=== PATIENT | female | born 1945 | race Caucasian/White ===

== ENCOUNTER → 2019-07-13 08:38 | Outpatient (BNVA) | payer MEDICARE, MEDICAID, SELFPAY | PROVIDERS: Family Provider Internal Medicine; PCP Internal Medicine; Visit Provider Nurse Practitioner Psychiatric/Mental Health | DX: F33.42 Major depressive disorder, recurrent, in full remission (principal); F41.9 Anxiety disorder, unspecified | CPT/HCPCS: 99214 ==

== ENCOUNTER → 2019-10-05 07:46 | Outpatient (BNVA) | payer MEDICARE, MEDICAID, SELFPAY | PROVIDERS: Family Provider Internal Medicine; PCP Internal Medicine; Visit Provider Nurse Practitioner Psychiatric/Mental Health | DX: F41.9 Anxiety disorder, unspecified (principal); F33.42 Major depressive disorder, recurrent, in full remission | CPT/HCPCS: 99212 ==

== ENCOUNTER 2019-11-01 09:20 | Emergency (ER) | payer MEDICARE, MEDICAID, SELFPAY ==
[2019-11-01 09:22] VITALS: BP 142/64; PULSE 90; RESP 18; TEMP 36.6; O2SAT 96; BMI 36.0
--- NOTE | 2019-11-01 09:32 | ED_ITS ---
HPI - Extremity Problem General: Chief complaint: Extremity Injury, Lower Stated complaint: LEFT LEG PAIN S/P FALL Time Seen by Provider: 11/01/19 09:21 History of Present Illness: HPI Narrative: Patient is a 73-year-old female who comes to the ED with left lower extremity pain after having a fall. Fall occurred on Saturday. Patient does take a blood thinner(clopidogrel). patient says she woke up and just got out of bed and she stood up and took a couple steps and started lost her balance and fell down. Denies any loss of consciousness or head trauma. After patient has had a hematoma on left teague it is continually gotten bigger and more painful. Patient also describes having some pain in the hip region when she moves or weightbears. Patient said she does not need any pain meds and says that if she sitting and not moving her pain is like a 1-2 out of 10. Associated symptoms: Deny chest pain, fever(s) or rash Review of Systems Const: Denies: fever(s), chills or fatigue Eyes: Denies: change in vision or eye discomfort ENMT: Denies: throat pain, odynophagia, nasal discharge or nasal congestion Card: Denies: chest pain, palpitations, edema, swelling of feet/ankles, dyspnea on exertion or orthopnea Resp: Denies: dyspnea, productive cough or non-productive cough GI: Denies: abdominal pain, nausea, vomiting, diarrhea, constipation or hematochezia : Denies: flank pain, dysuria or hematuria Musc: Reports: extremity pain (left lower extremity-lower leg and left hip) and extremity swelling; Denies: neck pain or back pain Skin/Breast: Denies: rash or new lesions Neuro: Denies: headache(s), numbness in extremities or weakness in extremities PFS ED PFSH: Medical History Anxiety disorder, unspecified Major depressive disorder, recurrent, in full remission Social History Smoking and tobacco status: former smoker Quit status (tobacco): has quit using tobacco Year quit tobacco: 1196 Former quit date comment: 2 PPD since age 16 Second hand smoke exposure: No Physical Exam Const: COMMON NORMALS: patient oriented x3 HENMT: COMMON NORMALS: normocephalic HEAD & SCALP: normocephalic MOUTH: Normal oral and palatal mucosa present THROAT: posterior oropharynx normal and uvula midline Eye: COMMON NORMALS: Equal, round and reactive pupils present PUPIL: Yes Equal, round and reactive pupils present Neck/C-Spine: COMMON NORMALS: supple GENERAL: Yes normal visual inspection Resp: COMMON NORMALS: normal respiratory effort, No retractions, No use of accessory muscles and clear to auscultation bilaterally AUSCULTATION: clear to auscultation bilaterally Cardio: COMMON NORMALS: regular rate, regular rhythm, S1 normal heart sound present, S2 normal heart sound present, No gallops present (Cardio), No clicks present (Cardio), No murmurs present (Cardio) and Peripheral pulses 2+ throu ghout RATE: regular rate RHYTHM: regular rhythm HEART SOUNDS: S1 normal heart sound present and S2 normal heart sound present PERIPHERAL PULSES: Peripheral pulses 2+ throughout GI: COMMON NORMALS: Normal to inspection, nondistended, normoactive bowel sounds present, Soft to palpation, non-tender and no masses PALPATION: Yes Soft to palpation : COMMON NORMALS: Yes no CVA tenderness BLADDER/KIDNEY EXAM: Yes no CVA tenderness Back/Pelvis: COMMON NORMALS: no CVA tenderness Extremity: GENERAL: Yes normal exam except as noted LEFT LOWER EXTREMITY: Yes hip joint (Patient explained parents some left hip pain upon flexion of leg.) Left hip: No palpation, Yes ROM (Pain in left hip upon flexion of the left leg.) and Yes neurovascular exam (Intact.) and Yes lower leg Left lower leg: Yes inspection (Patient had a large hematoma on anterior medial side of lower leg. Mild swelling), Yes palpation (Tender upon palpation of the hematoma.) and Yes neurovascular exam (intact) Neuro: COMMON NORMALS: patient oriented x3 and moves all extremities Skin: NARRATIVE SKIN EXAM: Patient has a large hematoma on the left lower leg. It is tender to the touch. GENERAL SKIN EXAM: dry skin Course Vital Signs: Vital signs: Vital Signs Temperature 97.9 F 11/01/19 09:22 Pulse Rate 90 11/01/19 09:22 Respiratory Rate 18 11/01/19 09:22 Blood Pressure 142/64 11/01/19 09:22 Pulse Oximetry 96 11/01/19 09:22 MDM - Extremity (Nontraumatic) MDM Narrative: Medical decision making narrative: Patient is a 73-year-old female comes to the ED after having a fall several days ago. She is having left lower extremity pain in lower leg and also in left hip. She has hematoma on her left anterior aspect of lower leg. X-ray of tibia and fibula showed no acute fractures. X-ray of left hip was performed and showed no acute findings or fractures. Ultrasound venous duplex of left lower extremity showed no blood clots or DVTs. Patient was discharged with a hematoma and told to continue taking Tylenol to help with pain and to rest, ice and elevate leg to help with symptoms. Patient told to follow-up with PCP in 7 to 10 days. Patient understood and agreed with plan. Imaging Data^: Xray Ortho: Attestation: I personally reviewed and interpreted this imaging study as follows: Radiologist's impression: [address] [address] XRay Report Signed Patient: Hyun Bowers Unit #: [id number] : 1945 Acc t#:[id number] Age/Sex: 73 / F ADM Date: 11/01/19 Loc: ER Room/Bed: Attending Dr: Ordering Provider/Ordering MD: Felipe Booker Date of Service: 11/01/19 Procedure(s): XR hip LT 2-3V wo/w pel* [id number] Accession Number(s): [id number] Report Number: [id number] PROCEDURE INFORMATION: Exam: XR Left Hip with Pelvis when Performed Exam date and time: 11/01/2019 9:43 AM Age: 73 years old Clinical indication: Hip pain; Left hip; Additional info: Fall, pain in hip with movement TECHNIQUE: Imaging protocol: XR Left hip with pelvis when performed. Views: 2 or 3 views. COMPARISON: None FINDINGS: Bones/joints: Osteopenia, without acute bony injury or malalignment. If an occult fracture is of clinical concern, CT correlation can be performed. Soft tissues: Skin fold. No radiopaque foreign body. XR/XR hip LT 2-3V wo/w pel* [id number] IMPRESSION: Osteopenia, without acute bony injury or malalignment. Dictated By: Allan Connors MD Signed By: Allan Connors MD Signed Date/Time: 11/01/19 1101 DD/ 1100 [facility] [address] [place] [address] XRay Report Signed Patient: Hyun Bowers Unit #: [id number] : 1945 Age/Sex: 73 / F ADM Date: 11/01/19 Loc: ER Room/Bed: Attending Dr: Ordering Provider/Ordering MD: Felipe Booker Date of Service: 11/01/19 Procedure(s): XR tibia fibula LT 2V 13624 Accession Number(s): [id number] Report Number: [id number] PROCEDURE INFORMATION: Exam: XR Left Tibia and Fibula Exam date and time: 11/01/2019 9:43 AM Age: 73 years old Clinical indication: Pain; Lower leg; Left; Additional info: Fall, pain and hematoma TECHNIQUE: Imaging protocol: XR Left tibia and fibula. Views: 2 views. COMPARISON: No relevant prior studies available. FINDINGS: Bones/joints: Osteopenia, without acute bony injury or malalignment in the visualized left lower leg. Degenerative change. Soft tissues: Poorly defined 3.7 cm ovoid density in the soft tissues of the medial calf. XR/XR tibia fibula LT 2V [id number] IMPRESSION: 1. Osteopenia, without acute bony injury or malalignment in the visualized left lower leg. 2. Poorly defined 3.7 cm ovoid density in the soft tissues of the medial calf. Dictated By: Allan Connors MD Signed By: Allan Connors MD Signed Date/Time: 11/01/19 1059 DD/ 105 Vascular: Attestation: I personally reviewed and interpreted this imaging study as follows: Radiologist's impression: Ultrasound venous duplex of left lower extremity- prelim report showed no blood clots or DVTs present. Discharge Plan Discharge Patient Disposition: Home, Self-Care Clinical Impression: Hematoma and contusion Fall as cause of accidental injury at home as place of occurrence Qualifiers: Encounter type: initial encounter Qualified Code(s): W19.XXXA - Unspecified fall, initial encounter Condition: Stable Prescriptions: No Action aspirin [Adult Low Dose Aspirin] 81 mg tablet,delayed release (DR/EC) 81 mg PO DAILY RF: 0 metoprolol succinate 100 mg tablet extended release 24 hr 100 mg PO DAILY RF: 0 metformin 500 mg tablet extended release 24 hr 1,000 mg PO BID RF: 0 buspirone 10 mg tablet 10 mg PO BID Qty: 60 RF: 2 fluoxetine [Prozac] 20 mg capsule 20 mg PO QAM Qty: 30 RF: 2 trazodone 50 mg tablet 50 mg PO .QHS PRN (Reason: insomnia) Qty: 30 RF: 2 azelastine 0.15 % (205.5 mcg) spray,non-aerosol 1 spray INTRANASAL BID PRN (Reason: unknown) RF: 0 pantoprazole [Protonix] 20 mg tablet,delayed release (DR/EC) 20 mg PO DAILY RF: 0 acetaminophen-codeine [Tylenol-Codeine #3] 300-30 mg tablet 1 tab PO Q8H PRN (Reason: Pain) RF: 0 tamsulosin [Flomax] 0.4 mg capsule 0.4 mg PO DAILY RF: 0 clopidogrel 75 mg tablet 75 mg PO DAILY RF: 0 Januvia 100 mg tablet 100 mg PO DAILY RF: 0 Ocuvite Eye Health 50 mg-15 unit- 4.5 mg-2.5 mg tablet,chewable 1 tab PO DAILY RF: 0 bismuth subsalicylate [Pepto-Bismol] 262 mg/15 mL suspension 524 mg PO DAILY PRN (Reason: unknown) RF: 0 artifi.tears(hypromellose)(PF) 0.3 % drops 1 drop ophthalmic (eye) BEDTIME PRN (Reason: unknown) RF: 0 diazepam [Valium] 5 mg tablet 5 mg PO TID PRN (Reason: anxiety) RF: 0 meclizine 25 mg tablet 25 mg PO TID PRN (Reason: dizziness) RF: 0 hydrochlorothiazide 25 mg tablet 25 mg PO DAILY RF: 0 lovastatin 40 mg tablet 40 mg PO DAILY RF: 0 montelukast [Singulair] 10 mg tablet 10 mg PO DAILY RF: 0 magnesium hydroxide [Milk of Magnesia] 400 mg/5 mL suspension 15 ml PO DAILY PRN (Reason: Constipation) RF: 0 fluticasone propionate [Flonase Allergy Relief] 50 mcg/actuation spray,suspension 2 spray INTRANASAL DAILY RF: 0 promethazine-DM 6.25-15 mg/5 mL Syrup 5 ml PO Q6H PRN (Reason: unknown) RF: 0 amlodipine 5 mg Tablet 5 mg PO DAILY RF: 0 Tylenol Extra Strength 500 mg Tablet 500 mg PO Q6H PRN (Reason: Pain) RF: 0 hydralazine 100 mg tablet 100 mg PO TID RF: 0 ammonium lactate 5 % Lotion 1 applic TOPICAL BEDTIME RF: 0 tdocycyq-cqoxtrliv-foxhboxvce 1.75 mg-10,000 unit-0.025mg/mL Drops 1.75 drp ophthalmic (eye) BEDTIME RF: 0 Ocuvite Adult 50 Plus 250-5-1 mg Capsule 1 cap PO DAILY RF: 0 Discharge Orders: Discharge Order (Routine); Ordered 11/01/19 Ordered By: Felipe Booker Referrals: Chidi Anaya DO [Primary Care Provider] - Discharge Diet: Regular Discharge Activity: Increase activity as tolerated Patient Instructions: Contusion in Adults (ED), Fall Prevention (ED) Activity Restrictions/Additional Instructions: Follow-up with your PCP in 7 to 10 days for reevaluation. You can apply cold pack on leg to help with symptoms. Take Tylenol for pain. Coding Level of Care Code ED Billet Heater Operator for Peggy Fwd Exam Comprehensive
--- NOTE | 2019-11-01 09:41 | XRR_ITS ---
PROCEDURE INFORMATION: Exam: XR Left Hip with Pelvis when Performed Exam date and time: 11/01/2019 9:43 AM Age: 73 years old Clinical indication: Hip pain; Left hip; Additional info: Fall, pain in hip with movement TECHNIQUE: Imaging protocol: XR Left hip with pelvis when performed. Views: 2 or 3 views. COMPARISON: None FINDINGS: Bones/joints: Osteopenia, without acute bony injury or malalignment. If an occult fracture is of clinical concern, CT correlation can be performed. Soft tissues: Skin fold. No radiopaque foreign body. XR/XR hip LT 2-3V wo/w pel* [id number] IMPRESSION: Osteopenia, without acute bony injury or malalignment.
--- NOTE | 2019-11-01 09:41 | USR_ITS ---
PROCEDURE INFORMATION: Exam: US Duplex Left Lower Extremity Veins, Limited Exam date and time: 11/01/2019 9:43 AM Age: 73 years old Clinical indication: Pain; Swelling (edema) of limb; Lower extremity, left; Leg, lower; Additional info: Pain and swelling TECHNIQUE: Imaging protocol: Real-time Duplex ultrasound of the Left Lower Extremity with 2-D cody scale, color Doppler flow and spectral waveform analysis with image documentation. Limited exam focused on the left lower extremity veins. COMPARISON: No relevant prior studies available. FINDINGS: Left deep veins: No deep venous thrombosis in the visualized left common femoral, profunda femoris, superficial femoral, popliteal, posterior tibial, or peroneal veins. Left superficial veins: Unremarkable. Saphenofemoral junction is patent without thrombus. Soft tissues: Unremarkable. US/CV venous duplex [facility] [id number] IMPRESSION: No deep venous thrombosis in the visualized left lower extremity.
--- NOTE | 2019-11-01 09:41 | XRR_ITS ---
PROCEDURE INFORMATION: Exam: XR Left Tibia and Fibula Exam date and time: 11/01/2019 9:43 AM Age: 73 years old Clinical indication: Pain; Lower leg; Left; Additional info: Fall, pain and hematoma TECHNIQUE: Imaging protocol: XR Left tibia and fibula. Views: 2 views. COMPARISON: No relevant prior studies available. FINDINGS: Bones/joints: Osteopenia, without acute bony injury or malalignment in the visualized left lower leg. Degenerative change. Soft tissues: Poorly defined 3.7 cm ovoid density in the soft tissues of the medial calf. XR/XR tibia fibula LT 2V [id number] IMPRESSION: 1. Osteopenia, without acute bony injury or malalignment in the visualized left lower leg. 2. Poorly defined 3.7 cm ovoid density in the soft tissues of the medial calf.
[2019-11-01 15:45] VITALS: BP 155/54; PULSE 77; RESP 16; O2SAT 96
== END 2019-11-01 15:26 | disposition home or self-care (01) ==
PROVIDERS: Emergency Provider Physician Assistant; Family Provider Internal Medicine; PCP Internal Medicine
DX: S80.12XA Contusion of left lower leg, initial encounter (principal); Z79.82 Long term (current) use of aspirin; Z79.02 Long term (current) use of antithrombotics/antiplatelets; W19.XXXA Unspecified fall, initial encounter; Z87.891 Personal history of nicotine dependence
CPT/HCPCS: 12345; 73502; 73590; 93971; 99281; 99283

== ENCOUNTER → 2020-01-04 08:46 | Outpatient (BNVA) | payer MEDICARE, MEDICAID, SELFPAY | PROVIDERS: Family Provider Internal Medicine; PCP Internal Medicine; Visit Provider Nurse Practitioner Psychiatric/Mental Health | DX: F41.9 Anxiety disorder, unspecified (principal); F33.42 Major depressive disorder, recurrent, in full remission | CPT/HCPCS: 99212 ==

== ENCOUNTER 2020-03-28 10:25 | Outpatient (CLI) | payer MEDICARE, MEDICAID, SELFPAY ==
--- NOTE | 2020-03-28 10:32 | MM_ITS ---
WS: [id number] BILATERAL DIGITAL SCREENING MAMMOGRAPHY WITH CAD CLINICAL INFORMATION: SCREENING HISTORY: Screening mammogram. No current complaints. COMPARISON: TECHNIQUE: Bilateral CC and MLO views. FINDINGS: Scattered fibroglandular densities bilaterally. No suspicious focal mass, asymmetry, calcifications, or architectural distortion. No evidence of malignancy. Lucent centered calcifications. Dystrophic ca lcification right breast. Vascular calcification. MM/[place] [id number] IMPRESSION: BI-RADS: 2-Benign FOLLOW UP: 1 Year Follow-up Recommend return to annual screening mammography.
== END 2020-03-28 10:26 | disposition home or self-care (01) ==
LOC: RADSHAW 10:28
PROVIDERS: PCP Internal Medicine; Visit Provider Internal Medicine
DX: Z12.31 Encounter for screening mammogram for malignant neoplasm of breast (principal)
CPT/HCPCS: 99211; 77067; G0463

== ENCOUNTER → 2020-06-13 08:19 | Outpatient (BNVA) | payer MEDICARE, MEDICAID, SELFPAY | PROVIDERS: PCP Internal Medicine; Visit Provider Nurse Practitioner Psychiatric/Mental Health | DX: F33.42 Major depressive disorder, recurrent, in full remission (principal); F41.9 Anxiety disorder, unspecified | CPT/HCPCS: 99212 ==

== ENCOUNTER → 2020-08-29 10:08 | Outpatient (BNVA) | payer MEDICARE, MEDICAID, SELFPAY | PROVIDERS: PCP Internal Medicine; Visit Provider Nurse Practitioner Psychiatric/Mental Health | DX: F33.42 Major depressive disorder, recurrent, in full remission (principal); F41.9 Anxiety disorder, unspecified | CPT/HCPCS: 99213 ==

== ENCOUNTER → 2020-12-06 13:59 | Outpatient (BNVA) | payer MEDICARE, MEDICAID, SELFPAY | PROVIDERS: PCP Internal Medicine; Visit Provider Nurse Practitioner Psychiatric/Mental Health | DX: F33.42 Major depressive disorder, recurrent, in full remission (principal); F41.9 Anxiety disorder, unspecified | CPT/HCPCS: 99213 ==

== ENCOUNTER 2021-01-25 14:19 | Outpatient (CLI) | payer MEDICARE, MEDICAID, SELFPAY ==
--- NOTE | 2021-01-25 14:23 | XR_ITS ---
WS: [id number] DEXA (DUAL ENERGY X-RAY ABSORPTIOMETRY) Bone mineral density was performed using a [employer] machine. HISTORY: POST MENOPAUSAL COMPARISON: None available. Lumbar spine BMD (L1-L4): 1.359 g/cm2 T score: 1.5 Z score: 2.1 Total hip BMD: Left: 0.686 g/cm2. T score: -2.6 Z score: -1.6 Right: 0.773 g/cm2. T score: -1.9 Z score: -0.9 10 year probability of a major osteoporotic fracture is 24%. XR/XR DEXA axial skeleton* [id number] IMPRESSION: OSTEOPOROSIS based upon the WHO classification for females.
== END 2021-01-25 14:20 | disposition home or self-care (01) ==
PROVIDERS: PCP Internal Medicine; Visit Provider Physician Assistant
DX: Z78.0 Asymptomatic menopausal state (principal); M81.0 Age-related osteoporosis without current pathological fracture
CPT/HCPCS: 77080

== ENCOUNTER → 2021-02-28 12:29 | Outpatient (BNVA) | payer MEDICARE, MEDICAID, SELFPAY | PROVIDERS: PCP Internal Medicine; Visit Provider Nurse Practitioner Psychiatric/Mental Health | DX: F33.42 Major depressive disorder, recurrent, in full remission (principal); F41.9 Anxiety disorder, unspecified | CPT/HCPCS: 99213 ==

== ENCOUNTER 2021-05-08 11:28 | Outpatient (CLI) | payer MEDICARE, MEDICAID, SELFPAY ==
[2021-05-08 12:43] LABS: Basophils % 0.9 %; Eosinophils # 0.1 10^3/uL (0.0-0.8); Eosinophils % 1.6 %; Hematocrit 33.6 % (37.0-47.0); Hemoglobin 10.5 g/dL (11.5-15.3); Lymphocytes % 23.2 %; Mean Corpuscular HGB Conc 31.3 g/dL (30.0-36.0); Mean Corpuscular Hemoglobin 26.9 pg (28.0-34.0); Mean Corpuscular Volume 85.9 fl (81-99); Mean Platelet Volume 9.7 fL (7.4-10.4); Monocytes # 0.3 10^3/uL (0.2-0.9); Monocytes % 7.7 %; Neutrophils # 2.92 10^3/uL (1.8-7.7); Neutrophils % 66.4 %; Nucleated Red Blood Cells % 0 %; Platelet Count 191 10^3/cmm (130-400); Red Blood Count 3.91 10^6/uL (4.1-5.3); Red Cell Distribution Width 15.6 % (12.1-15.1); White Blood Count 4.4 10^3/uL (4.0-10.0)
--- NOTE | 2021-05-08 14:08 | ONC FU_ITS ---
Dr. Butler follow up note Patient: Hyun Bowers Unit #: [id number]: 1945 Dicatated By: Ben Butler M.D.Date of Visit:May 08, 2021 Onc Med Follow-up/Prog Note History of Present Illness: Ms. Hyun Bowers, is a 75-year-old female, who was evaluated by her PMD for generalized weakness and fatigue and dizziness in February 2021, at that time routine lab work-up done on February 16, 2021 showed white blood count 5.6 hemoglobin 9.6 hematocrit 30.1, platelets 206,000, iron studies shows ferritin 3, iron saturation 8%, TIBC 390, iron 32, B12 204, SPEP no M protein, hepatitis B surface antigen, nonreactive but positive for hepatitis B surface antibody. Patient denies any history of melena or hematochezia, denies any history of anemia, denies any history of recent blood transfusion, as per patient only time she received blood transfusion was when she was with her last baby about 45 years ago. 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 Denies any night sweats, denies any weight loss, denies any recurrent fever, denies any history of gastric surgery, denies any jaundice, denies any abdominal pain, denies any urine or stool color changes As per patient , she was started on oral iron supplement in February 2021, tolerating reasonably well Medications: Acetaminophen 1 - 2 Tablet (of 500 mg) Oral q 4 hours PRN, Acetaminophen-Codeine 1 Tablet (of 300-30 mg) Oral q 8 minutes PRN, amLODIPine Besylate 1 Tablet (of 10 mg) Oral daily, Artificial Tear Solution Solution Ophthalmic PRN, Aspirin 1 Tablet (of 81 mg) Tablet, enteric coated Oral daily, Azelastine HCl 1 Arona(s) (of 0.15 %) Solution Nasal b.i.d. PRN, busPIRone HCl 1 Tablet (of 10 mg) Oral daily, Chlorthalidone 1 Tablet (of 25 mg) Oral daily, Clopidogrel Bisulfate 1 Tablet (of 75 mg) Oral daily, diazePAM 1 Tablet (of 5 mg) Oral q 8 hours PRN, Ferrous Sulfate 1 Tablet (of 325 (65 fe) mg) Oral daily, Flonase 1 Arona(s) (of 50 mcg/act) Suspension Nasal daily, FLUoxetine HCl 1 Capsule (of 20 mg) Oral daily, Fosamax , hydrALAZINE HCl 1 Tablet (of 100 mg) Oral t.i.d., Januvia 1 Tablet (of 100 mg) Oral daily, Lovastatin 1 Tablet (of 20 mg) Oral at bedtime, Meclizine HCl 1 Tablet (of 25 mg) Oral q 8 hours PRN, metFORMIN HCl ER (OSM) 1 Tablet (of 1000 mg) Tablet SR 24 HR Oral b.i.d., Metoprolol Succinate ER 1 Tablet (of 100 mg) Tablet SR 24 HR Oral daily, Milk of Magnesia Suspension Oral PRN, Ocuvite Adult 50+ 1 Capsule Oral daily, Promethazine-DM 5 mL (of 5-7.5 mg/5mL) Syrup Oral q 6 hours PRN, Protonix 1 Tablet Intravenous daily, Tamsulosin HCl 1 Tablet (of 0.4 mg) Capsule Oral daily Allergies: No Known Allergies. Review of Systems: Review of Systems is not available for this patient. Vital Signs: Performed on May 08, 2021 13:19 Height - 66 in Weight - 221 lbs (HIGH) BSA - 2.09 sq.m BMI - 35.67 (HIGH) Temperature - 97.7 F (LOW) Pulse - 75 /min Respiration - 18 /min BP - 127/72 mm(hg) O2 Sat - 98 % Pain - 0 Fatigue - 5 Performance Status: 1 - No physically strenuous activity, but ambulatory and able to carry out light or sedentary work (e.g. office work, light house work). (ECOG) Physical Examination: ENMT - No mouth sores, no thrush, no jaundice, No cervical lymphadenopathy, Respiratory - Lungs are clear to auscultation, Cardiovascular - Regular rate and rhythm of heart, Abdomen - Soft, bowel sounds present, Extremities - 1+ edema bilaterally. Lab/Imaging: Most recent lab results are not available for this patient. Impression: Combined iron deficiency/B12 deficiency anemia diagnosed per labs done on February 16, 2021 which showed ferritin 3, iron saturation 8%, TIBC 390, B12 204, SPEP, no restricted protein, Generalized weakness fatigue, due to above Hepatitis C positive, Diabetes mellitus, Of hypertension, CHF, Osteoporosis, Plan: Discussed with patient regarding her labs white blood count 4.4 hemoglobin 10.5 hematocrit 33.6 platelets 191,000 MCV 85.9 with normal differential Clinically, patient is doing well, feeling somewhat better since on iron supplement, her follow-up labs shows hemoglobin improved to 10.5 g compared to 9.6 g on February 16, 2021. Etiology of her combined iron/B12 deficiency is unclear could be due to malabsorption plus minus chronic blood loss. At this point we will add, B12 supplement 1000 mcg IM weekly x4, as a loading dose then monthly as maintenance, we will also repeat her iron studies today and compared with one from February 2021, if there is improvement in iron stores, will continue oral iron otherwise we may consider parenteral iron. We will also refer her to gastroenterology for EGD/colonoscopy for iron deficiency anemia. And then patient will return to clinic in 1 month with CBC, iron studies and B12 supplement. Signed By: Ben Butler M.D. <<Signature on File>>
[2021-05-08] MEDS: cyanocobalamin 1,000 mcg/mL SDV 1000 MCG SUBCUT (14:33)
[2021-05-08 15:27] LABS: Ferritin 21 ng/mL (15-150); Iron 29 ug/dL (37-145); Percent Saturation 9.6 % (20-50); Total Iron Binding Capacity 301 mcg/dl; Unsaturated Iron Binding 272 ug/dL (112-347)
== END 2021-05-08 11:29 | disposition home or self-care (01) ==
LOC: ONCMED 11:32
PROVIDERS: PCP Internal Medicine; Visit Provider Internal Medicine Hematology & Oncology
DX: D50.9 Iron deficiency anemia, unspecified (principal); E53.8 Deficiency of other specified B group vitamins; B19.20 Unspecified viral hepatitis C without hepatic coma; E11.9 Type 2 diabetes mellitus without complications; I11.0 Hypertensive heart disease with heart failure; I50.9 Heart failure, unspecified; M81.0 Age-related osteoporosis without current pathological fracture
CPT/HCPCS: 36415; 82728; 83540; 83550; 85025; 96372; 99205; J3420

== ENCOUNTER 2021-05-15 13:16 | Outpatient (CLI) | payer MEDICARE, MEDICAID, SELFPAY ==
[2021-05-15] MEDS: cyanocobalamin 1,000 mcg/mL SDV 1000 MCG IM (13:46)
== END 2021-05-15 13:17 | disposition home or self-care (01) ==
LOC: ONCMED 13:20
PROVIDERS: PCP Internal Medicine; Visit Provider Internal Medicine Medical Oncology
DX: D50.9 Iron deficiency anemia, unspecified (principal); D51.9 Vitamin B12 deficiency anemia, unspecified; Z79.899 Other long term (current) drug therapy
CPT/HCPCS: 96372; J3420

== ENCOUNTER → 2021-05-30 07:31 | Outpatient (BNVA) | payer MEDICARE, MEDICAID, SELFPAY | PROVIDERS: PCP Internal Medicine; Visit Provider Nurse Practitioner Psychiatric/Mental Health | DX: F33.42 Major depressive disorder, recurrent, in full remission (principal); F41.9 Anxiety disorder, unspecified | CPT/HCPCS: 99213 ==

== ENCOUNTER → 2021-10-16 13:16 | Outpatient (BNVA) | payer MEDICARE, MEDICAID, SELFPAY | PROVIDERS: PCP Internal Medicine; Visit Provider Nurse Practitioner Psychiatric/Mental Health | DX: F33.42 Major depressive disorder, recurrent, in full remission (principal); F41.9 Anxiety disorder, unspecified | CPT/HCPCS: 99213 ==

== ENCOUNTER → 2021-10-18 08:34 | Outpatient (BNVA) | payer MEDICARE, MEDICAID, SELFPAY | PROVIDERS: PCP Internal Medicine; Referring Provider Physician Assistant; Visit Provider Podiatrist Foot & Ankle Surgery | DX: E11.621 Type 2 diabetes mellitus with foot ulcer (principal); L97.522 Non-pressure chronic ulcer of other part of left foot with fat layer exposed; E11.42 Type 2 diabetes mellitus with diabetic polyneuropathy; M21.611 Bunion of right foot; M20.41 Other hammer toe(s) (acquired), right foot; M20.42 Other hammer toe(s) (acquired), left foot; L85.3 Xerosis cutis; M76.829 Posterior tibial tendinitis, unspecified leg; I73.9 Peripheral vascular disease, unspecified; Z91.81 History of falling; M21.612 Bunion of left foot | CPT/HCPCS: 11042 ==

== ENCOUNTER 2021-10-18 10:54 | Outpatient (CLI) | payer MEDICARE, MEDICAID, SELFPAY | END 2021-10-18 10:55 | disposition home or self-care (01) | LOC: SPT 10:54 | PROVIDERS: PCP Internal Medicine; Visit Provider Podiatrist Foot & Ankle Surgery | DX: Z46.89 Encounter for fitting and adjustment of other specified devices (principal); L97.522 Non-pressure chronic ulcer of other part of left foot with fat layer exposed | CPT/HCPCS: 97760; L4361 ==

== ENCOUNTER → 2021-11-09 11:51 | Outpatient (BNVA) | payer MEDICARE, MEDICAID, SELFPAY | PROVIDERS: PCP Internal Medicine; Visit Provider Podiatrist Foot & Ankle Surgery | DX: I73.9 Peripheral vascular disease, unspecified (principal); E11.42 Type 2 diabetes mellitus with diabetic polyneuropathy; Z09 Encounter for follow-up examination after completed treatment for conditions other than malignant neoplasm; Z91.81 History of falling; M21.611 Bunion of right foot; M21.612 Bunion of left foot; M20.41 Other hammer toe(s) (acquired), right foot; M20.42 Other hammer toe(s) (acquired), left foot; L85.3 Xerosis cutis; M76.829 Posterior tibial tendinitis, unspecified leg | CPT/HCPCS: 99214 ==

== ENCOUNTER 2021-12-10 08:48 | Inpatient (IN) | payer MEDICARE, MEDICAID, SELFPAY ==
[2021-12-10] VITALS (12 sets, daily range): BP systolic 104–139; BP diastolic 51–64; PULSE 50–76; RESP 16; TEMP 36.4–37.2; O2SAT 93–100; BMI 38.0
--- NOTE | 2021-12-10 08:51 | ED_ITS ---
HPI - Syncope General: Chief Complaint: Dizziness Stated Complaint: FALL; SYNCOPE Time Seen by Provider: 12/10/21 08:51 History of Present Illness: Ms. Bowers is a 76-year-old lady with complex past medical history including hypertension, hyperlipidemia, diabetes, on Plavix who presents to the emergency department due to fall. Apparently she has fallen multiple times this week. She describes presyncopal feeling with walking earlier today. She denies specific provoking factor including sudden position change. Denies associated chest pain or shortness of breath. Currently has facial pain associated with fall. Denies full syncope. Reports normal p.o. intake. No infectious symptoms. Intensity symptoms when present was severe. Course is improved. No other specific changes in health, exacerbating, or alleviating factors identified. Onset (ago): day(s) Prodromal symptoms: lightheaded Injuries sustained associated with event: face Review of Systems General: Reports: 10 or more systems reviewed and unremarkable except in HPI and below PFSH ED PFSH: Medical History Anxiety disorder, unspecified Blind Diabetes Diastolic CHF GERD (gastroesophageal reflux disease) Hepatitis C Hyperlipidemia Hypertension Major depressive disorder, recurrent, in full remission Psychiatric care Surgical History History of eye surgery Social History Smoking and tobacco status: never smoked Quit status (tobacco): has quit using tobacco Year quit tobacco: 1196 Former quit date comment: 2 PPD since age 16 Second hand smoke exposure: No Physical Exam Const: COMMON NORMALS: alert GENERAL APPEARANCE: cooperative and well developed HENMT: COMMON NORMALS: normocephalic HEAD & SCALP: normocephalic THROAT: posterior oropharynx normal OTHER: Contusions noted. No dawkins signs or raccoon eyes. No hemotympanum. No otorrhea or rhinorrhea. Jaw alignment normal. Dentition baseline. No obvious bony step-offs. No septal hematoma. No evidence of ocular entrapment. Eye: COMMON NORMALS: conjunctivae normal CONJUNCTIVA: Yes conjunctivae normal SCLERA: sclerae normal Neck/C-Spine: COMMON NORMALS: supple GENERAL: Yes trachea midline Resp: COMMON NORMALS: clear to auscultation bilaterally EFFORT & INSPECTION: Yes able to speak in complete sentences AUSCULTATION: clear to auscultation bilaterally Cardio: COMMON NORMALS: regular rate and regular rhythm RATE: regular rate RHYTHM: regular rhythm GI: COMMON NORMALS: Soft to palpation PALPATION: Yes Soft to palpation, Yes Tenderness to palpation present (GI), No Guarding due to palpation present (GI) and No Rigid due to palpation PERCUSSION: normal to percussion Extremity: GENERAL: Yes normal exam except as noted and Yes edema Neuro: COMMON NORMALS: moves all extremities SENSORIUM/ORIENTATION: Yes alert and No Orientation impaired Psych: COMMON NORMALS: mental status grossly normal and Normal thought process present THOUGHT PROCESS: Normal thought process present Skin: NARRATIVE SKIN EXAM: Scattered contusions Course ED course: - Patient was seen and evaluated by me at bedside - Patient placed on cardiac monitors, IV access obtained - Initial evaluation notable for exam as above - Labs personally interpreted by me. EKG shows sinus rhythm with interventricular conduction delay, no STEMI. -Analgesia given - Labs notable for mild leukocytosis, normocytic anemia. Metabolic panel with mild evidence of dehydration. Delta troponin negative. BNP mildly elevated. Urinalysis not likely indicative of infection given squamous epithelial conta mination and absence of urinary symptoms. - Imaging notable for no acute bony trauma to head, face, neck. No acute traumatic injury to chest, abdomen, pelvis. - Upon serial reexamination after treatment the patient was mildly improved - Based on patient history, evaluation, and testing as interpreted the most likely cause of the patient's condition is recurrent syncope of unclear etiology in a patient who is not low risk - The results of ED evaluation were discussed with the patient including plan for admission due to requirement for level of care not available if discharged to prevent significant worsening/deterioration. - Admitting service was contacted and Dr Perez with the hospitalist service agreed to admit the patient - Patient was admitted without further deterioration or significant events. Note: Click bubbles or prepopulated ny in note writing are used for assistance with data collection and billing and are inherently more limited than narrative and other text portions of this note. Please use narrative for additional clinical history and defer to narrative/free test for any case of contradictory information. If information appears in only free text or click bubble it should be considered present or absent as reported. Please contact note internal communications writer for clarifications of clinical information or contradictory information. MDM is a brief summary, contradictory or erroneous seeming information should be clarified and full note should be reviewed. Vital Signs: Vital signs: Vital Signs Temperature 98.1 F 12/13/21 16:00 Pulse Rate 92 12/13/21 16:00 Respiratory Rate 16 12/13/21 16:00 Blood Pressure 167/73 12/13/21 16:00 Pulse Oximetry 99 12/13/21 16:00 MDM - Syncope Medical Decision Making 76-year-old lady presenting with recurrent falls of unclear etiology. No clear cause identified on ED evaluation. Admitted for further investigation and management. Medical Records I reviewed the patient's medical records. Lab Data I reviewed the patient's lab results. : 12/11/21 05:25 12/13/21 04:57 Radiology Impressions Cervical Spine CT 12/10/21 09:11 IMPRESSION: No acute findings. Chest/Abdomen/Pelvis CT 12/10/21 09:11 IMPRESSION: No acute findings.Multivessel atherosclerotic disease which involves the coronary arteries. IMPRESSION: 1. No acute traumatic findings. 2. There is sludge and/or gravel/small stones in the gallbladder. COMMENTS: Consistent with the [employer]'s Incidental Findings Committee white paper (J Am Apoorva Radiol 2018): Any incidental renal lesion less than 1 cm or classified as too small to characterize, or any incidental cystic renal lesion characterized as simple-appearing, is likely benign. No follow-up imaging is recommended for these lesions per consensus recommendations based on imaging criteria. Face CT 12/10/21 09:11 IMPRESSION: No acute findings. Head CT 12/10/21 09:11 IMPRESSION: No acute intracranial abnormality. Carotid Doppler Study 12/11/21 16:02 IMPRESSION: 1. Mild less than 50% stenosis within the right carotid bulb proximal internal carotid artery 2. Moderate 50-75% stenosis within the left carotid bulb and proximal internal carotid artery. REFERENCES: SRU CRITERIA. The degree of internal carotid artery stenosis is based on criteria defined by the Society of Radiologists in Ultrasound (SRU). Normal is no stenosis. Mild is less than 50% stenosis. Moderate is 50-69% stenosis. Severe is greater than 69% stenosis to near occlusion. Near occlusion is a markedly narrowed lumen. Total occlusion is no detectable patent lumen. Laboratory Results WBC 11.3 10^3/uL (4.0-10.0) H 12/10/21 10:42 RBC 3.75 10^6/uL (4.1-5.3) L 12/10/21 10:42 Hgb 10.8 g/dL (11.5-15.3) L 12/10/21 10:42 Hct 32.1 % (37.0-47.0) L 12/10/21 10:42 MCV 85.6 fl (81-99) 12/10/21 10:42 MCH 28.8 pg (28.0-34.0) 12/10/21 10:42 MCHC 33.6 g/dL (30.0-36.0) 12/10/21 10:42 RDW 13.2 % (12.1-15.1) 12/10/21 10:42 Plt Count 231 10^3/cmm (130-400) 12/10/21 10:42 MPV 9.6 fL (7.4-10.4) 12/10/21 10:42 Neut % (Auto) 79.0 % 12/10/21 10:42 Lymph % (Auto) 11.8 % 12/10/21 10:42 [place] % (Auto) 8.1 % 12/10/21 10:42 Eos % (Auto) 0.4 % 12/10/21 10:42 Baso % (Auto) 0.2 % 12/10/21 10:42 Neut # (Auto) 8.93 10^3/uL (1.8-7.7) H 12/10/21 10:42 Lymph # (Auto) 1.3 10^3/uL (0.8-4.8) 12/10/21 10:42 [place] # (Auto) 0.9 10^3/uL (0.2-0.9) 12/10/21 10:42 Eos # (Auto) 0.0 10^3/uL (0.0-0.8) 12/10/21 10:42 Baso # (Auto) 0.0 10^3/uL (0.0-0.1) 12/10/21 10:42 Nucleated RBC % (auto) 0 % 12/10/21 10:42 Nucleated RBCs # 0.0 /100WBC 12/10/21 10:42 Sodium 135 mmol/L (136-145) L 12/10/21 10:42 Potassium 3.7 mmol/L (3.5-5.1) 12/10/21 10:42 Chloride 99 mmol/L (98-107) 12/10/21 10:42 Carbon Dioxide 21 mmol/L (22-29) L 12/10/21 10:42 Anion Gap 18.7 (5-19) 12/10/21 10:42 BUN 32 mg/dL (8-23) H 12/10/21 10:42 Creatinine 1.3 mg/dL (0.5-0.9) H 12/10/21 10:42 GFR Calculation Not Reportable 12/10/21 10:42 Glucose 187 mg/dL (65-115) H 12/10/21 10:42 POC Glucose 193 mg/dL (70-110) H 12/10/21 10:06 Estimat Average Glucose 143 12/10/21 10:42 Hemoglobin A1c 6.6 % (4.0-6.0) H 12/10/21 10:42 Calculated Osmolality 292 mOsm/kg (285-295) 12/10/21 10:42 Calcium 8.8 mg/dL (8.5-10.5) 12/10/21 10:42 Total Bilirubin 0.4 mg/dL (0.15-1.2) 12/10/21 10:42 AST 12 U/L (0-32) 12/10/21 10:42 ALT 11 U/L (0-33) 12/10/21 10:42 Alkaline Phosphatase 60 IU/L (35-105) 12/10/21 10:42 Troponin T Baseline 21 ng/L (0-10) H 12/10/21 10:42 Troponin T 120 Minute 21.82 ng/L (0-10) H 12/10/21 13:01 Delta Troponin T 0.82 ABS# (0-10) 12/10/21 13:01 NT-Pro-B Natriuret Pep 4966 pg/mL (0-450) H 12/10/21 10:42 Total Protein 7.3 g/dL (6.6-8.7) 12/10/21 10:42 Albumin 3.9 g/dL (3.5-5.2) 12/10/21 10:42 Globulin 3.4 g/dL (1.3-4.6) 12/10/21 10:42 TSH 0.82 uIU/mL (0.27-4.20) 12/10/21 10:42 Urine Color Yellow (Yellow) 12/10/21 12:48 Urine Appearance Clear (CLEAR) 12/10/21 12:48 Urine pH 5 (5-7) 12/10/21 12:48 Ur Specific [place] 1.020 (1.005-1.030) 12/10/21 12:48 Urine Protein Neg (Negative) 12/10/21 12:48 Urine Glucose (UA) Norm (Normal) 12/10/21 12:48 Urine Ketones Negative (Negative) 12/10/21 12:48 Urine Blood Neg (Negative) 12/10/21 12:48 Urine Nitrate Negative (Negative) 12/10/21 12:48 Urine Bilirubin 1+ (Negative) H 12/10/21 12:48 Urine Urobilinogen Norm mg/dL (Negative) 12/10/21 12:48 Ur Leukocyte Esterase 1+ (Negative) H 12/10/21 12:48 Urine RBC None /hpf (0-2) 12/10/21 12:48 Urine WBC 10-15 /hpf (0-5) H 12/10/21 12:48 Ur Squamous Epith Cells 5-10 /hpf (0-5) H 12/10/21 12:48 Amorphous Sediment Not Reportable 12/10/21 12:48 Urine Bacteria 2+ /hpf (NONE) H 12/10/21 12:48 Ur Random Sodium 38 mmol/L 12/10/21 12:48 Discharge Plan Discharge Patient Disposition: Placed in Observation Admit Provider: Crys Perez Clinical Impression: Recurrent syncope Discharge Diet: Advance as tolerated Discharge Activity: Use walker/crutches as instructed and As per PT/OT instructions Coding Level of Care Code ED Director Of Programming for Peggy Hope
--- NOTE | 2021-12-10 09:11 | CTR_ITS ---
PROCEDURE INFORMATION: Exam: CT Cervical Spine Without Contrast Exam date and time: 12/10/2021 10:26 AM Age: 76 years old Clinical indication: Injury or trauma; Fall; Blunt trauma; Additional info: Fall, syncope TECHNIQUE: Imaging protocol: Computed tomography of the cervical spine without contrast. Radiation optimization: All CT scans at this facility use at least one of these dose optimization techniques: automated exposure control; mA and/or kV adjustment per patient size (includes targeted exams where dose is matched to clinical indication); or iterative reconstruction. COMPARISON: CT Cervical Spine wo* [id number] 02/04/2018 9:39 PM RADIATION DOSE METRICS: Total DLP (mGy-cm): 359.87 FINDINGS: Bones/joints: No acute fracture. Normal alignment. Discs/Spinal canal/Neural foramina: No significant disc protrusion. No severe spinal canal stenosis. No significant neural foraminal narrowing. Lungs: Lung apices are normal. Soft tissues: Unremarkable. CT/CT cervical spin wo con* [id number] IMPRESSION: No acute findings.
--- NOTE | 2021-12-10 09:11 | CTR_ITS ---
PROCEDURE INFORMATION: Exam: CT Head Without Contrast Exam date and time: 12/10/2021 10:20 AM Age: 76 years old Clinical indication: Injury or trauma; Fall; Blunt trauma (contusions or hematomas); Without loss of consciousness; Additional info: Fall, facial injury TECHNIQUE: Imaging protocol: Computed tomography of the head without contrast. Radiation optimization: All CT scans at this facility use at least one of these dose optimization techniques: automated exposure control; mA and/or kV adjustment per patient size (includes targeted exams where dose is matched to clinical indication); or iterative reconstruction. COMPARISON: CT head wo con* [id number] 02/04/2018 9:35 PM RADIATION DOSE METRICS: Total DLP (mGy-cm): 1184.5 FINDINGS: Brain: No hemorrhage. No edema. Moderate diffuse cerebral atrophy. No significant white matter disease. No mass effect. Cerebral ventricles: No ventriculomegaly. Paranasal sinuses: Visualized sinuses are unremarkable. No fluid levels. Mastoid air cells: Visualized mastoid air cells are well aerated. Bones/joints: Unremarkable. No acute fracture. Soft tissues: Unremarkable. CT/CT head wo con* [id number] IMPRESSION: No acute intracranial abnormality.
--- NOTE | 2021-12-10 09:11 | CTR_ITS ---
PROCEDURE INFORMATION: Exam: CT Maxillofacial Without Contrast Exam date and time: 12/10/2021 10:23 AM Age: 76 years old Clinical indication: Injury or trauma; Fall; Blunt trauma (contusions or hematomas); Jaw; Bilateral; Additional info: Fall, facial injury TECHNIQUE: Imaging protocol: Computed tomography of the of the face without contrast. Radiation optimization: All CT scans at this facility use at least one of these dose optimization techniques: automated exposure control; mA and/or kV adjustment per patient size (includes targeted exams where dose is matched to clinical indication); or iterative reconstruction. COMPARISON: CT head wo con* [id number] 12/10/2021 10:20 AM RADIATION DOSE METRICS: Total DLP (mGy-cm): 589.55 FINDINGS: Orbital cavities: Orbits are normal. Globes are unremarkable. Bones/joints: No acute fracture. Paranasal sinuses: Normal. No air-fluid levels. Soft tissues: Unremarkable. CT/CT facial bones wo con* [id number] IMPRESSION: No acute findings.
--- NOTE | 2021-12-10 09:11 | CTR_ITS ---
PROCEDURE INFORMATION: Exam: CT Chest Without Contrast; Diagnostic Exam date and time: 12/10/2021 10:29 AM Age: 76 years old Clinical indication: Injury or trauma; Fall; Generalized; Blunt trauma (contusions or hematomas); Additional info: Syncope fall TECHNIQUE: Imaging protocol: Diagnostic computed tomography of the chest without contrast. Radiation optimization: All CT scans at this facility use at least one of these dose optimization techniques: automated exposure control; mA and/or kV adjustment per patient size (includes targeted exams where dose is matched to clinical indication); or iterative reconstruction. COMPARISON: CR Chest 1 [place] [id number] 05/22/2018 2:51 AM RADIATION DOSE METRICS: Total DLP (mGy-cm): 1242.1 FINDINGS: Lungs: Unremarkable. No consolidation. No masses. Pleural spaces: Unremarkable. No pneumothorax. No pleural effusion. Heart: Multivessel atherosclerotic disease which involves the coronary arteries. There are calcifications in the mitral and aortic valves. Lymph nodes: Unremarkable. No enlarged lymph nodes. Vasculature: Unremarkable. No aortic aneurysm. Bones/joints: There are thoracolumbar scoliotic curvatures. Degenerative changes are present in the visualized spine. Soft tissues: Unremarkable. PROCEDURE INFORMATION: Exam: CT Abdomen And Pelvis Without Contrast Exam date and time: 12/10/2021 10:29 AM Age: 76 years old Clinical indication: Injury or trauma; Fall; Generalized; Blunt trauma (contusions or hematomas); Additional info: Syncope fall TECHNIQUE: Imaging protocol: Computed tomography of the abdomen and pelvis without contrast. Radiation optimization: All CT scans at this facility use at least one of these dose optimization techniques: automated exposure control; mA and/or kV adjustment per patient size (includes targeted exams where dose is matched to clinical indication); or iterative reconstruction. COMPARISON: CR XR hip RT 2-3V wo/w pel* [id number] 12/07/2021 8:58 AM RADIATION DOSE METRICS: Total DLP (mGy-cm): 1242.1 FINDINGS: Heart: Multivessel atherosclerotic disease which involves the coronary arteries. Liver: Normal. No mass. Gallbladder and bile ducts: There is sludge and/or gravel/small stones in the gallbladder. Pancreas: Moderate fatty atrophy of the pancreas. Spleen: Normal. No splenomegaly. Adrenal glands: Normal. No mass. Kidneys and ureters: Bilateral renal cortical thinning. There is a 17 mm cyst with benign features in the left kidney. Follow-up is not necessary. A 5 mm left renal cyst is too small to further characterize. Stomach and bowel: Unremarkable. No obstruction. No mucosal thickening. Appendix: A normal appendix is identified. Intraperitoneal space: Unremarkable. No free air. No significant fluid collection. Vasculature: Unremarkable. No abdominal aortic aneurysm. Lymph nodes: Unremarkable. No enlarged lymph nodes. Urinary bladder: Unremarkable as visualized. Reproductive: Unremarkable as visualized. Bones/joints: There are degenerative changes across the hip joints, right greater than left. Degenerative changes extend across the pubic symphysis and sacroiliac joints. Degenerative changes are present in the visualized spine. There are lumbar broad-based disc osteophyte complexes contributing to bilateral neural foraminal narrowing. Soft tissues: Unremarkable. CT/[place] [id number] IMPRESSION: No acute findings.Multivessel atherosclerotic disease which involves the coronary arteries. IMPRESSION: 1. No acute traumatic findings. 2. There is sludge and/or gravel/small stones in the gallbladder. COMMENTS: Consistent with the [employer]'s Incidental Findings Committee white paper (J Am Apoorva Radiol 2018): Any incidental renal lesion less than 1 cm or classified as too small to characterize, or any incidental cystic renal lesion characterized as simple-appearing, is likely benign. No follow-up imaging is recommended for these lesions per consensus recommendations based on imaging criteria.
--- NOTE | 2021-12-10 09:12 | ECG_ITS ---
[facility] Test Date: 2021-12-10 Pat Name: Hyun Bowers Department: Room: Gender: Female Sailmaker: : 1945 Requested By: Christopher Campa Order Number: [id number] Fátima MD: Filiberto Molina M.D. Measurements Intervals [place] Rate: 69 P: 26 ND: 189 QRS: -23 QRSD: 117 T: 40 QT: 386 QTc: 416 Interpretive Statements SINUS RHYTHM BORDERLINE LEFT AXIS DEVIATION [QRS AXIS < -20] MODERATE INTRAVENTRICULAR CONDUCTION DELAY [110+ ms QRS DURATION] Compared to ECG 05/22/2018 02:50:42 Intraventricular conduction delay now present Poor R-wave progression no longer present Electronically Signed On 12-10-2021 23:35:33 CDT by Filiberto Molina M.D. [id number]
[2021-12-10 10:12] LABS: Glucose Point of Care 193 mg/dL (70-110)
[2021-12-10 10:59] LABS: Basophils % 0.2 %; Eosinophils % 0.4 %; Hematocrit 32.1 % (37.0-47.0); Hemoglobin 10.8 g/dL (11.5-15.3); Lymphocytes # 1.3 10^3/uL (0.8-4.8); Lymphocytes % 11.8 %; Mean Corpuscular HGB Conc 33.6 g/dL (30.0-36.0); Mean Corpuscular Hemoglobin 28.8 pg (28.0-34.0); Mean Corpuscular Volume 85.6 fl (81-99); Mean Platelet Volume 9.6 fL (7.4-10.4); Monocytes # 0.9 10^3/uL (0.2-0.9); Monocytes % 8.1 %; Neutrophils # 8.93 10^3/uL (1.8-7.7); Nucleated Red Blood Cells % 0 %; Platelet Count 231 10^3/cmm (130-400); Red Blood Count 3.75 10^6/uL (4.1-5.3); Red Cell Distribution Width 13.2 % (12.1-15.1); White Blood Count 11.3 10^3/uL (4.0-10.0)
--- NOTE | 2021-12-10 11:12 | ECG_ITS ---
[facility] Test Date: 2021-12-10 Pat Name: Hyun Bowers Department: Room: Gender: Female Health Education Specialist: : 1945 Requested By: Christopher Campa Order Number: [id number] Fátima MD: Filiberto Molina M.D. Measurements Intervals [place] Rate: 71 P: 50 KS: 197 QRS: -25 QRSD: 113 T: 30 QT: 397 QTc: 433 Interpretive Statements SINUS RHYTHM BORDERLINE LEFT AXIS DEVIATION [QRS AXIS < -20] MODERATE INTRAVENTRICULAR CONDUCTION DELAY [110+ ms QRS DURATION] Compared to ECG 12/10/2021 09:29:27 No significant changes Electronically Signed On 12-10-2021 23:42:25 CDT by Filiberto Molina M.D. [id number]
[2021-12-10 11:18] LABS: Alanine Aminotransferase 11 U/L (0-33); Albumin Level 3.9 g/dL (3.5-5.2); Alkaline Phosphatase 60 IU/L (35-105); Anion Gap 18.7 (5-19); Aspartate Amino Transferase 12 U/L (0-32); Blood Urea Nitrogen 32 mg/dL (8-23); Calcium 8.8 mg/dL (8.5-10.5); Carbon Dioxide 21 mmol/L (22-29); Chloride 99 mmol/L (98-107); Creatinine Clr Calc Pharmacy 44.8534; Globulin 3.4 g/dL (1.3-4.6); Glucose 187 mg/dL (65-115); NT Pro B Type Natriuretic Pept 4966 pg/mL (0-450); Osmolality Calculated 292 mOsm/kg (285-295); Potassium 3.7 mmol/L (3.5-5.1); Sodium 135 mmol/L (136-145); Thyroid Stimulating Hormone 0.82 uIU/mL (0.27-4.20); Total Bilirubin 0.4 mg/dL (0.15-1.2); Total Protein 7.3 g/dL (6.6-8.7)
[2021-12-10 12:20] LABS: Troponin(5th) Baseline 21 ng/L (0-10)
[2021-12-10] MEDS: morphine 4 mg/mL SDV 1 mL IVP (13:12)
--- NOTE | 2021-12-10 13:55 | P.HP_ITS ---
Providers/Chief Complaint Primary Care Provider: Chidi Anaya DO Chief Complaint: FALL; SYNCOPE History of Present Illness Hyun Bowers is a 76 year old female with past medical history of anxiety, depression, hypertension, hyperlipidemia, diabetes who presented to the hospital after a fall. She states she is had multiple falls in the last week and she also describes lightheadedness and dizziness when walking earlier today. There are no factors that cause her to fall. She does not feel nauseous before falling. She did hit her head and face after a fall and had pain in her face. She denies completely passing out. Has been eating okay. She said at her lower extremities are chronically swollen and she does not know why. She is not on a water pill. She is somewhat of a poor historian. Unable to tell me why she is on aspirin and Plavix and metoprolol. She was not able to tell me if she has any coronary artery disease or previous issues with her heart. She is on several blood pressure medications. She was unable to elaborate much regarding her history. She did endorse some shortness of breath occasionally but for the most part she is okay. She is wheelchair-bound. Patient denies smoking at this time. She is a former smoker however and quit long time ago. She did smoke 2 packs/day since she was a teenager. Denies any alcohol use. ED course: Blood pressure 126/55, pulse 50, on 4 L nasal cannula. BNP checked 4900, WBC 11.3, hemoglobin 10.8, sodium 135, creatinine 1.3. Iron studies done in May 2021 show iron deficiency anemia. Urinalysis positive for bacteria, WBC, leukocyte esterase. Chest abdomen CT pelvis done which shows no acute traumatic findings, it does show sludge and small stones in gallbladder. 5 mm renal cyst too small to further characterize. CT head and facial CT negative for any abnormalities. Medications/Allergies Home Medications Medication Instructions Recorded Confirmed Last Taken Type artifi.tears(hypromellose)(PF) 0.3 1 drop OPHTHALMIC (EYE) BEDTIME PRN 07/10/19 12/10/21 Unknown History % eye drops azelastine 205.5 mcg (0.15 %) 1 spray INTRANASAL BID PRN 07/10/19 12/10/21 Unknown History nasal spray bismuth subsalicylate 262 mg/15 mL 524 mg PO DAILY PRN ml 07/10/19 12/10/21 Unknown History oral suspension (Pepto-Bismol) clopidogrel 75 mg tablet 75 mg PO DAILY 07/10/19 12/10/21 12/10/21 History fluticasone propionate 50 2 spray INTRANASAL DAILY 07/10/19 12/10/21 12/10/21 History mcg/actuation nasal spray,suspension (Flonase Allergy Relief) lovastatin 40 mg tablet 40 mg PO DAILY 07/10/19 12/10/21 12/10/21 History magnesium hydroxide 400 mg/5 mL 15 ml PO DAILY PRN 07/10/19 12/10/21 Unknown History oral suspension (Milk of Magnesia) pantoprazole 20 mg tablet,delayed 20 mg PO DAILY 07/10/19 12/10/21 12/10/21 History release (Protonix) sitagliptin 100 mg tablet (Januvia) 100 mg PO DAILY 07/10/19 12/10/21 12/10/21 History tamsulosin 0.4 mg capsule (Flomax) 0.4 mg PO DAILY 07/10/19 12/10/21 12/10/21 History aspirin 81 mg tablet,delayed 81 mg PO DAILY 07/13/19 12/10/21 12/10/21 History release (Adult Low Dose Aspirin) metformin 500 mg tablet,extended 1,000 mg PO BID 07/13/19 12/10/21 12/10/21 History release 24 hr metoprolol succinate 100 mg 100 mg PO DAILY 07/13/19 12/10/21 12/10/21 History tablet,extended release 24 hr acetaminophen 500 mg tablet 500 mg PO Q6H PRN 11/01/19 12/10/21 Unknown History (Tylenol Extra Strength) hydralazine 100 mg tablet 100 mg PO TID 11/01/19 12/10/21 12/10/21 History promethazine-DM 6.25 mg-15 mg/5 mL 5 ml PO Q6H PRN 11/01/19 12/10/21 Unknown History oral syrup diazepam 5 mg tablet 5 mg PO Q8H PRN tab 02/28/21 12/10/21 Unknown History amlodipine 10 mg tablet 10 mg PO DAILY 05/18/21 12/10/21 12/10/21 History Diabetic shoes with 3 sets of #1 ea 07/18/21 12/10/21 Unknown Rx inserts walker #1 ea 07/18/21 12/10/21 Unknown Rx alendronate 70 mg tablet 70 mg PO .Weekly tab 10/16/21 12/10/21 12/08/21 History buspirone 10 mg tablet 10 mg PO BID #60 tab 10/16/21 12/10/21 12/10/21 Rx ferrous sulfate 325 mg (65 mg 325 mg PO DAILY 10/16/21 12/10/21 12/10/21 History iron) tablet fluoxetine 20 mg capsule (Prozac) 20 mg PO QAM #30 cap 10/16/21 12/10/21 12/10/21 Rx propylene glycol 0.6 % eye drops 1 drp OPHTHALMIC (EYE) QID 10/16/21 12/10/21 12/10/21 History (Systane Complete) trazodone 50 mg tablet See Rx Instructions PO .QHS PRN 10/16/21 12/10/21 Unknown Rx #30 tab Cam Boot to the left #1 ea 10/18/21 12/10/21 Unknown Rx acetaminophen 300 mg-codeine 30 mg 1 tab PO Q8H PRN 12/07/21 12/10/21 12/10/21 07:34 History tablet chlorthalidone 25 mg tablet 25 mg PO DAILY 12/07/21 12/10/21 12/10/21 History lutein 25 mg-zeaxanthin 5 mg 1 cap PO DAILY 12/07/21 12/10/21 12/10/21 History capsule (Ocuvite Lutein) meclizine 25 mg tablet 25 mg PO Q8H PRN 12/10/21 12/10/21 Unknown History Allergies Allergy/AdvReac Type Severity Reaction Status Date / Time No Known Allergies Allergy Verified 12/10/21 11:09 PFSH Acute PFSH: Medical History Anxiety disorder, unspecified Major depressive disorder, recurrent, in full remission Psychiatric care Social History Smoking and tobacco status: never smoked Quit status (tobacco): has quit using tobacco Year quit tobacco: 1196 Former quit date comment: 2 PPD since age 16 Second hand smoke exposure: No Vitals/I&O/Wt Last Vital Signs Pulse 68 07/10/22 13:00 Resp 16 12/10/21 09:08 BP 139/64 12/10/21 13:00 Pulse Ox 94 12/10/21 13:00 Weight last 48 hrs Weight 107.048 kg Physical Exam Narrative: General: Alert oriented x3, patient seen sitting up in bed appearing comfortable at this time. No acute distress, no conversational dyspnea. HEENT: Normocephalic, atraumatic, EOMI, breathing comfortably on 4 L nasal cannula. Cardio: Bradycardic, normal S1-S2, no murmurs, Respiratory: Clear to auscultation bilaterally with no wheezes or rhonchi. GI: Abdomen soft, nontender, nondistended, bowel sounds + Behavior: Appropriate and cooperative Extremities: no edema, no cyanosis Data : 12/11/21 05:25 12/11/21 05:25 A&P Assessment and plan (1) Fall: Status: Acute Qualifiers: Encounter type: initial encounter Qualified Code(s): W19.XXXA - Unspecified fall, initial encounter (2) Recurrent syncope: Status: Acute (3) At risk for falls: Status: Acute (4) Iron deficiency anemia: Status: Acute (5) Anxiety disorder, unspecified: Status: Chronic (6) Major depressive disorder, recurrent, in full remission: Status: Chronic Plan #Fall, near syncope, possibly secondary to polypharmacy versus cardiac cause #Acute kidney injury #Mild hyponatremia #Hypertension #Hyperlipidemia #Diabetes mellitus, [id number] #Depression #Anxiety ? BNP 4900. On 4 L nasal cannula at this time. ? Continue aspirin, Plavix, pantoprazole, lovastatin - Tamsulosin, trazodone, magnesium, chlorthalidone -Hold metoprolol at this time patient is bradycardic. Hold hydralazine 100 3 times daily at this time. Blood pressure 104/51. I may dose reduce depending on how her blood pressure does. -Check echo, troponins 21, 21.82, delta Trope negative. -May require event monitor at discharge ? Check orthostatic vitals -Check carotid Dopplers -Continue on moderate intensity sliding scale. Hold metformin, sitagliptin. -Creatinine 1.3 today. Possibly cardiorenal. We will put on Lasix 40 IV daily and diurese patient. ? Mild hyponatremia may be due to hypervolemia. Continue diuresis Full code DVT prophylaxis: Heparin subcu Attestations Medical Necessity Statement*: Requires greater than 2 midnight stay for management and work-up for fall, near syncope, cardiac work-up. Coding Level of Care Code Acute Automotive Leasing Sales Representative for Chg Fwd Diagnoses Fall W19.XXXA Encounter type: initial encounter Recurrent syncope R55 At risk for falls Z91.81 Iron deficiency anemia D50.9 Anxiety disorder, unspecified F41.9 Major depressive disorder, recurrent, in full remission F33.42
[2021-12-10 14:00] LABS: Troponin 5 2HR 21.82 ng/L (0-10); Troponin 5 2HR Delta 0.82 ABS# (0-10)
[2021-12-10 14:31] LABS: Add Urine Culture? Yes; Add Urine Microscopic? YES; Bacteria Urine 2+ /hpf; Bilirubin Urine 1+ (Negative); Blood Urine Neg (Negative); Glucose Urine UA Norm (Normal); Ketones Urine Negative (Negative); Leukocyte Esterase Urine 1+ (Negative); Nitrate Urine Negative (Negative); Protein Urine Neg (Negative); Urine Appearance Clear (CLEAR); Urine Color Yellow (Yellow); Urobilinogen Urine Norm (Negative); pH Urine 5 (5-7)
[2021-12-10 17:01] LABS: Urine Random Sodium 38 mmol/L
[2021-12-10 17:03] LABS: Troponin 5 6HR 20.79 ng/L (0-10)
[2021-12-10 17:04] LABS: Estmated Average Glucose 143; Hemoglobin A1C 6.6 % (4.0-6.0)
[2021-12-10] MEDS: heparin 5,000 unit/mL INJ 1 mL 5000 UNIT SUBCUT (17:11)
[2021-12-10] MEDS: FUROsemide 10 mg/mL SDV 4mL 40 MG IVP (17:11)
[2021-12-10 17:15] LABS: Troponin 5 6HR Delta -0.21 ng/L (0-12)
[2021-12-10 17:20] LABS: Glucose Point of Care 101 mg/dL (70-110)
[2021-12-10 17:40] LABS: Procalcitonin 0.05 ng/mL (0-0.5)
[2021-12-10 17:42] LABS: Chol HDL Ratio 3.62 mg/dL (0.0-4.40); Cholesterol 123 mg/dL (0-200); HDL Cholesterol 34 mg/dL (60-100); Iron 59 ug/dL (37-145); LDL Cholesterol Calculated 42 mg/dL (50-129); LDL HDL Ratio 1.24 RATIO (0.00-3.22); Percent Saturation 21.3 % (20-50); Thyroid Stimulating Hormone 1.28 uIU/mL (0.27-4.20); Total Iron Binding Capacity 276 mcg/dl; Triglycerides 237 mg/dL (0-150); Unsaturated Iron Binding 217 ug/dL (112-347)
[2021-12-10] MEDS: BuSPIRONE 10 mg Tablet PO (17:58)
[2021-12-10 20:47] LABS: Glucose Point of Care 123 mg/dL (70-110)
--- NOTE | 2021-12-10 21:18 | PC.NURSE ---
PUPILS Pt is almost completely blind. Pupils are not round but oval and sluggish reaction. Do appear equal in size
[2021-12-11] VITALS (9 sets, daily range): BP systolic 97–138; BP diastolic 50–69; PULSE 63–87; RESP 12–19; TEMP 36.7–37; O2SAT 90–98
[2021-12-11] MEDS: trazodone 50 mg Tablet PO
[2021-12-11] MEDS: heparin 5,000 unit/mL INJ 1 mL 5000 UNIT SUBCUT ×3 (00:02→15:41)
[2021-12-11] MEDS: fluoxetine 20 mg Capsule PO (05:32)
[2021-12-11 05:42] LABS: Basophils % 0.4 %; Eosinophils % 0.4 %; Hematocrit 29.7 % (37.0-47.0); Hemoglobin 9.9 g/dL (11.5-15.3); Lymphocytes # 1.1 10^3/uL (0.8-4.8); Lymphocytes % 20.3 %; Mean Corpuscular HGB Conc 33.3 g/dL (30.0-36.0); Mean Corpuscular Hemoglobin 28.7 pg (28.0-34.0); Mean Corpuscular Volume 86.1 fl (81-99); Mean Platelet Volume 9.5 fL (7.4-10.4); Monocytes # 0.4 10^3/uL (0.2-0.9); Monocytes % 7.9 %; Neutrophils # 3.85 10^3/uL (1.8-7.7); Neutrophils % 70.5 %; Nucleated Red Blood Cells % 0 %; Platelet Count 183 10^3/cmm (130-400); Red Blood Count 3.45 10^6/uL (4.1-5.3); Red Cell Distribution Width 13.2 % (12.1-15.1); White Blood Count 5.5 10^3/uL (4.0-10.0)
[2021-12-11 06:07] LABS: Alanine Aminotransferase 9 U/L (0-33); Albumin Level 3.7 g/dL (3.5-5.2); Alkaline Phosphatase 55 IU/L (35-105); Anion Gap 14.6 (5-19); Aspartate Amino Transferase 11 U/L (0-32); Blood Urea Nitrogen 39 mg/dL (8-23); Calcium 8.6 mg/dL (8.5-10.5); Carbon Dioxide 26 mmol/L (22-29); Chloride 100 mmol/L (98-107); Globulin 2.9 g/dL (1.3-4.6); Glucose 116 mg/dL (65-115); Magnesium 1.2 mg/dL (1.7-2.3); Osmolality Calculated 294 mOsm/kg (285-295); Phosphorus 3.9 mg/dL (2.5-4.5); Potassium 3.6 mmol/L (3.5-5.1); Sodium 137 mmol/L (136-145); Total Bilirubin 0.4 mg/dL (0.15-1.2); Total Protein 6.6 g/dL (6.6-8.7)
[2021-12-11 06:14] LABS: Glucose Point of Care 119 mg/dL (70-110)
[2021-12-11] MEDS: aspirin 81 mg EC Tablet PO (08:36)
[2021-12-11] MEDS: clopidogrel 75 mg Tablet PO (08:37)
[2021-12-11] MEDS: pantoprazole DR 40 mg Tablet PO (08:37)
[2021-12-11] MEDS: ferrous sulfate EC 325 mg Tablet PO (08:37)
[2021-12-11] MEDS: BuSPIRONE 10 mg Tablet PO ×2 (08:37→18:19)
[2021-12-11] MEDS: tamsulosin 0.4 mg Capsule PO (08:37)
[2021-12-11] MEDS: atorvastatin 40 mg Tablet 20 MG PO (08:37)
[2021-12-11] MEDS: amlodipine 10 mg Tablet PO (08:37)
[2021-12-11] MEDS: acetaminophen 325 mg Tablet 650 MG PO ×2 (10:43)
[2021-12-11 11:24] LABS: Glucose Point of Care 195 mg/dL (70-110)
[2021-12-11] MEDS: insulin lispro 100 unit/1 mL SUBCUT (12:33)
[2021-12-11] MEDS: acetaminophen-codeine 300-30mg Tablet 1 TAB PO (14:31)
[2021-12-11] MEDS: potassium chloride ER 20 mEq Tablet 40 MEQ PO (15:40)
[2021-12-11] MEDS: magnesium sulfate premix 4 GM/100 ML PREMIX IV (15:40)
[2021-12-11] MEDS: FUROsemide 10 mg/mL SDV 4mL 40 MG IVP (15:41)
--- NOTE | 2021-12-11 16:02 | USR_ITS ---
PROCEDURE INFORMATION: Exam: US Duplex Bilateral Extracranial Arteries, Carotid Arteries Exam date and time: 12/11/2021 3:07 AM Age: 76 years old Clinical indication: Alteration of consciousness; Somnolence (drowsiness); Additional info: Diziness, lightheadedness TECHNIQUE: Imaging protocol: Real-time Duplex ultrasound scan of the bilateral carotid and vertebral arteries combining cody scale, color Doppler and spectral waveform analysis. Bilateral exam. Exam focused on the carotid arteries. COMPARISON: [facility] [place] [id number] 03/13/2018 8:58 AM FINDINGS: Right common carotid artery: Unremarkable. No occlusion or stenosis. Waveforms are biphasic. PSV 123 cm/s within the proximal common carotid artery. Right internal carotid artery: Mild atherosclerotic plaque formation. No occlusion or stenosis. Waveforms are biphasic. PSV PSV 134 cm/s within the mid internal carotid artery. Right ICA/CCA ratio: Within normal limits, 1.09. Right external carotid artery: No stenosis in the origin. Right vertebral artery: Unremarkable. Antegrade flow. Left common carotid artery: Unremarkable. No occlusion or stenosis. Waveforms are lipase and. PSV 64 cm/s within the proximal common carotid artery. Left internal carotid artery: Atherosclerotic plaque formation. No occlusion or stenosis. Waveforms are monophasic. PSV 155 cm/s within the mid internal carotid artery. Left ICA/CCA ratio: Elevated ratio , 2.43. Left external carotid artery: No stenosis in the origin. Left vertebral artery: Unremarkable. Antegrade flow. US/CV carotid duplex BI* [id number] IMPRESSION: 1. Mild less than 50% stenosis within the right carotid bulb proximal internal carotid artery 2. Moderate 50-75% stenosis within the left carotid bulb and proximal internal carotid artery. REFERENCES: SRU CRITERIA. The degree of internal carotid artery stenosis is based on criteria defined by the Society of Radiologists in Ultrasound (SRU). Normal is no stenosis. Mild is less than 50% stenosis. Moderate is 50-69% stenosis. Severe is greater than 69% stenosis to near occlusion. Near occlusion is a markedly narrowed lumen. Total occlusion is no detectable patent lumen.
--- NOTE | 2021-12-11 16:02 | USCV_ITS ---
Hyun Bowers Age: 76 Gender: F : 1945 Exam Date: 12/11/2021 09:21 Ordering Phys: Crys Perez MD Technologist: Bg De Leon Exam Location: [facility] [place] Indication: congestive heart failure BP: 145 / 83 HR: 70 Rhythm: Sinus Technical Quality: Adequate MEASUREMENTS (Male / Female) Normal Values 2D ECHO LV Diastolic Diameter PLAX 3.2 cm 4.2 - 5.9 / 3.9 - 5.3 cm LV Systolic Diameter PLAX 2.6 cm IVS Diastolic Thickness 1.2 cm 0.6 - 1.0 / 0.6 - 0.9 cm IVS Systolic Thickness 1.5 cm LVPW Diastolic Thickness 1.3 cm 0.6 - 1.0 / 0.6 - 0.9 cm LVPW Systolic Thickness 1.5 cm LVOT Diameter 2.1 cm LV Ejection Fraction 2D Teich 35.8 % LV Ejection Fraction MOD 2C 64.1 % LV Ejection Fraction 2C AL 64.5 % LA Diameter 3.3 cm Aorta at Sinotubular Diameter 2.8 cm IVC Diameter 1.8 cm M-MODE Aortic Annulus Diameter 3.7 cm LA Ao Ratio MM 0.9 MV E Point Septal Separation 1.1 cm DOPPLER AV Peak Velocity 233.0 cm/s LVOT Peak Velocity 101.0 cm/s AV Area Cont Eq vti 1.4 cm squared AV Area Cont Eq pk 1.5 cm squared MV Area PHT 5.0 cm squared Mitral E to A Ratio 0.7 MV E' Velocity 45.0 cm/s Mitral E to MV E' Ratio 12.4 Mitral E to LV E' Lateral Ratio 11.3 Mitral E to LV E' Septal Ratio 13.6 TR Peak Velocity 217.3 cm/s TR Peak Gradient 18.9 mmHg TV Peak E Velocity 82.0 cm/s Right Atrial Pressure 3.0 mmHg Pulmonary Artery Systolic Pressu 21.9 mmHg PV Peak Velocity 110.0 cm/s FINDINGS Left Ventricle Normal left ventricular size. LV systolic function is normal with EF of 55-60%. No regional wall motion abnormalities. Grade 1 diastolic dysfunction Right Ventricle The right ventricle is normal in size and function. Right Atrium The right atrium is normal in size. Left Atrium The left atrium is normal in size. Mitral Valve Mitral annular calcification without significant stenosis . There is no mitral regurgitation. Aortic Valve Aortic valve is thickened and calcified. Mild aortic stenosis is seen with aortic valve area of 1.33cm2 and mean gradient across the valve of 11.5mmHg. There is no aortic regurgitation. Tricuspid Valve Structurally normal tricuspid valve without significant stenosis. Trace tricuspid regurgitation. Insufficient TR jet to calculate RVSP Pulmonic Valve Not well visualized Pericardium Normal pericardium without effusion. Aorta Normal ascending aorta dimension. IVC CONCLUSIONS LV systolic function is normal with EF of 55-60%. Grade 1 diastolic dysfunction Mitral annular calcification Aortic valve is thickened and calcified. Mild aortic stenosis is seen with aortic valve area of 1.33cm2 and mean gradient across the valve of 11.5mmHg. Trace tricuspid regurgitation Compared to prior echocardiogram from 02/05/2018, no significant changes are seen Filiberto Molina MD (Electronically Signed) Final Date: 11 December 2021 17:57 S
--- NOTE | 2021-12-11 16:11 | PM.PN ---
Subjective Subjective: Seen this AM. no acute events overnight Vitals/I&O/Wt Last Vital Signs Temp 98.2 F 12/11/21 11:35 Pulse 78 12/11/21 13:46 Resp 17 12/11/21 11:35 BP 126/67 12/11/21 11:35 Pulse Ox 93 12/11/21 13:46 12/11/21 12/11/21 12/11/21 06:59 14:59 22:59 Intake Total 200 / 320 240 / 240 Output Total 850 / 850 Balance -650 / -530 240 / 240 Weight last 48 hrs Weight 107.048 kg Physical Exam Narrative: General: Alert oriented x3, patient seen sitting up in bed appearing comfortable at this time.? HEENT: Normocephalic, atraumatic, EOMI, breathing comfortably on room air Cardio: Bradycardic, normal S1-S2, no murmurs, Respiratory: Clear to auscultation bilaterally with no wheezes or rhonchi. GI: Abdomen soft, nontender, nondistended, bowel sounds + Behavior: Appropriate and cooperative Extremities: no edema, no cyanosis Urinary Catheter Management: Burnette: Cath Placed During This Visit: yes Reason for Continuing Indwelling Catheter: Acute Urinary Retention or Obstruction Urinary Catheter Date of Insertion: 12/10/21 Urinary Catheter Time of Insertion: 05:20 Data : 12/11/21 05:25 12/11/21 05:25 Micro: Microbiology 12/10/21 12:48 Urine Culture - Final Urine,Clean Catch 12/10/21 17:09 Blood Culture - Preliminary Blood SPECIMEN COLLECTED 12/10/21 17:09 Blood Culture - Preliminary Blood SPECIMEN COLLECTED A&P Assessment and plan (1) Fall: Status: Acute Qualifiers: Encounter type: initial encounter Qualified Code(s): W19.XXXA - Unspecified fall, initial encounter (2) Pain in right hip: Status: Acute (3) Low back pain: Status: Acute Qualifiers: Back pain laterality: midline Chronicity: acute Sciatica presence: without sciatica Qualified Code(s): M54.50 - Low back pain, unspecified (4) Recurrent syncope: Status: Acute (5) At risk for falls: Status: Acute (6) Iron deficiency anemia: Status: Acute (7) Anxiety disorder, unspecified: Status: Chronic (8) Major depressive disorder, recurrent, in full remission: Status: Chronic Plan #Fall, near syncope, possibly secondary to polypharmacy versus cardiac cause #Acute kidney injury #Mild hyponatremia #Hypertension #Hyperlipidemia #Diabetes mellitus, [id number] #Depression #Anxiety #Fluid overloaded, CHF? Unsure if new or old dx. We dont have records. ? BNP 4900.? On 4 L nasal cannula at admission. Now room air. GOt lasix 40 iv x1. Will cut down to lasix 20 daily. She appears better today. LE edema improved as well. ? Continue aspirin, Plavix, pantoprazole, lovastatin - Patients BP has been normal without most of her BP meds. I have a suscpision her reccurant falls are 2/2 to orthostatic hypotension due to low bp 2/2 to polypharmacy. Will continue to adjust medications. - Echo pending. - Unsure if CHF new or old dx. Will r/o. - Switch to lasix 20 daily for now - Jacek present. Cr bumped to 1.5 today. -Hold metoprolol at this time patient is bradycardic.? Hold hydralazine 100 3 times daily at this time.? -Check echo, troponins 21, 21.82, delta Trope negative. -May require event monitor at discharge ? Check orthostatic vitals - pending -Check carotid Dopplers - 50-75% disease in right carotid. Will give outpatient vascular eval at [place]. -Continue on moderate intensity sliding scale.? Hold metformin, sitagliptin. -Creatinine 1.5 today.? continue diuresis. ? Mild hyponatremia may be due to hypervolemia.? Continue diuresis. Na improved with diureses - Monitor in hospital today. Adjust medications, review all results. Potential DC in AM Full code DVT prophylaxis: Heparin subcu Attestations Medical Necessity Statement*: will need medication adjustment and monitoring dc potentially in am. will need event monitor at [place] Coding Level of Care Code Acute Office Support Associate for Chg Fwd Diagnoses Fall W19.XXXA Encounter type: initial encounter Pain in right hip M25.551 Low back pain M54.50 Back pain laterality: midline Chronicity: acute Sciatica presence: without sciatica Recurrent syncope R55 At risk for falls Z91.81 Iron deficiency anemia D50.9 Anxiety disorder, unspecified F41.9 Major depressive disorder, recurrent, in full remission F33.42
[2021-12-11 16:46] LABS: Glucose Point of Care 132 mg/dL (70-110)
--- NOTE | 2021-12-11 20:10 | PC.NURSE ---
Shift Note Frequent safety and comfort rounds continue. Orders and/or nursing care completed as indicated. Patient monitored for response to intervention and treatment(s). Education provided includes PT treatment and new meds. Patient and/or unit support representative verbalizes understanding. Will continue to monitor.
[2021-12-12] VITALS (10 sets, daily range): BP systolic 92–148; BP diastolic 58–83; PULSE 69–108; RESP 16–18; TEMP 36.6–37.2; O2SAT 93–99
[2021-12-12] MEDS: insulin lispro 100 unit/1 mL SUBCUT ×3 (00:29→21:10)
[2021-12-12] MEDS: heparin 5,000 unit/mL INJ 1 mL 5000 UNIT SUBCUT ×3 (00:30→17:23)
[2021-12-12 04:24] LABS: Blood Urea Nitrogen 42 mg/dL (8-23); Calcium 8.8 mg/dL (8.5-10.5); Carbon Dioxide 25 mmol/L (22-29); Chloride 100 mmol/L (98-107); Glucose 194 mg/dL (65-115); Magnesium 2.4 mg/dL (1.7-2.3); Osmolality Calculated 296 mOsm/kg (285-295); Sodium 135 mmol/L (136-145)
[2021-12-12] MEDS: fluoxetine 20 mg Capsule PO (06:36)
[2021-12-12] MEDS: aspirin 81 mg EC Tablet PO (07:53)
[2021-12-12] MEDS: pantoprazole DR 40 mg Tablet PO (07:54)
[2021-12-12] MEDS: ferrous sulfate EC 325 mg Tablet PO (07:54)
[2021-12-12] MEDS: atorvastatin 40 mg Tablet 20 MG PO ×2 (07:54→10:13)
[2021-12-12] MEDS: BuSPIRONE 10 mg Tablet PO ×2 (07:55→17:24)
[2021-12-12] MEDS: fluticasone nasal spray 16gm Btl 2 SPRAY INTRANASAL (07:55)
[2021-12-12] MEDS: tamsulosin 0.4 mg Capsule PO (07:55)
[2021-12-12] MEDS: clopidogrel 75 mg Tablet PO (07:55)
[2021-12-12 08:04] LABS: Glucose Point of Care 166 mg/dL (70-110)
[2021-12-12] MEDS: acetaminophen 325 mg Tablet 650 MG PO (10:12)
[2021-12-12] MEDS: amlodipine 10 mg Tablet PO (10:12)
[2021-12-12] MEDS: sodium chloride 0.9% 1,000 ML 75 ML IV (10:13)
[2021-12-12 10:43] LABS: Vitamin B12 280 pg/mL (232-1245)
[2021-12-12 11:05] LABS: Glucose Point of Care 298 mg/dL (70-110)
--- NOTE | 2021-12-12 13:21 | PM.PN ---
Subjective Subjective: Seen this morning. Patient is creatinine bumped up to 1.7. Urine output overnight 850 cc. Patient was able to get up with physical therapy yesterday. She does complain of a mild back pain which is chronic for her.. She was given Tylenol recently. Vitals/I&O/Wt Last Vital Signs Temp 97.9 F 12/12/21 11:34 Pulse 83 12/12/21 11:34 Resp 16 12/12/21 11:34 BP 137/83 12/12/21 11:34 Pulse Ox 93 12/12/21 11:34 12/11/21 12/12/21 12/12/21 22:59 06:59 14:59 Intake Total 100 / 340 120 / 120 Output Total 850 / 850 850 / 1700 Balance -750 / -510 -850 / -1360 120 / 120 Physical Exam Narrative: General: Alert oriented x3, patient seen sitting up in chair appearing comfortable at this time HEENT: Normocephalic, atraumatic, EOMI, breathing comfortably on room air Cardio: Regular rate rhythm., normal S1-S2, no murmurs, Respiratory: Clear to auscultation bilaterally with no wheezes or rhonchi. GI: Abdomen soft, nontender, nondistended, bowel sounds + Behavior: Appropriate and cooperative Extremities: no edema, no cyanosis Urinary Catheter Management: Burnette: Cath Placed During This Visit: yes Reason for Continuing Indwelling Catheter: Other Urinary Catheter Date of Insertion: 12/10/21 Urinary Catheter Time of Insertion: 05:20 Data : 12/11/21 05:25 12/12/21 03:25 Micro: Microbiology 12/10/21 17:09 Blood Culture - Preliminary Blood NEGATIVE TO DATE 12/10/21 17:09 Blood Culture - Preliminary Blood NEGATIVE TO DATE 12/10/21 12:48 Urine Culture - Final Urine,Clean Catch A&P Assessment and plan (1) Fall: Status: Acute Qualifiers: Encounter type: initial encounter Qualified Code(s): W19.XXXA - Unspecified fall, initial encounter (2) Pain in right hip: Status: Acute (3) Low back pain: Status: Acute Qualifiers: Back pain laterality: midline Chronicity: acute Sciatica presence: without sciatica Qualified Code(s): M54.50 - Low back pain, unspecified (4) Recurrent syncope: Status: Acute (5) At risk for falls: Status: Acute (6) Iron deficiency anemia: Status: Acute (7) Anxiety disorder, unspecified: Status: Chronic (8) Major depressive disorder, recurrent, in full remission: Status: Chronic Plan #Fall, near syncope, possibly secondary to polypharmacy versus cardiac cause #Acute kidney injury #Mild hyponatremia #Hypertension #Hyperlipidemia #Diabetes mellitus, [id number] #Depression #Anxiety #Acute on chronic congestive heart failure, diastolic dysfunction grade 1 ? BNP 4900.? On 4 L nasal cannula at admission. She was able to transition to room she did get diuresed with Lasix 40 IV for 3 doses and then was switched to Lasix 20 IV. Today I have stopped her Lasix as creatinine has increased to 1.7. She may build to be discharged on Lasix 20 orally daily versus as needed. ? Echo reviewed. Grade 1 diastolic dysfunction present. ? Orthostatic vitals are negative at this time. I believe patient's fall near syncopal episodes have been secondary to polypharmacy. I have adjusted most of her medications. Patient was also bradycardic on admission. Metoprolol was stopped. ? We will start gentle hydration today normal saline 75 cc/h. She may have been over diuresed. ? Continue aspirin, Plavix, pantoprazole, lovastatin, amlodipine 10 mg daily, Flomax 0.4 daily. -I have stopped hydralazine 100 3 times daily, metoprolol succinate 100 daily. -Check carotid Dopplers - 50-75% disease in right carotid. [place] give outpatient vascular eval [place]. -Continue on moderate intensity sliding scale.? Hold metformin, sitagliptin. -Creatinine 1.7 today.? She may have been over diuresed. I will start gentle hydration normal saline 75 cc daily. ? Mild hyponatremia may be due to hypervolemia.? It improved after diuresis. -Keep in hospital today for NISHI. Once kidney function improves she may well to be discharged back to her assisted Facility. -Cardiac event not ruled out. Telemetry does not show any evidence of sinus pauses so far. May consider event monitor at discharge. Full code DVT prophylaxis: Heparin subcu Attestations Medical Necessity Statement*: Will need to stay in the hospital tonight for management of NISHI. She may be able to be discharged tomorrow back to assisted living facility. Coding Level of Care Code Acute Advertising Director for Chg Fwd Diagnoses Fall W19.XXXA Encounter type: initial encounter Pain in right hip M25.551 Low back pain M54.50 Back pain laterality: midline Chronicity: acute Sciatica presence: without sciatica Recurrent syncope R55 At risk for falls Z91.81 Iron deficiency anemia D50.9 Anxiety disorder, unspecified F41.9 Major depressive disorder, recurrent, in full remission F33.42
[2021-12-12 17:00] LABS: Glucose Point of Care 143 mg/dL (70-110)
[2021-12-12 20:42] LABS: Glucose Point of Care 318 mg/dL (70-110)
[2021-12-13] VITALS: BP 121/71; PULSE 80; RESP 17; TEMP 36.8; O2SAT 91
[2021-12-13] MEDS: heparin 5,000 unit/mL INJ 1 mL 5000 UNIT SUBCUT ×3 (01:33→17:09)
[2021-12-13 04:00] VITALS: BP 135/74; PULSE 81; RESP 17; TEMP 36.8; O2SAT 99
[2021-12-13 05:39] LABS: Blood Urea Nitrogen 41 mg/dL (8-23); Calcium 8.5 mg/dL (8.5-10.5); Carbon Dioxide 19 mmol/L (22-29); Chloride 102 mmol/L (98-107); Glucose 175 mg/dL (65-115); Osmolality Calculated 292 mOsm/kg (285-295); Sodium 134 mmol/L (136-145)
[2021-12-13 05:41] LABS: Anion Gap 16.9 (5-19); Potassium 3.9 mmol/L (3.5-5.1)
[2021-12-13 06:00] VITALS: PULSE 75
[2021-12-13 06:10] LABS: Glucose Point of Care 190 mg/dL (70-110)
[2021-12-13] MEDS: fluoxetine 20 mg Capsule PO (06:42)
[2021-12-13 08:00] VITALS: BP 143/63; PULSE 82; RESP 16; TEMP 36.9; O2SAT 95
[2021-12-13] MEDS: insulin lispro 100 unit/1 mL SUBCUT ×3 (08:53→18:19)
[2021-12-13] MEDS: BuSPIRONE 10 mg Tablet PO ×2 (08:54→18:19)
[2021-12-13] MEDS: tamsulosin 0.4 mg Capsule PO (08:54)
[2021-12-13] MEDS: aspirin 81 mg EC Tablet PO (08:54)
[2021-12-13] MEDS: ferrous sulfate EC 325 mg Tablet PO (08:55)
[2021-12-13] MEDS: clopidogrel 75 mg Tablet PO (08:55)
[2021-12-13] MEDS: pantoprazole DR 40 mg Tablet PO (08:55)
[2021-12-13] MEDS: amlodipine 10 mg Tablet PO (08:55)
--- NOTE | 2021-12-13 09:32 | PC.SOCIAL ---
IMM Update Pg. 2 of IMM Updated and reviewed with patient, who verbalized understanding. Copy provided.
[2021-12-13] MEDS: sodium chloride 0.9% 1,000 ML 75 ML IV (10:47)
[2021-12-13] MEDS: acetaminophen 325 mg Tablet 650 MG PO (10:48)
[2021-12-13 11:53] LABS: Glucose Point of Care 262 mg/dL (70-110)
[2021-12-13 11:54] LABS: Glucose Point of Care 221 mg/dL (70-110)
[2021-12-13 12:00] VITALS: BP 134/74; PULSE 86; RESP 16; TEMP 36.4; O2SAT 98
[2021-12-13 16:00] VITALS: BP 167/73; PULSE 92; RESP 16; TEMP 36.7; O2SAT 99
--- NOTE | 2021-12-13 17:08 | P.DS_ITS ---
Discharge Providers Date of Admission: 12/10/21 13:55 Date of Discharge: December 13, 2021 Attending Provider at Admission: Crys Perez MD Attending Provider at Discharge: Jennifer Perkins MD Primary Care Provider: Chidi Anaya DO Diagnoses at Discharge Discharge Diagnosis (1) Fall: Status: Resolved Qualifiers: Encounter type: initial encounter Qualified Code(s): W19.XXXA - Unspecified fall, initial encounter (2) Pain in right hip: Status: Resolved (3) Low back pain: Status: Resolved Qualifiers: Back pain laterality: midline Chronicity: acute Sciatica presence: without sciatica Qualified Code(s): M54.50 - Low back pain, unspecified (4) Recurrent syncope: Status: Acute (5) Iron deficiency anemia: Status: Acute Qualifiers: Iron deficiency anemia type: chronic blood loss Qualified Code(s): D50.0 - Iron deficiency anemia secondary to blood loss (chronic) (6) Acute renal injury due to hypovolemia: Status: Acute (7) Chronic kidney disease, stage 3a: Status: Chronic (8) Anxiety disorder, unspecified: Status: Chronic (9) Major depressive disorder, recurrent, in full remission: Status: Chronic (10) Hypertension: Status: Chronic Qualifiers: Hypertension type: primary hypertension Qualified Code(s): I10 - Essential (primary) hypertension (11) Diabetes: Status: Chronic Qualifiers: Diabetes mellitus type: type 2 Diabetes mellitus 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 insulin use: without 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 use Diabetes mellitus complication status: with neurologic complications Diabetes mellitus complication detail: with polyneuropathy Qualified Code(s): E11.42 - Type 2 diabetes mellitus with diabetic polyneuropathy (12) Diastolic CHF: Status: Acute Qualifiers: Heart failure chronicity: acute on chronic Qualified Code(s): I50.33 - Acute on chronic diastolic (congestive) heart failure (13) Blind: Status: Chronic (14) At risk for falls: Status: Chronic Reason for Visit Reason for Visit: FALL; SYNCOPE Brief History: From H&P: Hyun Helton is a 76 year old female with past medical history of anxiety, depression, hypertension, hyperlipidemia, diabetes who presented to the hospital after a fall.? She states she is had multiple falls in the last week and she also describes lightheadedness and dizziness when walking earlier today.? There are no factors that cause her to fall.? She does not feel nauseous before falling.? She did hit her head and face after a fall and had pain in her face.? She denies completely passing out.? Has been eating okay.? She said at her lower extremities are chronically swollen and she does not know why.? She is not on a water pill.? She is somewhat of a poor historian.? Unable to tell me why she is on aspirin and Plavix and metoprolol.? She was not able to tell me if she has any coronary artery disease or previous issues with her heart.? She is on several blood pressure medications.? She was unable to elaborate much regarding her history.? She did endorse some shortness of breath occasionally but for the most part she is okay.? She is wheelchair-bound. Patient denies smoking at this time.? She is a former smoker however and quit long time ago.? She did smoke 2 packs/day since she was a teenager.? Denies any alcohol use. ED course: Blood pressure 126/55, pulse 50, on 4 L nasal cannula.? BNP checked 4900, WBC 11.3, hemoglobin 10.8, sodium 135, creatinine 1.3.? Iron studies done in May 2021 show iron deficiency anemia.? Urinalysis positive for bacteria, WBC, leukocyte esterase.? Chest abdomen CT pelvis done which shows no acute traumatic findings, it does show sludge and small stones in gallbladder.? 5 mm renal cyst too small to further characterize.? CT head and facial CT negative for any abnormalities. Hospital Course Hospital Course Mrs. Helton was admitted to the medical bed. Clinically she was felt to be fluid overloaded with acute on chronic diastolic CHF. She had associated hyponatremia. She received IV diuresis. She has baseline chronic kidney disease. With diuresis she clinically improved as did her sodium, though her creatinine elevated transiently. Appears to be from volume shifts related to diuretics. Bradycardia with heart rate in the upper 50s was noted at presentation and adjustment was made to metoprolol dosing to account for this. Also had some orthostasis. She did get some fluids in addition to adjustments to several medications. In particular I will note that she is on Flomax and that hydralazine and chlorthalidone have been held along with decreased dose of metoprolol. I think multiple factors probably contributed to patient's increased falls of late. Reviewing old records does show that she has had dizziness and syncope or near syncope going back as far as 2018, if not longer. She had been started on aspirin and Plavix some years ago when found to have carotid disease similar to what she has today on ultrasound at 50 to 75% on the right. Some additional medical history was obtained in reviewing our prior electronic medical record and inputted into [facility]. Mrs. Helton herself is not able provide details of some of her diagnoses verbally corroborated what we had notated previously. Patient did work with PT and OT. She required minimal assist for position changes although was noted to require verbal cueing due to limited vision and need to be directed accordingly. She was standby assist otherwise for safety. She was able to ambulate 20 feet with improved stability noted compared to previous day on the day of discharge. Arrangements were made for home health physical therapy at [facility] which is where patient would prefer to go back to. She declined consideration for skilled facility which is what had been recommended by therapies initially. I am not certain that this will be sufficient for her and she may ultimately require transition to long- term care given multifaceted reasons for her falls. Burnette catheter was removed on the day of discharge. Mrs. Helton continued to have bruising to the chin, neck/upper chest and hands at discharge from prior fall. Abrasion in the bruising to the neck healing. Sh amy talks with her left eye closed due to blindness in the eye. 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 Lungs were clear. Abdomen was soft and patient is felt stable for discharge home. She had decreased edema but continued puffy legs.. Of note it appears patient received a prescription for Valium not too long before the onset of the frequent falls so I am not sure if this could have been a contributing factor to the acute change. Trazodone was held as well as promethazine-dm just decreasing potential contributors to increased fall risk. For patient's chronic pain, she is on Tylenol 3 and extra strength Tylenol (dosing limits included of 4 tabs of extra strength Tylenol and 3 tabs of Tylenol with codeine a day maximum). Physical Exam Urinary Catheter Management: Burnette: Cath Placed During This Visit: yes, but has since been removed by the nurse Reason for Continuing Indwelling Catheter: Other Urinary Catheter Date of Insertion: 12/10/21 Urinary Catheter Time of Insertion: 05:20 Date Urinary Catheter Removed: 12/13/21 Time Urinary Catheter Discontinued: 16:10 Discharge Data Studies Completed and Pending Completed Studies During Hospitalization Category Date Time Status CT cervical spin wo con* [id number] Stat Cat Scan 12/10/21 09:[address] chest abdomen pelvis [[place] [id number] Cat Scan 12/10/21 09:11 Completed ] Stat CT facial bones wo con* [id number] Stat Cat Scan 12/10/21 09:[address] head wo con* [id number] Stat Cat Scan 12/10/21 09:11 Completed CV carotid duplex BI* [id number] Routine Ultrasound 12/11/21 16:02 Completed CV. echo complete* [id number] Routine Ultrasound 12/11/21 16:02 Completed Pending at discharge Category Date Time Status Blood Culture Stat Lab 12/10/21 17:09 Results Radiology Impressions Cervical Spine CT 12/10/21 09:11 IMPRESSION: No acute findings. Chest/Abdomen/Pelvis CT 12/10/21 09:11 IMPRESSION: No acute findings.Multivessel atherosclerotic disease which involves the coronary arteries. IMPRESSION: 1. No acute traumatic findings. 2. There is sludge and/or gravel/small stones in the gallbladder. COMMENTS: Consistent with the [employer]'s Incidental Findings Committee white paper (J Am Apoorva Radiol 2018): Any incidental renal lesion less than 1 cm or classified as too small to characterize, or any incidental cystic renal lesion characterized as simple-appearing, is likely benign. No follow-up imaging is recommended for these lesions per consensus recommendations based on imaging criteria. Face CT 12/10/21 09:11 IMPRESSION: No acute findings. Head CT 12/10/21 09:11 IMPRESSION: No acute intracranial abnormality. Carotid Doppler Study 12/11/21 16:02 IMPRESSION: 1. Mild less than 50% stenosis within the right carotid bulb proximal internal carotid artery 2. Moderate 50-75% stenosis within the left carotid bulb and proximal internal carotid artery. REFERENCES: SRU CRITERIA. The degree of internal carotid artery stenosis is based on criteria defined by the Society of Radiologists in Ultrasound (SRU). Normal is no stenosis. Mild is less than 50% stenosis. Moderate is 50-69% stenosis. Severe is greater than 69% stenosis to near occlusion. Near occlusion is a markedly narrowed lumen. Total occlusion is no detectable patent lumen. Laboratory Results WBC 5.5 10^3/uL (4.0-10.0) 12/11/21 05:25 RBC 3.45 10^6/uL (4.1-5.3) L 12/11/21 05:25 Hgb 9.9 g/dL (11.5-15.3) L 12/11/21 05:25 Hct 29.7 % (37.0-47.0) L 12/11/21 05:25 MCV 86.1 fl (81-99) 12/11/21 05:25 MCH 28.7 pg (28.0-34.0) 12/11/21 05:25 MCHC 33.3 g/dL (30.0-36.0) 12/11/21 05:25 RDW 13.2 % (12.1-15.1) 12/11/21 05:25 Plt Count 183 10^3/cmm (130-400) 12/11/21 05:25 MPV 9.5 fL (7.4-10.4) 12/11/21 05:25 Neut % (Auto) 70.5 % 12/11/21 05:25 Lymph % (Auto) 20.3 % 12/11/21 05:25 [place] % (Auto) 7.9 % 12/11/21 05:25 Eos % (Auto) 0.4 % 12/11/21 05:25 Baso % (Auto) 0.4 % 12/11/21 05:25 Neut # (Auto) 3.85 10^3/uL (1.8-7.7) 12/11/21 05:25 Lymph # (Auto) 1.1 10^3/uL (0.8-4.8) 12/11/21 05:25 [place] # (Auto) 0.4 10^3/uL (0.2-0.9) 12/11/21 05:25 Eos # (Auto) 0.0 10^3/uL (0.0-0.8) 12/11/21 05:25 Baso # (Auto) 0.0 10^3/uL (0.0-0.1) 12/11/21 05:25 Nucleated RBC % (auto) 0 % 12/11/21 05:25 Nucleated RBCs # 0.0 /100WBC 12/11/21 05:25 Sodium 134 mmol/L (136-145) L 12/13/21 04:57 Potassium 3.9 mmol/L (3.5-5.1) 12/13/21 04:57 Chloride 102 mmol/L (98-107) 12/13/21 04:57 Carbon Dioxide 19 mmol/L (22-29) L 12/13/21 04:57 Anion Gap 16.9 (5-19) 12/13/21 04:57 BUN 41 mg/dL (8-23) H 12/13/21 04:57 Creatinine 1.4 mg/dL (0.5-0.9) H 12/13/21 04:57 GFR Calculation Not Reportable 12/13/21 04:57 Glucose 175 mg/dL (65-115) H 12/13/21 04:57 POC Glucose 221 mg/dL (70-110) H 12/13/21 11:51 Estimat Average Glucose 143 12/10/21 10:42 Hemoglobin A1c 6.6 % (4.0-6.0) H 12/10/21 10:42 Calculated Osmolality 292 mOsm/kg (285-295) 12/13/21 04:57 Calcium 8.5 mg/dL (8.5-10.5) 12/13/21 04:57 Phosphorus 3.9 mg/dL (2.5-4.5) 12/11/21 05:25 Magnesium 2.4 mg/dL (1.7-2.3) H 12/12/21 03:25 Iron 59 ug/dL (37-145) 12/10/21 16:17 TIBC 276 mcg/dl 12/10/21 16:17 % Saturation 21.3 % (20-50) 12/10/21 16:17 Unsat Iron Binding 217 ug/dL (112-347) 12/10/21 16:17 Total Bilirubin 0.4 mg/dL (0.15-1.2) 12/11/21 05:25 AST 11 U/L (0-32) 12/11/21 05:25 ALT 9 U/L (0-33) 12/11/21 05:25 Alkaline Phosphatase 55 IU/L (35-105) 12/11/21 05:25 Troponin T Baseline 21 ng/L (0-10) H 12/10/21 10:42 Troponin T 120 Minute 21.82 ng/L (0-10) H 12/10/21 13:01 Delta Troponin T 0.82 ABS# (0-10) 12/10/21 13:01 Troponin T Hi Sens 6Hr 20.79 ng/L (0-10) H 12/10/21 16:17 Troponin T Hi Sens 6Hr Delta -0.21 ng/L (0-12) L 12/10/21 16:17 NT-Pro-B Natriuret Pep 4966 pg/mL (0-450) H 12/10/21 10:42 Total Protein 6.6 g/dL (6.6-8.7) 12/11/21 05:25 Albumin 3.7 g/dL (3.5-5.2) 12/11/21 05:25 Globulin 2.9 g/dL (1.3-4.6) 12/11/21 05:25 Triglycerides 237 mg/dL (0-150) H 12/10/21 16:17 Cholesterol 123 mg/dL (0-200) 12/10/21 16:17 LDL Cholesterol, Calc 42 mg/dL (50-129) L 12/10/21 16:17 HDL Cholesterol 34 mg/dL (60-100) L 12/10/21 16:17 LDL/HDL Ratio 1.24 RATIO (0.00-3.22) 12/10/21 16:17 Cholesterol/HDL Ratio 3.62 mg/dL (0.0-4.40) 12/10/21 16:17 Vitamin B12 280 pg/mL (232-1245) 12/12/21 03:25 Procalcitonin 0.05 ng/mL (0-0.5) 12/10/21 16:17 TSH 1.28 uIU/mL (0.27-4.20) 12/10/21 16:17 Urine Color Yellow (Yellow) 12/10/21 12:48 Urine Appearance Clear (CLEAR) 12/10/21 12:48 Urine pH 5 (5-7) 12/10/21 12:48 Ur Specific [place] 1.020 (1.005-1.030) 12/10/21 12:48 Urine Protein Neg (Negative) 12/10/21 12:48 Urine Glucose (UA) Norm (Normal) 12/10/21 12:48 Urine Ketones Negative (Negative) 12/10/21 12:48 Urine Blood Neg (Negative) 12/10/21 12:48 Urine Nitrate Negative (Negative) 12/10/21 12:48 Urine Bilirubin 1+ (Negative) H 12/10/21 12:48 Urine Urobilinogen Norm mg/dL (Negative) 12/10/21 12:48 Ur Leukocyte Esterase 1+ (Negative) H 12/10/21 12:48 Urine RBC None /hpf (0-2) 12/10/21 12:48 Urine WBC 10-15 /hpf (0-5) H 12/10/21 12:48 Ur Squamous Epith Cells 5-10 /hpf (0-5) H 12/10/21 12:48 Amorphous Sediment Not Reportable 12/10/21 12:48 Urine Bacteria 2+ /hpf (NONE) H 12/10/21 12:48 Ur Random Sodium 38 mmol/L 12/10/21 12:48 Vitals Last Vital Signs Temp 98.1 F 12/13/21 16:00 Pulse 92 12/13/21 16:00 Resp 16 12/13/21 16:00 BP 167/73 12/13/21 16:00 Pulse Ox 99 12/13/21 16:00 Discharge Plan Discharge Patient Disposition: Home Health Service Condition: Stable Prescriptions: New metoprolol succinate 25 mg tablet extended release 24 hr 25 mg PO DAILY Qty: 30 0RF Continued aspirin [Adult Low Dose Aspirin] 81 mg tablet,delayed release (DR/EC) 81 mg PO DAILY 0RF (DME) Diabetic shoes with 3 sets of inserts See Rx Instructions .Route .MEDSUPPLY Qty: 1 0RF Rx Instructions: As directed by HOME (DME) walker See Rx Instructions .Route .MEDSUPPLY Qty: 1 0RF Rx Instructions: As directed by HOME amlodipine 10 mg tablet 10 mg PO DAILY 0RF azelastine 0.15 % (205.5 mcg) spray,non-aerosol 1 spray INTRANASAL BID PRN (Reason: unknown) 0RF pantoprazole [Protonix] 20 mg tablet,delayed release (DR/EC) 20 mg PO DAILY 0RF clopidogrel 75 mg tablet 75 mg PO DAILY 0RF Januvia 100 mg tablet 100 mg PO DAILY 0RF bismuth subsalicylate [Pepto-Bismol] 262 mg/15 mL suspension 524 mg PO DAILY PRN (Reason: unknown) 0RF artifi.tears(hypromellose)(PF) 0.3 % drops 1 drop ophthalmic (eye) BEDTIME PRN (Reason: unknown) 0RF lovastatin 40 mg tablet 40 mg PO DAILY 0RF magnesium hydroxide [Milk of Magnesia] 400 mg/5 mL suspension 15 ml PO DAILY PRN (Reason: Constipation) 0RF fluticasone propionate [Flonase Allergy Relief] 50 mcg/actuation spray, suspension 2 spray INTRANASAL DAILY 0RF ferrous sulfate 325 mg (65 mg iron) tablet 325 mg PO DAILY 0RF Systane Complete 0.6 % drops 1 drp ophthalmic (eye) QID 0RF alendronate 70 mg tablet 70 mg PO .Weekly 0RF Label Comments: on fridays Rx Instructions: ON FRIDAYS buspirone 10 mg tablet 10 mg PO BID Qty: 60 3RF fluoxetine [Prozac] 20 mg capsule 20 mg PO QAM Qty: 30 3RF (DME) Cam Boot to the left See Rx Instructions .Route .MEDSUPPLY Qty: 1 0RF Rx Instructions: As directed meclizine 25 mg Tablet 25 mg PO Q8H PRN (Reason: Dizziness) 0RF acetaminophen-codeine 300-30 mg Tablet 1 tab PO Q8H MDD 3 tabs PRN (Reason: Pain) Qty: 0 0RF Tylenol Extra Strength 500 mg Tablet 500 mg PO Q6H MDD 4 tabs PRN (Reason: pain (scale score 1-3)) Qty: 0 0RF lutein-zeaxanthin [Ocuvite Lutein 25] 25-5 mg Capsule 1 cap PO DAILY 0RF Held metformin 500 mg tablet extended release 24 hr 1,000 mg PO BID 0RF Hold Instructions: Hold until evaluted by PCP; held due to elevated creatinine to 1.7 in hospital tamsulosin [Flomax] 0.4 mg capsule 0.4 mg PO DAILY 0RF Hold Instructions: Hold until follow up with PCP; held due to falls/syncope/orthostasis hydralazine 100 mg tablet 100 mg PO TID 0RF Hold Instructions: Until follow up with PCP too evaluate ongoing need; held due to orthostasis chlorthalidone 25 mg Tablet 25 mg PO DAILY 0RF Hold Instructions: Resume on 12/16/21. Discontinued metoprolol succinate 100 mg tablet extended release 24 hr 100 mg PO DAILY 0RF diazepam 5 mg tablet 5 mg PO Q8H PRN (Reason: Anxiety) 0RF trazodone 50 mg tablet See Rx Instructions PO .QHS PRN (Reason: insomnia) Qty: 30 3RF Rx Instructions: Take one-half or one full tablet by mouth at bedtime, if needed, for insomnia promethazine-DM 6.25-15 mg/5 mL Syrup 5 ml PO Q6H PRN (Reason: Congestion) 0RF Discharge Orders: Discharge Order (Routine); Ordered 12/13/21 Ordered By: Jennifer Perkins Other Ambulatory Orders: Basic Metabolic Panel (Routine) Timeframe: 1 Week Location: Determined by Patient Ordered By: Jennifer Perkins Referrals: [facility] [Outside] [facility], [Staff Physician] - Chidi Anaya DO [Primary Care Provider] - 4-7 days (with BP check and BMP. Multiple medications changed or held due to syncope and falls with orthostasis and mild aortic stenosis identified) Discharge Diet: Advance as tolerated Discharge Activity: Use walker/crutches as instructed and As per PT/OT instructions Patient Instructions: Metoprolol (By mouth), Aortic Stenosis (DC), Acute Kidney Injury (DC), Syncope (DC), Fall Prevention for Older Adults (GEN), Opioid Safety Activity Restrictions/Additional Instructions: Your doctor will need to evaluate your blood pressure and blood work (for renal function) at follow up and make decision about whether to resume or stop several usual home medications. Review medication list closely for changes as outlined. Suspected that your falls are due to a combination of medications, low blood pressures, mild aortic stenosis, acute kidney injury. Your water pill is being held for a few days and then resumed. If you have a weight gain of 3-5 or more pounds in one day before 12/16, you may resume chlorthalidone sooner. Several blood pressure medications have been held. Your metoprolol dose was decreased. Flomax and valium held presently as well. Use walker or cane with ALL walking and be slow with position changes. Home health has been ordered for physical therapy. Discharge Attestations Time Spent in Discharge Care*: greater than 30 min Specific Discharge Activities: educating patient, discussing with pcp/other providers, discussing with case packer/social workers/dc planners, documenting/other paperwork and evaluating patient/reviewing data Quality Metrics Clinical Quality Measures [ No reported AMI, CVA or VTE this stay] Coding Level of Care Code Acute Chg FW DC note Diagnoses Fall W19.XXXA Encounter type: initial encounter Pain in right hip M25.551 Low back pain M54.50 Back pain laterality: midline Chronicity: acute Sciatica presence: without sciatica Recurrent syncope R55 At risk for falls Z91.81 Iron deficiency anemia D50.0 Iron deficiency anemia type: chronic blood loss Anxiety disorder, unspecified F41.9 Major depressive disorder, recurrent, in full remission F33.42 Hypertension I10 Hypertension type: primary hypertension Diabetes E11.42 Diabetes mellitus type: type 2 Diabetes mellitus half-way insulin use: without half-way use Diabetes mellitus complication status: with neurologic complications Diabetes mellitus complication detail: with polyneuropathy Blind H54.7 Diastolic CHF I50.33 Heart failure chronicity: acute on chronic Acute renal injury due to hypovolemia N17.9; E86.1 Chronic kidney disease, stage 3a N18.31
[2021-12-13 17:21] LABS: Glucose Point of Care 174 mg/dL (70-110)
== END 2021-12-13 19:00 | disposition home health service (06) | DRG 291 ==
LOC: ER 13:55 → MEDSURG 17:03
PROVIDERS: Admitting Provider Internal Medicine; Emergency Provider Emergency Medicine; PCP Internal Medicine; Visit Provider Hospitalist
DX: I13.0 Hypertensive heart and chronic kidney disease with heart failure and stage 1 through stage 4 chronic kidney disease, or unspecified chronic kidney disease (principal); I50.33 Acute on chronic diastolic (congestive) heart failure; N17.9 Acute kidney failure, unspecified; E87.1 Hypo-osmolality and hyponatremia; I95.2 Hypotension due to drugs; N18.31 Chronic kidney disease, stage 3a; E11.22 Type 2 diabetes mellitus with diabetic chronic kidney disease; E11.42 Type 2 diabetes mellitus with diabetic polyneuropathy; R29.6 Repeated falls; R55 Syncope and collapse; T44.7X5A Adverse effect of beta-adrenoreceptor antagonists, initial encounter; T50.995A Adverse effect of other drugs, medicaments and biological substances, initial encounter; R00.1 Bradycardia, unspecified; T46.5X5A Adverse effect of other antihypertensive drugs, initial encounter; R51.9 Headache, unspecified; D50.0 Iron deficiency anemia secondary to blood loss (chronic); M54.50 Low back pain, unspecified; E78.5 Hyperlipidemia, unspecified; H54.7 Unspecified visual loss; K21.9 Gastro-esophageal reflux disease without esophagitis; F33.42 Major depressive disorder, recurrent, in full remission; F41.9 Anxiety disorder, unspecified; Z79.84 Long term (current) use of oral hypoglycemic drugs; Z79.82 Long term (current) use of aspirin; Z79.02 Long term (current) use of antithrombotics/antiplatelets; Z91.81 History of falling; Z99.3 Dependence on wheelchair; Z87.891 Personal history of nicotine dependence
CPT/HCPCS: 36415; 36416; 51702; 70450; 70486; 71250; 72100; 72125; 73502; 74176; 80048; 80053; 80061; 81001; 82607; 82962; 83036; 83540; 83550; 83735; 83880; 84100; 84145; 84300; 84443; 84484; 85025; 87040; 87086; 93005; 93306; 93880; 94664; 96372; 96374; 97110; 97116; 97161; 97166; 97530; 99283; 99285; J1644; J1815; J1940; J2270; J3475; J7030

== ENCOUNTER → 2022-01-15 13:06 | Outpatient (BNVA) | payer MEDICARE, MEDICAID, SELFPAY | PROVIDERS: PCP Internal Medicine; Visit Provider Podiatrist Foot & Ankle Surgery | DX: E11.621 Type 2 diabetes mellitus with foot ulcer (principal); L97.522 Non-pressure chronic ulcer of other part of left foot with fat layer exposed; Z91.81 History of falling; M21.612 Bunion of left foot; M21.611 Bunion of right foot; M20.41 Other hammer toe(s) (acquired), right foot; M20.42 Other hammer toe(s) (acquired), left foot; L85.3 Xerosis cutis; M76.829 Posterior tibial tendinitis, unspecified leg; I73.9 Peripheral vascular disease, unspecified; E11.42 Type 2 diabetes mellitus with diabetic polyneuropathy | CPT/HCPCS: 11042 ==

== ENCOUNTER 2022-01-20 14:56 | Inpatient (IN) | payer MEDICARE, MEDICAID, SELFPAY ==
[2022-01-20] VITALS (22 sets, daily range): BP systolic 119–156; BP diastolic 67–110; PULSE 100–133; RESP 16–32; TEMP 37.2–37.4; O2SAT 93–96; BMI 38.2
--- NOTE | 2022-01-20 14:25 | ED_ITS ---
HPI - Chest Pain General: Chief Complaint: Chest Pain Stated Complaint: CHEST PAIN History of Present Illness: Ms. Helton is a 76-year-old lady with complex past medical history including CKD, hypertension, obesity, diastolic heart failure, diabetes who presents to the ER for evaluation of chest pain and shortness of breath. Onset of symptoms was last night and subacute without know n specific provoking factor. She endorses substernal chest heaviness with radiation to the neck associated with shortness of breath new oxygen requirement. Intensity symptoms is moderate. Course has worsened. Denies frequent episodes of similar in the past. She does note that she was taken off many from her failure medications yesterday. No other specific changes in health, exacerbating, or alleviating factors identified. Onset (ago): hour(s) Timing of current episode: increasing Onset: during rest Pain location: substernal Pain radiation: neck Severity: moderate Quality: heaviness Relieving factors: nothing Exacerbating factors: nothing Associated symptoms: Reports dyspnea Review of Systems General: Reports: 10 or more systems reviewed and unremarkable except in HPI and below Resp: Reports: dyspnea PFSH ED PFSH: Medical History Anxiety disorder, unspecified Blind Chronic kidney disease, stage 3a Diabetes Diastolic CHF GERD (gastroesophageal reflux disease) Hepatitis C Hyperlipidemia Hypertension Major depressive disorder, recurrent, in full remission Psychiatric care Surgical History History of eye surgery Social History Smoking and tobacco status: former smoker Quit status (tobacco): has quit using tobacco Year quit tobacco: 1196 Former quit date comment: 2 PPD since age 16 Second hand smoke exposure: No Physical Exam Const: COMMON NORMALS: alert GENERAL APPEARANCE: cooperative, well developed and ill appearing (Somewhat) HENMT: COMMON NORMALS: normocephalic and atraumatic HEAD & SCALP: normocephalic and atraumatic Eye: COMMON NORMALS: conjunctivae normal CONJUNCTIVA: Yes conjunctivae normal SCLERA: sclerae normal Neck/C-Spine: COMMON NORMALS: supple GENERAL: Yes trachea midline Resp: EFFORT & INSPECTION: Yes tachypneic AUSCULTATION: diminished lung sounds Cardio: COMMON NORMALS: regular rhythm RATE: tachycardic RHYTHM: regular rhythm GI: COMMON NORMALS: Soft to palpation PALPATION: Yes Soft to palpation and No Tenderness to palpation present (GI) PERCUSSION: normal to percussion Extremity: GENERAL: Yes normal exam except as noted and Yes edema Neuro: COMMON NORMALS: moves all extremities SENSORIUM/ORIENTATION: Yes alert and No Orientation impaired Psych: COMMON NORMALS: mental status grossly normal and Normal thought process present THOUGHT PROCESS: Normal thought process present Course ED course: - Patient was seen and evaluated by me at bedside - Patient placed on cardiac monitors, IV access obtained - Initial evaluation notable for exam as above - Labs and xrays personally interpreted by me. EKG shows sinus tachycardia with first-degree AV block, nonspecific ST segment abnormalities, no STEMI. ?Patient already had aspirin - Labs notable for leukocytosis, normocytic anemia. Metabolic panel with baseline CKD, mild hyponatremia. Negative delta troponin. BNP somewhat elevated. - Imaging notable for left pleural effusion without lobar consolidation or pneumothorax. D-dimer elevated which was ordered given patient cannot be ruled out by Wells/PERC. CTA with pericardial effusion and lower lobe effusions. -Discussed with cardiology and echocardiogram ordered - Upon serial reexamination after treatment the patient was similar - Based on patient history, evaluation, and testing as interpreted the most likely cause of the patient's condition is chest pain with acute on chronic heart failure in a patient who is not low risk by heart score. - The results of ED evaluation were discussed with the patient including plan for admission due to requirement for level of care not available if discharged to prevent significant worsening/deterioration. - Admitting service was contacted and Dr Augustin with the hospitalist service agreed to admit the patient - Patient was admitted without further deterioration or significant events. Note: Click bubbles or prepopulated ny in note writing are used for assistance with data collection and billing and are inherently more limited than narrative and other text portions of this note. Please use narrative for additional clinical history and defer to narrative/free test for any case of contradictory information. If information appears in only free text or click bubble it should be considered present or absent as reported. Please contact note insurance underwriter for clarifications of clinical information or contradictory information. MDM is a brief summary, contradictory or erroneous seeming information should be clarified and full note should be reviewed. Vital Signs: Vital signs: Vital Signs Temperature 97.7 F 01/23/22 16:28 Pulse Rate 87 01/23/22 16:28 Respiratory Rate 27 H 01/23/22 16:28 Blood Pressure 136/60 01/23/22 16:28 Pulse Oximetry 98 01/23/22 16:28 Oxygen Delivery Me thod 01/23/22 15:16 Oxygen Flow Rate 0 01/22/22 15:51 MDM - Chest Pain Medical Decision Making 76-year-old lady presenting with chest pain. Patient found to have acute on chronic heart failure with evidence of volume overload in addition to new pericardial effusion. Admitted for further management including further cardiac evaluation. Medical Records I reviewed the patient's medical records. Lab Data I reviewed the patient's lab results. : 01/23/22 02:03 01/23/22 02:03 Radiology Impressions Chest X-Ray 01/20/22 14:36 IMPRESSION: 1. Left lower lobe pleural effusion. 2. Cardiomegaly for projection 3. Low lung volumes Chest CTA 01/20/22 15:50 IMPRESSION: 1. Negative for pulmonary embolism. 2. Cardiomegaly 3. Large pericardial effusion. 4. Coronary artery calcifications are seen. 5. Bilateral lower lobe pleural effusions. 6. Negative for right heart strain Laboratory Results WBC 13.5 10^3/uL (4.0-10.0) H 01/20/22 14:55 RBC 3.46 10^6/uL (4.1-5.3) L 01/20/22 14:55 Hgb 9.8 g/dL (11.5-15.3) L 01/20/22 14:55 Hct 31.2 % (37.0-47.0) L 01/20/22 14:55 MCV 90.2 fl (81-99) 01/20/22 14:55 MCH 28.3 pg (28.0-34.0) 01/20/22 14:55 MCHC 31.4 g/dL (30.0-36.0) 01/20/22 14:55 RDW 13.8 % (12.1-15.1) 01/20/22 14:55 Plt Count 345 10^3/cmm (130-400) 01/20/22 14:55 MPV 9.3 fL (7.4-10.4) 01/20/22 14:55 Neut % (Auto) 79.8 % 01/20/22 14:55 Lymph % (Auto) 9.6 % 01/20/22 14:55 [place] % (Auto) 9.3 % 01/20/22 14:55 Eos % (Auto) 0.5 % 01/20/22 14:55 Baso % (Auto) 0.4 % 01/20/22 14:55 Neut # (Auto) 10.77 10^3/uL (1.8-7.7) H 01/20/22 14:55 Lymph # (Auto) 1.3 10^3/uL (0.8-4.8) 01/20/22 14:55 [place] # (Auto) 1.3 10^3/uL (0.2-0.9) H 01/20/22 14:55 Eos # (Auto) 0.1 10^3/uL (0.0-0.8) 01/20/22 14:55 Baso # (Auto) 0.1 10^3/uL (0.0-0.1) 01/20/22 14:55 Nucleated RBC % (auto) 0 % 01/20/22 14:55 Nucleated RBCs # 0.0 /100WBC 01/20/22 14:55 ESR 62 mm/hr (0-15) H 01/20/22 14:55 PT 15.20 SECONDS (12.1-14.9) H 01/20/22 14:55 INR 1.17 (0.8-1.2) 01/20/22 14:55 APTT 35.4 SECONDS (23.9-36.7) 01/20/22 14:55 D-Dimer 4.25 ug/mIFEU (0-0.59) H 01/20/22 14:55 Sodium 132 mmol/L (136-145) L 01/20/22 14:55 Potassium 4.8 mmol/L (3.5-5.1) 01/20/22 14:55 Chloride 97 mmol/L (98-107) L 01/20/22 14:55 Carbon Dioxide 24 mmol/L (22-29) 01/20/22 14:55 Anion Gap 15.8 (5-19) 01/20/22 14:55 BUN 23 mg/dL (8-23) 01/20/22 14:55 Creatinine 1.4 mg/dL (0.5-0.9) H 01/20/22 14:55 GFR Calculation Not Reportable 01/20/22 14:55 Glucose 232 mg/dL (65-115) H 01/20/22 14:55 Calculated Osmolality 285 mOsm/kg (285-295) 01/20/22 14:55 Lactic Acid 1.3 mmol/L (0.5-2.2) 01/20/22 14:55 Calcium 9.1 mg/dL (8.5-10.5) 01/20/22 14:55 Magnesium 1.9 mg/dL (1.7-2.3) 01/20/22 14:55 Total Bilirubin 0.3 mg/dL (0.15-1.2) 01/20/22 14:55 AST 16 U/L (0-32) 01/20/22 14:55 ALT 11 U/L (0-33) 01/20/22 14:55 Alkaline Phosphatase 109 U/L (35-105) H 01/20/22 14:55 Troponin T Baseline 18 ng/L (0-10) H 01/20/22 16:34 Troponin T 120 Minute 17.56 ng/L (0-10) H 01/20/22 18:39 Delta Troponin T -0.44 ABS# (0-10) L 01/20/22 18:39 C-Reactive Protein 68.0 mg/L (0.0-4.9) H 01/20/22 16:48 NT-Pro-B Natriuret Pep 1860 pg/mL (0-450) H 01/20/22 14:55 Total Protein 6.7 g/dL (6.6-8.7) 01/20/22 14:55 Albumin 3.7 g/dL (3.5-5.2) 01/20/22 14:55 Globulin 3.0 g/dL (1.3-4.6) 01/20/22 14:55 Lipase 7 U/L (13-60) L 01/20/22 14:55 Procalcitonin 0.08 ng/mL (0-0.5) 01/20/22 14:55 TSH 0.45 uIU/mL (0.27-4.20) 01/20/22 14:55 SARS-CoV-2 Ag (Rapid) Negative (Negative) 01/20/22 15:33 Discharge Plan Discharge Patient Disposition: Admitted As Inpatient Admit Provider: Ubaldo Augustin Clinical Impression: Chest pain, Shortness of breath, Acute on chronic congestive heart failure, Acute pericardial effusion, Pleural effusion, bilateral Condition: Stable Discharge Diet: Cardiac Discharge Activity: Resume usual activity and Increase activity as tolerated Coding Level of Care Code ED Blood Bank Custodian for Chg Fwd Exam Comprehensive
--- NOTE | 2022-01-20 14:36 | XRR_ITS ---
PROCEDURE INFORMATION: Exam: XR Chest Exam date and time: 01/20/2022 2:58 PM Age: 76 years old Clinical indication: Chest wall pain; Additional info: Chest pain TECHNIQUE: Imaging protocol: Radiologic exam of the chest. Views: 1 view. COMPARISON[place] [id number] 12/10/2021 10:29 AM FINDINGS: Lungs: Low lung volumes seen. No consolidation. Pleural spaces: Left lower lobe pleural effusion. No pneumothorax. Heart/Mediastinum: Unremarkable. There is cardiomegaly for projection. Bones/joints: Unremarkable. XR/XR chest 1V portable [id number] IMPRESSION: 1. Left lower lobe pleural effusion. 2. Cardiomegaly for projection 3. Low lung volumes
--- NOTE | 2022-01-20 14:36 | ECG_ITS ---
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 Measurements Intervals [place] Rate: 107 P: MT: QRS: -17 QRSD: 86 T: 65 QT: 304 QTc: 406 Interpretive Statements SINUS TACHYCARDIA LOW QRS VOLTAGE IN PRECORDIAL LEADS [QRS DEFLECTION < 1.0 mV IN CHEST LEADS] ANTEROSEPTAL MYOCARDIAL INFARCTION , PROBABLY OLD [40+ ms Q WAVE IN V1-V4] Compared to ECG 12/10/2021 12:02:54 Low QRS voltage now present Myocardial infarct finding now present Sinus rhythm no longer present Intraventricular conduction delay no longer present Electronically Signed On 01-23-2022 7:24:20 CDT by Anupama Tirado M.D. [id number]
[2022-01-20 15:12] LABS: Basophils # 0.1 10^3/uL (0.0-0.1); Basophils % 0.4 %; Eosinophils # 0.1 10^3/uL (0.0-0.8); Eosinophils % 0.5 %; Hematocrit 31.2 % (37.0-47.0); Hemoglobin 9.8 g/dL (11.5-15.3); Lymphocytes # 1.3 10^3/uL (0.8-4.8); Lymphocytes % 9.6 %; Mean Corpuscular HGB Conc 31.4 g/dL (30.0-36.0); Mean Corpuscular Hemoglobin 28.3 pg (28.0-34.0); Mean Corpuscular Volume 90.2 fl (81-99); Mean Platelet Volume 9.3 fL (7.4-10.4); Monocytes # 1.3 10^3/uL (0.2-0.9); Monocytes % 9.3 %; Neutrophils # 10.77 10^3/uL (1.8-7.7); Neutrophils % 79.8 %; Nucleated Red Blood Cells % 0 %; Platelet Count 345 10^3/cmm (130-400); Red Blood Count 3.46 10^6/uL (4.1-5.3); Red Cell Distribution Width 13.8 % (12.1-15.1); White Blood Count 13.5 10^3/uL (4.0-10.0)
[2022-01-20 15:34] LABS: INR 1.17 (0.8-1.2)
[2022-01-20 15:35] LABS: Partial Thromboplastin Time 35.4 SECONDS (23.9-36.7)
[2022-01-20 15:38] LABS: Lactic Sepsis W/Reflex 1.3 mmol/L (0.5-2.2)
[2022-01-20 15:39] LABS: Alanine Aminotransferase 11 U/L (0-33); Albumin Level 3.7 g/dL (3.5-5.2); Alkaline Phosphatase 109 U/L (35-105); Anion Gap 15.8 (5-19); Aspartate Amino Transferase 16 U/L (0-32); Blood Urea Nitrogen 23 mg/dL (8-23); Calcium 9.1 mg/dL (8.5-10.5); Carbon Dioxide 24 mmol/L (22-29); Chloride 97 mmol/L (98-107); Glucose 232 mg/dL (65-115); Lipase 7 U/L (13-60); Magnesium 1.9 mg/dL (1.7-2.3); NT Pro B Type Natriuretic Pept 1860 pg/mL (0-450); Osmolality Calculated 285 mOsm/kg (285-295); Potassium 4.8 mmol/L (3.5-5.1); Sodium 132 mmol/L (136-145); Thyroid Stimulating Hormone 0.45 uIU/mL (0.27-4.20); Total Bilirubin 0.3 mg/dL (0.15-1.2); Total Protein 6.7 g/dL (6.6-8.7)
[2022-01-20 15:44] LABS: D Dimer 4.25 ug/mIFEU (0-0.59)
--- NOTE | 2022-01-20 15:50 | CTR_ITS ---
PROCEDURE INFORMATION: Exam: CTA Chest With Contrast Exam date and time: 01/20/2022 5:21 PM Age: 76 years old Clinical indication: Pain; Shortness of breath; Angina pectoris; Additional info: Chest pain, SOB, elevated d-dimer TECHNIQUE: Imaging protocol: Computed tomographic angiography of the chest with contrast. 3D rendering (Not supervised by radiologist): MIP and/or 3D reconstructed images were created by the technologist. Radiation optimization: All CT scans at this facility use at least one of these dose optimization techniques: automated exposure control; mA and/or kV adjustment per patient size (includes targeted exams where dose is matched to clinical indication); or iterative reconstruction. Contrast material: OMNI 350; Contrast volume: 60 ml; Contrast route: INTRAVENOUS (IV); COMPARISON: [place] [id number] 12/10/2021 10:29 AM RADIATION DOSE METRICS: Total DLP (mGy-cm): 463.9 FINDINGS: Pulmonary arteries: Negative exam No pulmonary emboli. Aorta: Unremarkable. No aortic aneurysm. No aortic dissection. Lungs: Unremarkable. No consolidation. No masses. Pleural spaces: Unremarkable. No pneumothorax. Moderate volume bilateral pleural effusion. Heart: . There is cardiomegaly. coronary artery calcifications There is a large pericardial effusion. This finding was not present on prior CT examination. No right heart strain Lymph nodes: Unremarkable. No enlarged lymph nodes. Bones/joints: Dorsal spine osteoarthritis. No acute fracture. Soft tissues: Unremarkable. CT/CT angio chest PE protcl [id number] IMPRESSION: 1. Negative for pulmonary embolism. 2. Cardiomegaly 3. Large pericardial effusion. 4. Coronary artery calcifications are seen. 5. Bilateral lower lobe pleural effusions. 6. Negative for right heart strain
[2022-01-20 16:05] LABS: SARS Covid-2 Antigen Negative (Negative)
--- NOTE | 2022-01-20 16:36 | ECG_ITS ---
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 Measurements Intervals [place] Rate: 104 P: RI: QRS: -16 QRSD: 90 T: 26 QT: 320 QTc: 423 Interpretive Statements POSSIBLY SINUS TACHYCARDIA LOW QRS VOLTAGE IN PRECORDIAL LEADS [QRS DEFLECTION < 1.0 mV IN CHEST LEADS] POSSIBLE ANTERIOR MYOCARDIAL INFARCTION , PROBABLY OLD [30 ms Q WAVE IN V3/V4, OR R < 0.2 mV IN V4] INFERIOR MYOCARDIAL INFARCTION , PROBABLY OLD [40+ ms Q WAVE AND/OR ST/T ABNORMALITY IN II/aVF] Compared to ECG 01/20/2022 15:17:25 No significant changes Electronically Signed On 01-23-2022 7:37:38 CDT by Anupama Tirado M.D. [id number]
--- NOTE | 2022-01-20 17:13 | ECG_ITS ---
[facility] Test Date: 2022-01-20 Pat Name: Hyun Bowers Department: Room: [facility] Gender: Female Mill Hand: : 1945 Requested By: Christopher Campa Order Number: [id number] Fátima MD: Anupama Tirado M.D. Measurements Intervals [place] Rate: 103 P: [place]: QRS: -15 QRSD: 86 T: 26 QT: 314 QTc: 411 Interpretive Statements SINUS TACHYCARDIA LOW QRS VOLTAGE IN PRECORDIAL LEADS [QRS DEFLECTION < 1.0 mV IN CHEST LEADS] SEPTAL MYOCARDIAL INFARCTION , PROBABLY OLD [40+ ms Q WAVE IN V1/V2] INFERIOR MYOCARDIAL INFARCTION , PROBABLY OLD [40+ ms Q WAVE AND/OR ST/T ABNORMALITY IN II/aVF] Compared to ECG 01/20/2022 17:00:12 No significant changes Electronically Signed On 01-22-2022 8:11:02 CDT by Anupama Tirado M.D. [email or web address].[id number] f
[2022-01-20 17:17] LABS: Troponin(5th) Baseline 18 ng/L (0-10)
[2022-01-20] MEDS: iohexol 350 mg/mL 100 mL Btl IV (17:26)
--- NOTE | 2022-01-20 18:16 | USCV_ITS ---
Hyun Bowers Age: 76 Gender: F : 1945 Exam Date: 01/20/2022 18:28 Ordering Phys: Christopher Campa MD Technologist: Bg De Leon [place] [facility] [place]: pericardial effusion BP: 145 / 82 HR: 104 Rhythm: Sinus Technical Quality: Adequate MEASUREMENTS (Male / Female) Normal Values 2D ECHO LV Diastolic Diameter PLAX 3.9 cm 4.2 - 5.9 / 3.9 - 5.3 cm LV Systolic Diameter PLAX 2.6 cm IVS Diastolic Thickness 1.1 cm 0.6 - 1.0 / 0.6 - 0.9 cm IVS Systolic Thickness 1.4 cm LVPW Diastolic Thickness 1.3 cm 0.6 - 1.0 / 0.6 - 0.9 cm LVPW Systolic Thickness 1.2 cm LVOT Diameter 2.1 cm LV Ejection Fraction 2D Teich 61.0 % LV Ejection Fraction MOD 2C 68.0 % LV Ejection Fraction 2C AL 67.1 % LA Diameter 4.0 cm IVC Diameter 2.5 cm M-MODE LV Diastolic Diameter MM 5.5 cm 4.2 - 5.9 / 3.9 - 5.3 cm LV Systolic Diameter MM 3.8 cm LV Ejection Fraction MM Teich 57.2 % IVS Diastolic Thickness MM 0.9 cm 0.6 - 1.0 / 0.6 - 0.9 cm IVS Systolic Thickness MM 1.7 cm LVPW Diastolic Thickness MM 1.2 cm 0.6 - 1.0 / 0.6 - 0.9 cm LVPW Systolic Thickness MM 1.8 cm RV Diastolic Diameter MM 2.0 cm Aortic Annulus Diameter 3.7 cm LA Ao Ratio MM 1.3 MV E Point Septal Separation 1.3 cm DOPPLER AV Peak Velocity 176.0 cm/s LVOT Peak Velocity 91.0 cm/s AV Area Cont Eq vti 2.1 cm squared AV Area Cont Eq pk 1.8 cm squared MV Area PHT 5.0 cm squared Mitral E to A Ratio 0.7 MV E' Velocity 60.4 cm/s Mitral E to MV E' Ratio 9.6 Mitral E to LV E' Lateral Ratio 8.7 Mitral E to LV E' Septal Ratio 10.8 TR Peak Velocity 144.0 cm/s TR Peak Gradient 8.3 mmHg TV Peak E Velocity 87.0 cm/s Right Atrial Pressure 3.0 mmHg Pulmonary Artery Systolic Pressu 11.3 mmHg PV Peak Velocity 120.0 cm/s FINDINGS Left Ventricle Normal left ventricular size, systolic function with no regional wall motion abnormalities. Left ventricular ejection fraction is estimated at 60 %. Right Ventricle Normal right ventricular size and systolic function. Right Atrium Normal right atrial size. Left Atrium Normal left atrial size. Mitral Valve Thickened mitral valve. No mitral valve stenosis. No mitral valve regurgitation. Aortic Valve Aortic valve not well visualized. No aortic valve stenosis. No aortic valve regurgitation. Tricuspid Valve Structurally normal tricuspid valve. Trace to mild tricuspid valve regurgitation. Pulmonic Valve Pulmonic valve not well visualized. Pericardium Small to moderate circumferential pericardial effusion. No evidence of hemodynamic compromise based on this study. Aorta Normal size aortic root and proximal ascending aorta. IVC Dilated inferior vena cava with decreased respiratory variation. CONCLUSIONS 1. Normal left ventricular size, systolic function with no regional wall motion abnormalities. Left ventricular ejection fraction is estimated at 60 %. 2. Small to moderate circumferential pericardial effusion. No evidence of hemodynamic compromise based on this study. 3. Dilated inferior vena cava with decreased respiratory variation. 4. When compared to study dated 12/11/2021, there is small to moderate circumferential pericardial effusion now. Anupama Tirado MD (Electronically Signed) Final Date: 20 January 2022 21:48 S
[2022-01-20 18:43] LABS: Erythrocyte Sedimentation Rate 62 mm/hr (0-15)
[2022-01-20 19:11] LABS: Troponin 5 2HR 17.56 ng/L (0-10)
[2022-01-20 19:12] LABS: Troponin 5 2HR Delta -0.44 ABS# (0-10)
--- NOTE | 2022-01-20 20:24 | PM.HP ---
Providers/Chief Complaint Admitting Physician: Ubaldo Augustin MD Primary Care Provider: Chidi Anaya DO Chief Complaint: CHEST PAIN History of Present Illness Hyun Bowers is a 76 year old female with a anxiety, depression, hypertension, hyperlipidemia, diabetes, recent hospitalization for CHF exacerbation, history of carotid artery disease, history of fall, who presents to [facility] due to chest pain, shortness of breath, lower extremity edema. She tells me that recently her diuretics have been stopped by her her primary care due to elevated creatinine, and she tells me that her legs have become more swollen, she has been experiencing increased shortness of breath. She tells her that she is here in the hospital because this morning she woke up with severe substernal chest pain, which improved with sitting up and leaning forward, she is unable to lie down due to shortness of breath and chest pain. Denies any fevers, no chills, no cough, no lightheadedness, no dizziness. She tells that the chest pain is almost a pressure-like pain, nonradiating, no nausea, vomiting associated shortness of breath. She denies any history of stent placement but is on aspirin and Plavix Review of Systems Card: Reports: chest pain Resp: Reports: dyspnea Neuro: Denies: headache(s) Medications/Allergies Home Medications Medication Instructions Recorded Confirmed Last Taken Type artifi.tears(hypromellose)(PF) 0.3 1 drop ophthalmic (eye) BEDTIME 07/10/19 01/20/22 Unknown History % eye drops PRN Dry Eyes azelastine 205.5 mcg (0.15 %) 1 spray intranasal BID PRN Nasal 07/10/19 01/20/22 Unknown History nasal spray Congestion bismuth subsalicylate 262 mg/15 mL 524 mg PO DAILY PRN Stomach 07/10/19 01/20/22 Unknown History oral suspension (Pepto-Bismol) clopidogrel 75 mg tablet 75 mg PO DAILY 07/10/19 01/20/22 12/10/21 History fluticasone propionate 50 2 spray intranasal DAILY PRN Nasal 07/10/19 01/20/22 12/10/21 History mcg/actuation nasal Congestion spray,suspension (Flonase Allergy Relief) lovastatin 40 mg tablet 40 mg PO DAILY 07/10/19 01/20/22 12/10/21 History magnesium hydroxide 400 mg/5 mL 30 - 60 ml PO DAILY PRN 07/10/19 01/20/22 Unknown History oral suspension (Milk of Magnesia) Constipation pantoprazole 20 mg tablet,delayed 20 mg PO DAILY 07/10/19 01/20/22 12/10/21 History release (Protonix) aspirin 81 mg tablet,delayed 81 mg PO DAILY 07/13/19 01/20/22 12/10/21 History release (Adult Low Dose Aspirin) amlodipine 10 mg tablet 10 mg PO DAILY 05/18/21 01/20/22 12/10/21 History alendronate 70 mg tablet 70 mg PO Q7D 10/16/21 01/20/22 12/08/21 History buspirone 10 mg tablet 10 mg PO BID #60 tabs 10/16/21 01/20/22 12/10/21 Rx ferrous sulfate 325 mg (65 mg 325 mg PO DAILY 10/16/21 01/20/22 12/10/21 History iron) tablet fluoxetine 20 mg capsule (Prozac) 20 mg PO QAM #30 caps 10/16/21 01/20/22 12/10/21 Rx lutein 25 mg-zeaxanthin 5 mg 1 cap PO DAILY 12/07/21 01/20/22 12/10/21 History capsule (Ocuvite Lutein) acetaminophen 300 mg-codeine 30 mg 1 tab PO Q8H PRN Pain #0 tabs 12/13/21 01/20/22 12/10/21 07:34 Rx tablet acetaminophen 500 mg tablet 500 mg PO Q6H PRN pain (scale 12/13/21 01/20/22 Unknown Rx (Tylenol Extra Strength) score 1-3) #0 tabs metoprolol succinate 25 mg 25 mg PO DAILY #30 tabs 12/13/21 01/20/22 Unknown Rx tablet,extended release 24 hr ammonium lactate 12 % lotion 1 applic topical BEDTIME 01/20/22 01/20/22 Unknown History dulaglutide 1.5 mg/0.5 mL 1.5 mg SUBCUT Q7D 01/20/22 01/20/22 Unknown History subcutaneous pen injector (Trulicity) promethazine-DM 6.25 mg-15 mg/5 mL 5 ml PO Q6H PRN Cough 01/20/22 01/20/22 Unknown History oral syrup trazodone 50 mg tablet 50 - 100 mg PO BEDTIME 01/20/22 01/20/22 Unknown History Allergies Allergy/AdvReac Type Severity Reaction Status Date / Time No Known Allergies Allergy Verified 01/15/22 13:10 PFSH Acute PFSH: Medical History Anxiety disorder, unspecified Blind Diabetes Diastolic CHF GERD (gastroesophageal reflux disease) Hepatitis C Hyperlipidemia Hypertension Major depressive disorder, recurrent, in full remission Psychiatric care Surgical History History of eye surgery Social History Smoking and tobacco status: never smoked Quit status (tobacco): has quit using tobacco Year quit tobacco: 1196 Former quit date comment: 2 PPD since age 16 Second hand smoke exposure: No Vitals/I&O/Wt Last Vital Signs Temp 99.0 F 01/20/22 14:25 Pulse 108 H 01/20/22 19:00 Resp 28 H 01/20/22 19:00 BP 132/67 01/20/22 14:30 Pulse Ox 95 01/20/22 19:00 O2 Del Method 01/20/22 14:25 O2 Flow Rate 2 01/20/22 14:25 Weight last 48 hrs Weight 107.501 kg Physical Exam Const: COMMON NORMALS: no acute distress and patient oriented x3 Eye: COMMON NORMALS: Equal, round and reactive pupils present and EOMs intact bilaterally Neck/C-Spine: COMMON NORMALS: no JVD Lymph: LYMPHATIC: no lymphadenopathy noted Resp: COMMON NORMALS: normal respiratory effort, No retractions, No use of accessory muscles and clear to auscultation bilaterally AUSCULTATION: clear to auscultation bilaterally Cardio: COMMON NORMALS: regular rate, regular rhythm, S1 normal heart sound present and S2 normal heart sound present RATE: regular rate RHYTHM: regular rhythm HEART SOUNDS: S1 normal heart sound present and S2 normal heart sound present GI: COMMON NORMALS: Normal to inspection, nondistended, normoactive bowel sounds present, Soft to palpation, non-tender, No hepatosplenomegaly present and no masses Extremity: NARRATIVE EXTREMITY EXAM: 2+ pitting edema bilateral extremity Neuro: COMMON NORMALS: patient oriented x3, CN's II-XII intact bilaterally, moves all extremities and no focal motor deficits Psych: COMMON NORMALS: mental status grossly normal Data : 01/20/22 14:55 01/20/22 14:55 Micro: Microbiology 01/20/22 16:34 Blood Culture - Preliminary Blood SPECIMEN COLLECTED 01/20/22 16:17 Blood Culture - Preliminary Blood SPECIMEN COLLECTED A&P Assessment and plan (1) Acute exacerbation of CHF (congestive heart failure): Status: Acute (2) Pericardial effusion: Status: Acute (3) Hypertension: Status: Chronic Qualifiers: Hypertension type: primary hypertension Qualified Code(s): I10 - Essential (primary) hypertension (4) Diabetes: Status: Chronic Qualifiers: Diabetes mellitus type: type 2 Diabetes mellitus care home insulin use: without longwall headgate operator use Diabetes mellitus complication status: with neurologic complications Diabetes mellitus complication detail: with polyneuropathy Qualified Code(s): E11.42 - Type 2 diabetes mellitus with diabetic polyneuropathy (5) Diastolic CHF: Status: Acute Qualifiers: Heart failure chronicity: acute on chronic Qualified Code(s): I50.33 - Acute on chronic diastolic (congestive) heart failure (6) Chronic kidney disease, stage 3a: Status: Chronic (7) Chest pain: Status: Acute (8) Shortness of breath: Status: Acute (9) Pleural effusion, bilateral: Status: Acute Plan Chest pain -Serial EKGs, serial troponins, telemetry monitoring -Continue aspirin, Plavix, beta-mora, statin -Nitro as needed for chest pain -Full code -Lovenox for DVT prophylaxis Acute on chronic systolic and diastolic CHF exacerbation Lasix 40 IV twice daily Maintain mag greater than 2, potassium greater than 4 Monitor creatinine, monitor electrolytes Large pericardial effusion -No hemodynamic compromise, stat cardiac echo has been ordered, cardiology has been consulted -ESR, CRP are elevated -Blood cultures, LARRY, rheumatoid factor Bilateral pleural effusions, as above Type 2 diabetes mellitus, low-dose sliding scale Attestations Medical Necessity Statement*: Patient requires hospitalization, inpatient, greater than 2 midnights, for CHF exacerbation, pericardial effusion, NISHI Coding Level of Care Code Acute Software Publisher for [facility] Fwd Diagnoses Acute exacerbation of CHF (congestive heart failure) I50.9 Pericardial effusion I31.3 Hypertension I10 Hypertension type: primary hypertension Diabetes E11.42 Diabetes mellitus type: type 2 Diabetes mellitus longwall headgate operator insulin use: without care home use Diabetes mellitus complication status: with neurologic complications Diabetes mellitus complication detail: with polyneuropathy Diastolic CHF I50.33 Heart failure chronicity: acute on chronic Chronic kidney disease, stage 3a N18.31 Chest pain R07.9 Shortness of breath R06.02 Pleural effusion, bilateral J90
[2022-01-20 21:42] LABS: Glucose Point of Care 197 mg/dL (70-110)
[2022-01-20 21:44] LABS: Procalcitonin 0.08 ng/mL (0-0.5)
[2022-01-20] MEDS: enoxaparin 40 mg/0.4 mL Syringe SUBCUT (22:07)
[2022-01-20] MEDS: magnesium sulfate premix 2 GM/50 ML PIGGYBACK IV (22:07)
[2022-01-20] MEDS: trazodone 50 mg Tablet PO (22:07)
[2022-01-20] MEDS: FUROsemide 10 mg/mL SDV 4mL 20 MG IVP (22:07)
[2022-01-21] VITALS (50 sets, daily range): BP systolic 95–149; BP diastolic 55–112; PULSE 85–104; RESP 15–32; TEMP 36.4–36.8; O2SAT 90–97
[2022-01-21 04:04] LABS: Basophils % 0.2 %; Hematocrit 31.3 % (37.0-47.0); Hemoglobin 9.6 g/dL (11.5-15.3); Lymphocytes # 0.5 10^3/uL (0.8-4.8); Lymphocytes % 4.9 %; Mean Corpuscular HGB Conc 30.7 g/dL (30.0-36.0); Mean Corpuscular Hemoglobin 27.7 pg (28.0-34.0); Mean Corpuscular Volume 90.5 fl (81-99); Mean Platelet Volume 9.5 fL (7.4-10.4); Monocytes # 0.2 10^3/uL (0.2-0.9); Monocytes % 1.6 %; Neutrophils # 9.58 10^3/uL (1.8-7.7); Neutrophils % 92.9 %; Nucleated Red Blood Cells % 0 %; Platelet Count 286 10^3/cmm (130-400); Red Blood Count 3.46 10^6/uL (4.1-5.3); Red Cell Distribution Width 13.9 % (12.1-15.1); White Blood Count 10.3 10^3/uL (4.0-10.0)
[2022-01-21 04:31] LABS: Estmated Average Glucose 146; Hemoglobin A1C 6.7 % (4.0-6.0)
[2022-01-21 04:42] LABS: Alanine Aminotransferase 9 U/L (0-33); Albumin Level 3.3 g/dL (3.5-5.2); Alkaline Phosphatase 103 U/L (35-105); Anion Gap 16.9 (5-19); Aspartate Amino Transferase 13 U/L (0-32); Blood Urea Nitrogen 26 mg/dL (8-23); Calcium 9.1 mg/dL (8.5-10.5); Carbon Dioxide 23 mmol/L (22-29); Chloride 99 mmol/L (98-107); Chol HDL Ratio 3.09 mg/dL (0.0-4.40); Cholesterol 105 mg/dL (0-200); Globulin 3.6 g/dL (1.3-4.6); Glucose 280 mg/dL (65-115); HDL Cholesterol 34 mg/dL (60-100); LDL Cholesterol Calculated 54 mg/dL (50-129); LDL HDL Ratio 1.59 RATIO (0.00-3.22); Magnesium 2.4 mg/dL (1.7-2.3); NT Pro B Type Natriuretic Pept 2198 pg/mL (0-450); Osmolality Calculated 293 mOsm/kg (285-295); Phosphorus 3.3 mg/dL (2.5-4.5); Potassium 4.9 mmol/L (3.5-5.1); Sodium 134 mmol/L (136-145); Thyroid Stimulating Hormone 0.33 uIU/mL (0.27-4.20); Total Bilirubin 0.3 mg/dL (0.15-1.2); Total Protein 6.9 g/dL (6.6-8.7); Triglycerides 83 mg/dL (0-150)
[2022-01-21 08:41] LABS: Glucose Point of Care 279 mg/dL (70-110)
[2022-01-21] MEDS: atorvastatin 40 mg Tablet 20 MG PO (09:22)
[2022-01-21] MEDS: amlodipine 10 mg Tablet PO (09:23)
[2022-01-21] MEDS: fluoxetine 20 mg Capsule PO (09:23)
[2022-01-21] MEDS: clopidogrel 75 mg Tablet PO (09:23)
[2022-01-21] MEDS: metoprolol succinate ER (24 HR) 25 mg Tablet PO (09:23)
[2022-01-21] MEDS: aspirin 81 mg EC Tablet PO (09:23)
[2022-01-21] MEDS: ferrous sulfate EC 325 mg Tablet PO (09:23)
[2022-01-21] MEDS: insulin lispro 100 unit/1 mL SUBCUT ×3 (09:24→17:50)
[2022-01-21] MEDS: BuSPIRONE 10 mg Tablet PO ×2 (09:24→17:50)
[2022-01-21] MEDS: predniSONE 20 mg Tablet 40 MG PO (09:24)
[2022-01-21] MEDS: FUROsemide 10 mg/mL SDV 4mL 20 MG IVP ×2 (09:25→23:12)
[2022-01-21] MEDS: pantoprazole DR 40 mg Tablet PO (09:33)
[2022-01-21 11:51] LABS: Glucose Point of Care 361 mg/dL (70-110)
--- NOTE | 2022-01-21 11:52 | P.CONIM_ITS ---
Providers/Reason For Consult Consulting Physician/Specialty*: Dr. Tirado, cardiology Reason for Consult*: Pericardial effusion Attending Physician: Arnav Morgan DO Primary Care Provider: Chidi Anaya DO History of Present Illness History of Present Illness Hyun Bowers is a 76 year old female with past medical history of hypertension, hyperlipidemia, type II diabetes mellitus, heart failure with preserved ejection fraction, history of carotid artery disease (less than 50% right carotid bulb and proximal ICA and moderate 50 to 75% stenosis in left carotid bulb and proximal ICA) and recent hospitalization for history of fall and decompensated congestive heart failure who presents to [facility] due to chest pain, shortness of breath, lower extremity edema.? Last hospitalization chlorthalidone was held due to elevated creatinine and since then she has noticed her legs have become more swollen and she is getting more shortness of breath.? She lives at assisted living and came to the hospital yesterday as she woke up with left parasternal chest pain, which improved with sitting up and leaning forward. On taking deep breath she experiences catching her breathing and starts coughing.? Denies any fevers, no chills, no cough, no lightheadedness, no dizziness. rapid COVID testing is negative. CRP 68. Baseline troponin T 18 at 2 hours 17.5 and at 6 hours 19.9. NT proBNP 2198. WBC of 13.5, hemoglobin 9.8, ESR 62. BUN 23 and creatinine 1.4 . lipid panel with total cholesterol 105, triglyceride 83, LDL 54 and HDL 34. TSH 0.33. She underwent CTA chest that was negative for pulmonary embolism showed cardiomegaly and large pericardial effusion along with coronary artery calcification bilateral lower lobe pleural effusion. Study was negative for right heart strain. I was asked to evaluate the patient with findings of large pericardial effusion on CTA chest. Review of Systems General: Reports: 10 or more systems reviewed and unremarkable except in HPI and below Card: Reports: chest pain, swelling of feet/ankles and orthopnea Resp: Reports: dyspnea GI: Denies: abdominal pain or hematochezia : Denies: hematuria Neuro: Denies: headache(s) Psych: Denies: anxiety or depression Medications/Allergies Home Medications Medication Instructions Recorded Confirmed Last Taken Type artifi.tears(hypromellose)(PF) 0.3 1 drop ophthalmic (eye) BEDTIME 07/10/19 01/20/22 Unknown History % eye drops PRN Dry Eyes azelastine 205.5 mcg (0.15 %) 1 spray intranasal BID PRN Nasal 07/10/19 01/20/22 Unknown History nasal spray Congestion bismuth subsalicylate 262 mg/15 mL 524 mg PO DAILY PRN Stomach 07/10/19 01/20/22 Unknown History oral suspension (Pepto-Bismol) clopidogrel 75 mg tablet 75 mg PO DAILY 07/10/19 01/20/22 12/10/21 History fluticasone propionate 50 2 spray intranasal DAILY PRN Nasal 07/10/19 01/20/22 12/10/21 History mcg/actuation nasal Congestion spray,suspension (Flonase Allergy Relief) lovastatin 40 mg tablet 40 mg PO DAILY 07/10/19 01/20/22 12/10/21 History magnesium hydroxide 400 mg/5 mL 30 - 60 ml PO DAILY PRN 07/10/19 01/20/22 Unknown History oral suspension (Milk of Magnesia) Constipation pantoprazole 20 mg tablet,delayed 20 mg PO DAILY 07/10/19 01/20/22 12/10/21 History release (Protonix) aspirin 81 mg tablet,delayed 81 mg PO DAILY 07/13/19 01/20/22 12/10/21 History release (Adult Low Dose Aspirin) amlodipine 10 mg tablet 10 mg PO DAILY 05/18/21 01/20/22 12/10/21 History alendronate 70 mg tablet 70 mg PO Q7D 10/16/21 01/20/22 12/08/21 History buspirone 10 mg tablet 10 mg PO BID #60 tabs 10/16/21 01/20/22 12/10/21 Rx ferrous sulfate 325 mg (65 mg 325 mg PO DAILY 10/16/21 01/20/22 12/10/21 History iron) tablet fluoxetine 20 mg capsule (Prozac) 20 mg PO QAM #30 caps 10/16/21 01/20/22 12/10/21 Rx lutein 25 mg-zeaxanthin 5 mg 1 cap PO DAILY 12/07/21 01/20/22 12/10/21 History capsule (Ocuvite Lutein) acetaminophen 300 mg-codeine 30 mg 1 tab PO Q8H PRN Pain #0 tabs 0701/20/22 12/10/21 07:34 Rx tablet acetaminophen 500 mg tablet 500 mg PO Q6H PRN pain (scale 12/13/21 01/20/22 Unknown Rx (Tylenol Extra Strength) score 1-3) #0 tabs metoprolol succinate 25 mg 25 mg PO DAILY #30 tabs 12/13/21 01/20/22 Unknown Rx tablet,extended release 24 hr ammonium lactate 12 % lotion 1 applic topical BEDTIME 01/20/22 01/20/22 Unknown History dulaglutide 1.5 mg/0.5 mL 1.5 mg SUBCUT Q7D 01/20/22 01/20/22 Unknown History subcutaneous pen injector (Trulicity) promethazine-DM 6.25 mg-15 mg/5 mL 5 ml PO Q6H PRN Cough 01/20/22 01/20/22 Unknown History oral syrup trazodone 50 mg tablet 50 - 100 mg PO BEDTIME 01/20/22 01/20/22 Unknown History Allergies Allergy/AdvReac Type Severity Reaction Status Date / Time No Known Allergies Allergy Verified 01/15/22 13:10 Current Medications Generic Name Dose Route Start Last Admin Trade Name Freq PRN Reason Stop Dose Admin Amlodipine Besylate 10 mg 01/21/22 09:00 01/21/22 09:23 Amlodipine 10 Mg Tablet PO 10 mg DAILY JIN Administration Aspirin 81 mg 01/21/22 09:00 01/21/22 09:23 Aspirin 81 Mg Ec Tablet PO 81 mg DAILY JIN Administration Atorvastatin Calcium 20 mg 01/21/22 09:00 01/21/22 09:22 Atorvastatin 40 Mg Tablet PO 20 mg DAILY JIN Administration Buspirone HCl 10 mg 01/21/22 09:00 01/21/22 09:24 Buspirone 10 Mg Tablet PO 10 mg BID JIN Administration Clopidogrel Bisulfate 75 mg 01/21/22 09:00 01/21/22 09:23 Clopidogrel 75 Mg Tablet PO 75 mg DAILY JIN Administration Enoxaparin Sodium 40 mg 01/20/22 21:00 01/20/22 22:07 Enoxaparin 40 Mg/0.4 Ml Syringe SUBCUT 40 mg Q24H JIN Administration Ferrous Sulfate 325 mg 01/21/22 09:00 01/21/22 09:23 Ferrous Sulfate Ec 325 Mg Tablet PO 325 mg DAILY JIN Administration Fluoxetine HCl 20 mg 01/21/22 06:00 01/21/22 09:23 Fluoxetine 20 Mg Capsule PO 20 mg QAM JIN Administration Furosemide 20 mg 01/20/22 21:07 01/21/22 09:25 Furosemide 10 Mg/Ml Sdv 4ml IVP 20 mg Q12H JIN Administration Insulin Human Lispro 0 unit 01/21/22 08:00 01/21/22 09:24 Insulin Lispro 100 Unit/1 Ml SUBCUT 8 unit TIDWM JIN Administration Protocol Metoprolol Succinate 25 mg 01/21/22 09:00 01/21/22 09:23 Metoprolol Succinate Er (24 Hr) 25 Mg Tablet PO 25 mg DAILY JIN Administration Pantoprazole Sodium 40 mg 01/21/22 09:00 01/21/22 09:[address] 40 Mg Tablet PO 40 mg DAILY JIN Administration Prednisone 40 mg 01/21/22 09:00 01/21/22 09:24 Prednisone 20 Mg Tablet PO 40 mg DAILY JIN Administration Trazodone HCl 50 mg 01/20/22 21:00 01/20/22 22:07 Trazodone 50 Mg Tablet PO 50 mg BEDTIME JIN Administration PFSH Acute PFSH: Medical History Anxiety disorder, unspecified Blind Diabetes Diastolic CHF GERD (gastroesophageal reflux disease) Hepatitis C Hyperlipidemia Hypertension Major depressive disorder, recurrent, in full remission Psychiatric care Surgical History History of eye surgery Social History Smoking and tobacco status: never smoked Quit status (tobacco): has quit using tobacco Year quit tobacco: 1196 Former quit date comment: 2 PPD since age 16 Second hand smoke exposure: No Vitals/I&O/Wt Last Vital Signs Temp 97.7 F 01/21/22 08:00 Pulse 91 01/21/22 10:00 Resp 20 H 01/21/22 10:00 BP 140/67 01/21/22 10:00 Pulse Ox 96 01/21/22 10:00 O2 Del Method 01/20/22 23:09 O2 Flow Rate 3 01/21/22 08:00 01/20/22 01/21/22 01/21/22 22:59 06:59 14:59 Intake Total 360 / 360 Output Total 500 / 500 Balance -140 / -140 Weight last 48 hrs Weight 237 lb Physical Exam Narrative: GENERAL: obese woman sitting in chair in no acute distress HEENT: Extraocular movement intact. No pallor or icterus. NECK: central trachea, No JVD, No carotid bruit. CARDIOVASCULAR SYSTEM: S1-S2 regular. No murmur rubs or gallops heard. RESPIRATORY SYSTEM: Chest clear to auscultation. No wheezes rhonchi or rubs heard. No use of accessory muscles. ABDOMEN: Soft, nontender and nondistended. Normal bowel sounds present. EXTREMITIES: No cyanosis or edema. No signs of chronic venous insufficiency. CATTLE EXAMINER: Patient is alert oriented ?3. No focal neurological deficits. Data : 01/21/22 03:15 01/21/22 03:15 Micro: Microbiology 01/20/22 16:34 Blood Culture - Preliminary Blood SPECIMEN COLLECTED 01/20/22 16:17 Blood Culture - Preliminary Blood SPECIMEN COLLECTED A&P Assessment and plan (1) Chest pain: possibly related to pericarditis, somewhat pleuritic pain relieved on sitting forward -elevated ESR and CRP and new pericardial effusion -started on prednisone -will consider adding colchicine Status: Acute (2) Acute pericardial effusion: Status: Acute (3) Acute exacerbation of CHF (congestive heart failure): cautious diuresis Status: Acute (4) Hypertension: Status: Chronic Qualifiers: Hypertension type: primary hypertension Qualified Code(s): I10 - Essential (primary) hypertension (5) Diabetes: Status: Chronic Qualifiers: Diabetes mellitus complication detail: with polyneuropathy Diabetes mellitus complication status: with neurologic complications Diabetes mellitus [facility] insulin use: without equipment operator intermodal yard use Diabetes mellitus type: type 2 Qualified Code(s): E11.42 - Type 2 diabetes mellitus with diabetic polyneuropathy Coding Level of Care Code Acute Superintendent Of Schools for [facility] Diagnoses Chest pain R07.9 Acute pericardial effusion I30.9 Acute exacerbation of CHF (congestive heart failure) I50.9 Hypertension I10 Hypertension type: primary hypertension Diabetes E11.42 Diabetes mellitus complication detail: with polyneuropathy Diabetes mellitus complication status: with neurologic complications Diabetes mellitus [facility] insulin use: without [facility] use Diabetes mellitus type: type 2
--- NOTE | 2022-01-21 17:41 | PM.PN ---
Subjective Subjective: Patient seen sitting in a chair. Reports that she is doing better. She was able to get up with a walker and says she is doing pretty good for me Vitals/I&O/Wt Last Vital Signs Temp 97.6 F 01/21/22 13:30 Pulse 87 01/21/22 15:00 Resp 22 H 01/21/22 15:00 BP 97/65 01/21/22 15:00 Pulse Ox 94 01/21/22 15:00 O2 Del Method 01/21/22 13:30 O2 Flow Rate 2 01/21/22 13:30 01/21/22 01/21/22 01/21/22 06:59 14:59 22:59 Intake Total 600 / 600 Output Total 950 / 950 150 / 1100 Balance -350 / -350 -150 / -500 Weight last 48 hrs Weight 107.501 kg Physical Exam Narrative: No acute distress. Obese. A few scraps of food on her gown. Heart regular normal S1-S2 without murmurs clicks gallops or rubs lungs overall diminished breath sounds but clear Abdomen obese soft nontender nondistended positive bowel sounds Extremities nonpitting edema noted. Data : 01/21/22 03:15 01/21/22 03:15 Micro: Microbiology 01/20/22 16:17 Blood Culture - Preliminary Blood NEGATIVE TO DATE 01/20/22 16:34 Blood Culture - Preliminary Blood NEGATIVE TO DATE A&P Assessment and plan (1) Acute exacerbation of CHF (congestive heart failure): Status: Acute (2) Pericardial effusion: Status: Acute (3) Hypertension: Status: Chronic Qualifiers: Hypertension type: primary hypertension Qualified Code(s): I10 - Essential (primary) hypertension (4) Diabetes: Status: Chronic Qualifiers: Diabetes mellitus type: type 2 Diabetes mellitus [facility] insulin use: without [facility] use Diabetes mellitus complication status: with neurologic complications Diabetes mellitus complication detail: with polyneuropathy Qualified Code(s): E11.42 - Type 2 diabetes mellitus with diabetic polyneuropathy (5) Diastolic CHF: Status: Acute Qualifiers: Heart failure chronicity: acute on chronic Qualified Code(s): I50.33 - Acute on chronic diastolic (congestive) heart failure (6) Chronic kidney disease, stage 3a: Status: Chronic (7) Chest pain: Status: Acute (8) Shortness of breath: Status: Acute (9) Pleural effusion, bilateral: Status: Acute Plan Chest pain Patient on telemetry. Troponins negative, appears to be in atrial flutter with 3-1 block. Pericardial effusion. Echocardiogram confirmed large. Hemodynamically stable. Both ERCP and CRP are elevated. Blood cultures were drawn LARRY and rheumatoid factor. Started on prednisone. Cardiology consult appreciated. Recommend colchicine -Continue aspirin, Plavix, beta-mora, statin -Nitro as needed for chest pain -Full code-discussed with patient. Also called daughter and discussed. They have had no prior discussions and no DPOA or living will paperwork. Encouraged to do so. -Lovenox for DVT prophylaxis Acute on chronic systolic and diastolic CHF exacerbation Lasix decreased to 20 mg IV twice daily per cardiology for gentle diuresis. Maintain mag greater than 2, potassium greater than 4 Monitor creatinine, monitor electrolytes Bilateral pleural effusions, as above Type 2 diabetes mellitus, low-dose sliding scale Patient with very limited mobility and currently living in assisted living. Mention to daughter they may want a look at long-term placement. Attestations Medical Necessity Statement*: Patient requires hospitalization, inpatient, greater than 2 midnights, for CHF exacerbation, pericardial effusion, NISHI Coding Level of Care Code Acute Flexo Operator for [facility] Fwd Diagnoses Acute exacerbation of CHF (congestive heart failure) I50.9 Pericardial effusion I31.3 Hypertension I10 Hypertension type: primary hypertension Diabetes E11.42 Diabetes mellitus type: type 2 Diabetes mellitus long distance billing operator insulin use: without long distance billing operator use Diabetes mellitus complication status: with neurologic complications Diabetes mellitus complication detail: with polyneuropathy Diastolic CHF I50.33 Heart failure chronicity: acute on chronic Chronic kidney disease, stage 3a N18.31 Chest pain R07.9 Shortness of breath R06.02 Pleural effusion, bilateral J90
[2022-01-21 17:49] LABS: Glucose Point of Care 255 mg/dL (70-110)
--- NOTE | 2022-01-21 18:27 | PC.NURSE ---
SHift SUmmary: Uneventful shift Patient was up frequently to use the bedside commode and up to a chair for breakfast and lunch, 1 person assist required and use of walker. Patient has remained alert and oriented to person, place, time, and situation. Urine output has been 1100mL.
[2022-01-21 22:21] LABS: Glucose Point of Care 300 mg/dL (70-110)
[2022-01-21] MEDS: enoxaparin 40 mg/0.4 mL Syringe SUBCUT (23:11)
[2022-01-21] MEDS: trazodone 50 mg Tablet PO (23:11)
[2022-01-22] VITALS (18 sets, daily range): BP systolic 120–143; BP diastolic 60–82; PULSE 82–93; RESP 20–28; TEMP 36.6–36.7; O2SAT 94–96
--- NOTE | 2022-01-22 04:00 | PC.NURSE ---
Pt. transferred to room 275 bed 1 via bed with belongings. Tolerated well. REport given to Luz Marina JIMENEZ to assume care.
[2022-01-22 04:37] LABS: Hematocrit 29.6 % (37.0-47.0); Hemoglobin 9.1 g/dL (11.5-15.3); Lymphocytes # 0.4 10^3/uL (0.8-4.8); Lymphocytes % 3.7 %; Mean Corpuscular HGB Conc 30.7 g/dL (30.0-36.0); Mean Corpuscular Volume 91.1 fl (81-99); Mean Platelet Volume 9.7 fL (7.4-10.4); Monocytes # 0.6 10^3/uL (0.2-0.9); Monocytes % 4.9 %; Neutrophils # 10.22 10^3/uL (1.8-7.7); Neutrophils % 90.8 %; Nucleated Red Blood Cells % 0 %; Platelet Count 311 10^3/cmm (130-400); Red Blood Count 3.25 10^6/uL (4.1-5.3); Red Cell Distribution Width 13.7 % (12.1-15.1); White Blood Count 11.3 10^3/uL (4.0-10.0)
[2022-01-22 05:02] LABS: Anion Gap 16.8 (5-19); Blood Urea Nitrogen 38 mg/dL (8-23); Calcium 8.9 mg/dL (8.5-10.5); Carbon Dioxide 24 mmol/L (22-29); Chloride 96 mmol/L (98-107); Glucose 340 mg/dL (65-115); Osmolality Calculated 296 mOsm/kg (285-295); Potassium 4.8 mmol/L (3.5-5.1); Sodium 132 mmol/L (136-145)
[2022-01-22] MEDS: fluoxetine 20 mg Capsule PO (05:11)
[2022-01-22 06:40] LABS: Glucose Point of Care 388 mg/dL (70-110)
[2022-01-22] MEDS: pantoprazole DR 40 mg Tablet PO (08:15)
[2022-01-22] MEDS: clopidogrel 75 mg Tablet PO (08:16)
[2022-01-22] MEDS: atorvastatin 40 mg Tablet 20 MG PO (08:16)
[2022-01-22] MEDS: aspirin 81 mg EC Tablet PO (08:16)
[2022-01-22] MEDS: ferrous sulfate EC 325 mg Tablet PO (08:16)
[2022-01-22] MEDS: metoprolol succinate ER (24 HR) 25 mg Tablet PO (08:16)
[2022-01-22] MEDS: predniSONE 20 mg Tablet 40 MG PO (08:16)
[2022-01-22] MEDS: FUROsemide 10 mg/mL SDV 4mL 20 MG IVP (08:16)
[2022-01-22] MEDS: insulin lispro 100 unit/1 mL SUBCUT ×3 (08:21→18:13)
[2022-01-22] MEDS: BuSPIRONE 10 mg Tablet PO ×2 (08:21→18:13)
[2022-01-22] MEDS: amlodipine 10 mg Tablet PO (08:21)
[2022-01-22 08:23] LABS: Glucose Point of Care 323 mg/dL (70-110)
--- NOTE | 2022-01-22 09:37 | P.PN_ITS ---
Subjective Subjective: Intermittent chest pains Medications: Reviewed: Yes Vitals/I&O/Wt Last Vital Signs Temp 97.8 F 01/22/22 08:00 Pulse 88 01/22/22 08:00 Resp 23 H 01/22/22 08:00 BP 142/67 01/22/22 08:00 Pulse Ox 95 01/22/22 08:00 O2 Del Method 01/22/22 08:00 O2 Flow Rate 1 01/22/22 08:00 01/21/22 01/22/22 01/22/22 22:59 06:59 14:59 Intake Total 200 / 800 550 / 1350 Output Total 400 / 1350 250 / 250 Balance -200 / -550 550 / 0 -250 / -250 Weight last 48 hrs Weight 237 lb Physical Exam Narrative: GENERAL: obese woman sitting in chair in no acute distress HEENT: Extraocular movement intact. No pallor or icterus. NECK: central trachea, No JVD, No carotid bruit. CARDIOVASCULAR SYSTEM: S1-S2 regular. No murmur rubs or gallops heard. RESPIRATORY SYSTEM: Chest clear to auscultation. No wheezes rhonchi or rubs heard. No use of accessory muscles. ABDOMEN: Soft, nontender and nondistended. Normal bowel sounds present. EXTREMITIES: No cyanosis, 1+ edema. No signs of chronic venous insufficiency. RUBBER PROCESS HAND: Patient is alert oriented ?3. No focal neurological deficits. Data : 01/22/22 03:28 01/22/22 03:28 Micro: Microbiology 01/20/22 16:17 Blood Culture - Preliminary Blood NEGATIVE TO DATE 01/20/22 16:34 Blood Culture - Preliminary Blood NEGATIVE TO DATE A&P Assessment and plan (1) Chest pain: possibly related to pericarditis, somewhat pleuritic pain relieved on sitting forward -elevated ESR and CRP and new pericardial effusion -started on prednisone and colchicine added. Status: Acute (2) Acute pericardial effusion: Status: Acute (3) Acute exacerbation of CHF (congestive heart failure): cautious diuresis Status: Acute (4) Hypertension: Status: Chronic Qualifiers: Hypertension type: primary hypertension Qualified Code(s): I10 - Essential (primary) hypertension (5) Diabetes: Status: Chronic Qualifiers: Diabetes mellitus complication detail: with polyneuropathy Diabetes mellitus complication status: with neurologic complications Diabetes mellitus manager long term care insulin use: without manager long term care use Diabetes mellitus type: type 2 Qualified Code(s): E11.42 - Type 2 diabetes mellitus with diabetic polyneuropathy Plan Anemia Attestations Medical Necessity Statement*: Patient requires hospitalization, inpatient, greater than 2 midnights, for CHF exacerbation, pericardial effusion, NISHI Coding Level of Care Code Acute 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
[2022-01-22 11:54] LABS: COMPLEMENT COMPONENT C3C 188 mg/dL (83-193); COMPLEMENT COMPONENT C4C 57 mg/dL (15-57)
[2022-01-22 12:47] LABS: Glucose Point of Care 293 mg/dL (70-110)
[2022-01-22 12:54] LABS: COMPLEMENT, TOTAL (CH50) >60 U/mL (31-60)
[2022-01-22 14:13] LABS: Iron 15 ug/dL (37-145); Total Iron Binding Capacity 214 mcg/dl; Unsaturated Iron Binding 199 ug/dL (112-347)
[2022-01-22 14:24] LABS: Folate Level 12.7 ng/mL (4.8-37.3)
[2022-01-22 14:29] LABS: Vitamin B12 355 pg/mL (232-1245)
[2022-01-22] MEDS: colchicine 0.6 mg Tablet 1.2 MG PO (14:58)
--- NOTE | 2022-01-22 15:00 | PC.NURSE ---
Cardiology at bedside during administration of colchicine instructions to give half dose 1 pill of 2 removed administered 0.6mg PO
[2022-01-22] MEDS: FUROsemide 10 mg/mL SDV 2mL 20 MG IVP (16:18)
[2022-01-22 16:37] LABS: CENTROMERE B ANTIBODY <1.0 NEG AI (<1.0 NEG); JO-1 ANTIBODY <1.0 NEG AI (<1.0 NEG); RNP ANTIBODY <1.0 NEG AI (<1.0 NEG); SCL-70 ANTIBODY <1.0 NEG AI (<1.0 NEG); SJOGREN'S ANTIBODY (SS-A) <1.0 NEG AI (<1.0 NEG); SM ANTIBODY <1.0 NEG AI (<1.0 NEG); SS-B <1.0 NEG AI (<1.0 NEG)
[2022-01-22 17:07] LABS: Glucose Point of Care 266 mg/dL (70-110)
--- NOTE | 2022-01-22 17:55 | P.PN_ITS ---
Subjective Subjective: Hospital course, labs appreciated. Examination patient sitting up in chair. Denies any nausea, Dehn, headache. Denies any chest pain. Has remained hemodynamically stable and afebrile. Medications: Reviewed: Yes Vitals/I&O/Wt Last Vital Signs Temp 98.0 F 01/22/22 15:51 Pulse 92 01/22/22 15:51 Resp 23 H 01/22/22 15:51 BP 143/69 01/22/22 15:51 Pulse Ox 95 01/22/22 15:51 O2 Del Method 01/22/22 12:00 O2 Flow Rate 0 01/22/22 15:51 01/22/22 01/22/22 01/22/22 06:59 14:59 22:59 Intake Total 550 / 1350 400 / 400 Output Total 750 / 750 300 / 1050 Balance 550 / 0 -750 / -750 100 / -650 Physical Exam Const: COMMON NORMALS: no acute distress and patient oriented x3 Eye: COMMON NORMALS: Equal, round and reactive pupils present and EOMs intact bilaterally PUPIL: Yes Equal, round and reactive pupils present Neck/C-Spine: COMMON NORMALS: no JVD Lymph: LYMPHATIC: no lymphadenopathy noted Resp: COMMON NORMALS: normal respiratory effort, No retractions, No use of accessory muscles and clear to auscultation bilaterally AUSCULTATION: clear to auscultation bilaterally Cardio: COMMON NORMALS: no JVD, regular rate, regular rhythm, S1 normal heart sound present and S2 normal heart sound present RATE: regular rate RHYTHM: regular rhythm HEART SOUNDS: S1 normal heart sound present and S2 normal heart sound present GI: COMMON NORMALS: Normal to inspection, nondistended, normoactive bowel sounds present, Soft to palpation, non-tender, No hepatosplenomegaly present and no masses PALPATION: Yes Soft to palpation and Yes No hepatosplenomegaly present Extremity: NARRATIVE EXTREMITY EXAM: 2+ pitting edema bilateral extremity Neuro: COMMON NORMALS: patient oriented x3, CN's II-XII intact bilaterally, moves all extremities and no focal motor deficits Psych: COMMON NORMALS: mental status grossly normal Data : 01/22/22 03:28 01/22/22 03:28 Micro: Microbiology 01/20/22 16:17 Blood Culture - Preliminary Blood NEGATIVE TO DATE 01/20/22 16:34 Blood Culture - Preliminary Blood NEGATIVE TO DATE A&P Assessment and plan (1) Acute exacerbation of CHF (congestive heart failure): Status: Acute (2) Pericardial effusion: Status: Acute (3) Hypertension: Status: Chronic Qualifiers: Hypertension type: primary hypertension Qualified Code(s): I10 - Essential (primary) hypertension (4) Diabetes: Status: Chronic Qualifiers: Diabetes mellitus type: type 2 Diabetes mellitus [facility] use: without [facility] use Diabetes mellitus complication status: with neurologic complications Diabetes mellitus complication detail: with polyneuropathy Qualified Code(s): E11.42 - Type 2 diabetes mellitus with diabetic polyneuropathy (5) Diastolic CHF: Status: Acute Qualifiers: Heart failure chronicity: acute on chronic Qualified Code(s): I50.33 - Acute on chronic diastolic (congestive) heart failure (6) Chronic kidney disease, stage 3a: Status: Chronic (7) Chest pain: Status: Acute (8) Shortness of breath: Status: Acute (9) Pleural effusion, bilateral: Status: Acute (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 Troponins negative, appears to be in atrial flutter with 3-1 block. Pericardial effusion. Echocardiogram confirmed large. Hemodynamically stable. Both ERCP and CRP are elevated. Blood cultures were drawn LARRY and rheumatoid factor. Started on prednisone. Cardiology consult appreciated. Recommend colchicine -Continue aspirin, Plavix, beta-mora, statin -Nitro as needed for chest pain -Full code-discussed with patient. Also called daughter and discussed. They have had no prior discussions and no DPOA or living will paperwork. Encouraged to do so. -Lovenox for DVT prophylaxis Acute on chronic systolic and diastolic CHF exacerbation Lasix decreased to 20 mg IV twice daily per cardiology for gentle diuresis. Maintain mag greater than 2, potassium greater than 4 Monitor creatinine, monitor electrolytes Bilateral pleural effusions, as above Type 2 diabetes mellitus, low-dose sliding scale Patient with very limited mobility and currently living in assisted living. Mention to daughter they may want a look at long-term placement. Plan for the day: Continue with IV Lasix. Start on colchicine 1.2 mg once followed by 0.6 daily. Continue with prednisone. Recheck ESR and CRP in AM. Continue with prednisone. Check respiratory viral panel. Check iron panel, vitamin B12, folate level. Replete vitamin B12. Maintain mag over 2, potassium over 4 Attestations Medical Necessity Statement*: Patient requires further hospitalization for management of shortness of breath secondary to congestive heart failure, moderate pericardial effusion in setting of pericarditis Time Spent in Patient Care: Greater than 35 minutes Coding Level of Care Code Acute Traffic Manager for [facility] Diagnoses Acute exacerbation of CHF (congestive heart failure) I50.9 Pericardial effusion I31.3 Hypertension I10 Hypertension type: primary hypertension Diabetes E11.42 Diabetes mellitus type: type 2 Diabetes mellitus director long term care insulin use: without [facility] use Diabetes mellitus complication status: with neurologic complications Diabetes mellitus complication detail: with polyneuropathy Diastolic CHF I50.33 Heart failure chronicity: acute on chronic Chronic kidney disease, stage 3a N18.31 Chest pain R07.9 Shortness of breath R06.02 Pleural effusion, bilateral J90 Blind H54.7
[2022-01-22] MEDS: cyanocobalamin 1,000 mcg/mL SDV 1000 MCG IM (18:12)
[2022-01-22] MEDS: enoxaparin 40 mg/0.4 mL Syringe SUBCUT (20:21)
[2022-01-22] MEDS: trazodone 50 mg Tablet PO (20:21)
[2022-01-22 21:18] LABS: Glucose Point of Care 271 mg/dL (70-110)
[2022-01-23] VITALS (7 sets, daily range): BP systolic 130–146; BP diastolic 60–96; PULSE 79–87; RESP 23–27; TEMP 36.3–36.6; O2SAT 94–98
[2022-01-23 03:21] LABS: Hematocrit 29.8 % (37.0-47.0); Hemoglobin 9.2 g/dL (11.5-15.3); Lymphocytes # 0.7 10^3/uL (0.8-4.8); Lymphocytes % 7.6 %; Mean Corpuscular HGB Conc 30.9 g/dL (30.0-36.0); Mean Corpuscular Hemoglobin 27.3 pg (28.0-34.0); Mean Corpuscular Volume 88.4 fl (81-99); Mean Platelet Volume 9.6 fL (7.4-10.4); Monocytes # 0.5 10^3/uL (0.2-0.9); Monocytes % 5.3 %; Neutrophils # 7.72 10^3/uL (1.8-7.7); Neutrophils % 86.9 %; Nucleated Red Blood Cells % 0 %; Platelet Count 362 10^3/cmm (130-400); Red Blood Count 3.37 10^6/uL (4.1-5.3); Red Cell Distribution Width 13.6 % (12.1-15.1); White Blood Count 8.9 10^3/uL (4.0-10.0)
[2022-01-23 03:49] LABS: Erythrocyte Sedimentation Rate 62 mm/hr (0-15)
[2022-01-23 03:51] LABS: Alanine Aminotransferase 31 U/L (0-33); Albumin Level 3.5 g/dL (3.5-5.2); Alkaline Phosphatase 110 U/L (35-105); Anion Gap 14.3 (5-19); Aspartate Amino Transferase 45 U/L (0-32); Blood Urea Nitrogen 37 mg/dL (8-23); C Reactive Protein 36.3 mg/L (0.0-4.9); Calcium 9.3 mg/dL (8.5-10.5); Carbon Dioxide 27 mmol/L (22-29); Chloride 98 mmol/L (98-107); Globulin 3.7 g/dL (1.3-4.6); Glucose 232 mg/dL (65-115); Osmolality Calculated 296 mOsm/kg (285-295); Potassium 4.3 mmol/L (3.5-5.1); Sodium 135 mmol/L (136-145); Total Bilirubin 0.3 mg/dL (0.15-1.2); Total Protein 7.2 g/dL (6.6-8.7)
[2022-01-23] MEDS: fluoxetine 20 mg Capsule PO (05:29)
[2022-01-23 06:11] LABS: Glucose Point of Care 225 mg/dL (70-110)
[2022-01-23] MEDS: predniSONE 20 mg Tablet 40 MG PO (08:10)
[2022-01-23] MEDS: FUROsemide 10 mg/mL SDV 2mL 20 MG IVP (08:10)
[2022-01-23] MEDS: insulin lispro 100 unit/1 mL SUBCUT ×2 (08:10→12:15)
[2022-01-23] MEDS: metoprolol succinate ER (24 HR) 25 mg Tablet PO (08:11)
[2022-01-23] MEDS: aspirin 81 mg EC Tablet PO (08:11)
[2022-01-23] MEDS: amlodipine 10 mg Tablet PO (08:11)
[2022-01-23] MEDS: clopidogrel 75 mg Tablet PO (08:11)
[2022-01-23] MEDS: cyanocobalamin 1,000 mcg Tablet 500 MCG PO (08:11)
[2022-01-23] MEDS: atorvastatin 40 mg Tablet 20 MG PO (08:12)
[2022-01-23] MEDS: BuSPIRONE 10 mg Tablet PO (08:12)
[2022-01-23] MEDS: pantoprazole DR 40 mg Tablet PO (08:15)
[2022-01-23] MEDS: ferrous sulfate EC 325 mg Tablet PO (08:15)
[2022-01-23] MEDS: colchicine 0.6 mg Tablet PO (08:18)
--- NOTE | 2022-01-23 11:47 | P.PN_ITS ---
Subjective Subjective: Intermittent chest pains with coughing; feels better Medications: Reviewed: Yes Vitals/I&O/Wt Last Vital Signs Temp 97.5 F L 01/23/22 11:43 Pulse 84 01/23/22 11:43 Resp 27 H 01/23/22 11:43 BP 139/96 01/23/22 11:43 Pulse Ox 96 01/23/22 11:43 O2 Del Method 01/23/22 07:43 O2 Flow Rate 0 01/22/22 15:51 01/22/22 01/23/22 01/23/22 22:59 06:59 14:59 Intake Total 400 / 400 480 / 480 Output Total 800 / 1550 900 / 2450 Balance -400 / -1150 -900 / -2050 480 / 480 Physical Exam Narrative: GENERAL: obese woman sitting in chair in no acute distress HEENT: Extraocular movement intact. No pallor or icterus. NECK: central trachea, No JVD, No carotid bruit. CARDIOVASCULAR SYSTEM: S1-S2 regular. No murmur rubs or gallops heard. RESPIRATORY SYSTEM: Chest clear to auscultation. No wheezes rhonchi or rubs heard. No use of accessory muscles. ABDOMEN: Soft, nontender and nondistended. Normal bowel sounds present. EXTREMITIES: No cyanosis, trace-1+ edema. No signs of chronic venous insuffic iency. GLUE SPREADER: Patient is alert oriented ?3. No focal neurological deficits. Data : 01/23/22 02:03 01/23/22 02:03 A&P Assessment and plan (1) Chest pain: possibly related to pericarditis, somewhat pleuritic pain relieved on sitting forward -elevated ESR and CRP and new pericardial effusion - on prednisone and colchicine. Status: Acute (2) Acute pericardial effusion: Moderate pericardial effusion on last echo -repeat limited echo to assess pericardial effusion Status: Acute (3) Acute exacerbation of CHF (congestive heart failure): cautious diuresis Status: Acute (4) Hypertension: Status: Chronic Qualifiers: Hypertension type: primary hypertension Qualified Code(s): I10 - Essential (primary) hypertension (5) Diabetes: Status: Chronic Qualifiers: Diabetes mellitus complication detail: with polyneuropathy Diabetes mellitus complication status: with neurologic complications Diabetes mellitus penitentiary insulin use: without penitentiary use Diabetes mellitus type: type 2 Qualified Code(s): E11.42 - Type 2 diabetes mellitus with diabetic polyneuropathy Plan Anemia Attestations Medical Necessity Statement*: As per primary team Coding Level of Care Code Acute 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
[2022-01-23 11:48] LABS: Glucose Point of Care 190 mg/dL (70-110)
--- NOTE | 2022-01-23 12:22 | USCV_ITS ---
Hyun Bowers Age: 76 Gender: F : 1945 Exam Date: 01/23/2022 14:46 Ordering Phys: Anupama Tirado MD ([email or web address]) Technologist: Viji Samaniego Exam Location: [facility] [place] Indication: PERICARDIAL EFFUSION BP: / HR: Rhythm: Sinus Technical Quality: Adequate MEASUREMENTS (Male / Female) Normal Values FINDINGS Left Ventricle Right Ventricle Right Atrium Left Atrium Mitral Valve Aortic Valve Tricuspid Valve Pulmonic Valve Pericardium Aorta IVC CONCLUSIONS 1. This is a technically difficult study. 2. Normal left liver size and systolic function. Left upper ejection fraction estimated at 65%. No regional wall motion abnormality. 3. Normal right ventricle size and systolic function. 4. Small to moderate circumferential pericardial effusion. No evidence of hemodynamic compromise. 5. Normal-sized inferior vena cava with greater than 50% respiratory variation. 6. When compared to previous study dated 01/20/2022, pericardial effusion hasdecreased in size. Anupama Tirado MD (Electronically Signed) Final Date: 24 January 2022 12:11 S
--- NOTE | 2022-01-23 13:33 | PM.DCS ---
Discharge Providers Date of Admission: 01/20/22 19:30 Date of Discharge: January 23, 2022 Attending Provider at Admission: Ubaldo Augustin MD Attending Provider at Discharge: Sid Cortez MD Consults: Cardiology: Dr. Tirado Primary Care Provider: Chidi Anaya DO Diagnoses at Discharge Discharge Diagnosis (1) Chest pain: Status: Acute (2) Acute pericardial effusion: Status: Acute (3) Acute exacerbation of CHF (congestive heart failure): Status: Acute (4) Hypertension: Status: Chronic Qualifiers: Hypertension type: primary hypertension Qualified Code(s): I10 - Essential (primary) hypertension (5) Diabetes: Status: Chronic Qualifiers: Diabetes mellitus type: type 2 Diabetes mellitus jail insulin use: without adjunct faculty for medical terminology use Diabetes mellitus complication status: with neurologic complications Diabetes mellitus complication detail: with polyneuropathy Qualified Code(s): E11.42 - Type 2 diabetes mellitus with diabetic polyneuropathy Reason for Visit Reason for Visit: CHEST PAIN Hospital Course Hospital Course Hyun Bowers is a 76 year old female with past medical history of hypertension, hyperlipidemia, type II diabetes mellitus, heart failure with preserved ejection fraction, history of carotid artery disease (less than 50% right carotid bulb and proximal ICA and moderate 50 to 75% stenosis in left carotid bulb and proximal ICA) and recent hospitalization for history of fall and decompensated congestive heart failure who presents to [facility] due to chest pain, shortness of breath, lower extremity edema.? Last hospitalization chlorthalidone was held due to elevated creatinine and since then she has noticed her legs have become more swollen and she is getting more shortness of breath.? She lives at assisted living and came to the hospital yesterday as she woke up with left parasternal chest pain, which improved with sitting up and leaning forward.? On taking deep breath she experiences catching her breathing and starts coughing.? Denies any fevers, no chills, no cough, no lightheadedness, no dizziness.? rapid COVID testing is negative. CRP 68.? Baseline troponin T 18 at 2 hours 17.5 and at 6 hours 19.9.? NT proBNP 2198.? WBC of 13.5, hemoglobin 9.8, ESR 62.? BUN 23 and creatinine 1.4 . lipid panel with total cholesterol 105, triglyceride 83, LDL 54 and HDL 34.? TSH 0.33.? She underwent CTA chest that was negative for pulmonary embolism showed cardiomegaly and large pericardial effusion along with coronary artery calcification bilateral lower lobe pleural effusion.? Study was negative for right heart strain. Patient was admitted to hospital further evaluation and management. Echocardiogram was done which showed EF of 60% without regional wall motion abnormality, small to moderate circumferential pericardial effusion along with dilated IVC. She was started on IV diuresis gently. It is believed her symptoms of pericardial effusion and chest pain being relieved on sitting up is possibly secondary to pericarditis. Respiratory viral panel is awaited. She was started on prednisone and colchicine. She responded well to the treatment and has been back to her baseline. She was seen by physical therapy. Her kidney functions have constantly been improving and currently down to 1.2 of creatinine. CRP has come down to 36.3. She has been discharged hemodynamic stable condition back to assisted living on colchicine 0.6 mg daily, steroid taper, oral Lasix 20 mg twice daily. She is to follow-up with her primary care provider within next 1 week and with Annemarie Ocasio from cardiology heart services within 2 weeks. Repeat limited echocardiogram to monitor pericardial effusion has been done prior to discharge. Physical Exam Const: COMMON NORMALS: no acute distress and patient oriented x3 Eye: COMMON NORMALS: Equal, round and reactive pupils present and EOMs intact bilaterally PUPIL: Yes Equal, round and reactive pupils present Neck/C-Spine: COMMON NORMALS: no JVD Lymph: LYMPHATIC: no lymphadenopathy noted Resp: COMMON NORMALS: normal respiratory effort, No retractions, No use of accessory muscles and clear to auscultation bilaterally AUSCULTATION: clear to auscultation bilaterally Cardio: COMMON NORMALS: no JVD, regular rate, regular rhythm, S1 normal heart sound present and S2 normal heart sound present RATE: regular rate RHYTHM: regular rhythm HEART SOUNDS: S1 normal heart sound present and S2 normal heart sound present GI: COMMON NORMALS: Normal to inspection, nondistended, normoactive bowel sounds present, Soft to palpation, non-tender, No hepatosplenomegaly present and no masses PALPATION: Yes Soft to palpation and Yes No hepatosplenomegaly present Extremity: NARRATIVE EXTREMITY EXAM: 2+ pitting edema bilateral extremity Neuro: COMMON NORMALS: patient oriented x3, CN's II-XII intact bilaterally, moves all extremities and no focal motor deficits Psych: COMMON NORMALS: mental status grossly normal Discharge Data Studies Completed and Pending Completed Studies During Hospitalization Category Date Time Status CTA chest [CT angio chest PE protcl [id number]] Stat Cat Scan 01/20/22 15:50 Completed XR chest 1V portable [id number] Stat Exams 01/20/22 14:36 Completed CV. echo complete* [id number] Stat Ultrasound 01/20/22 18:16 Completed Pending at discharge Category Date Time Status LARRY Profile Rheumatology Stat Lab 01/20/22 22:40 Results Blood Culture Stat Lab 01/20/22 16:34 Results Respiratory Viral Panel PCR Stat Lab 01/22/22 16:48 Received CV. echo limited [id number] Routine Ultrasound 01/23/22 12:22 Ordered Radiology Impressions Chest X-Ray 01/20/22 14:36 IMPRESSION: 1. Left lower lobe pleural effusion. 2. Cardiomegaly for projection 3. Low lung volumes Chest CTA 01/20/22 15:50 IMPRESSION: 1. Negative for pulmonary embolism. 2. Cardiomegaly 3. Large pericardial effusion. 4. Coronary artery calcifications are seen. 5. Bilateral lower lobe pleural effusions. 6. Negative for right heart strain Echocardiogram: ?CONCLUSIONS ?1. Normal left ventricular size, systolic function with no?regional wall motion abnormalities. Left ventricular ejection?fraction is estimated at 60 %. ?2. Small to moderate circumferential pericardial effusion. No?evidence of hemodynamic compromise based on this study. ?3. Dilated inferior vena cava with decreased respiratory?variation. ?4. When compared to study dated 12/11/2021, there is small to?moderate circumferential pericardial effusion now. ?Anupama Tirado MD ?(Electronically Signed) ?Final Date:? ? ? 20 January 2022 ? 21:48 Laboratory Results WBC 8.9 10^3/uL (4.0-10.0) 01/23/22 02:03 RBC 3.37 10^6/uL (4.1-5.3) L 01/23/22 02:03 Hgb 9.2 g/dL (11.5-15.3) L 01/23/22 02:03 Hct 29.8 % (37.0-47.0) L 01/23/22 02:03 MCV 88.4 fl (81-99) 01/23/22 02:03 MCH 27.3 pg (28.0-34.0) L 01/23/22 02:03 MCHC 30.9 g/dL (30.0-36.0) 01/23/22 02:03 RDW 13.6 % (12.1-15.1) 01/23/22 02:03 Plt Count 362 10^3/cmm (130-400) 01/23/22 02:03 MPV 9.6 fL (7.4-10.4) 01/23/22 02:03 Neut % (Auto) 86.9 % 01/23/22 02:03 Lymph % (Auto) 7.6 % 01/23/22 02:03 [place] % (Auto) 5.3 % 01/23/22 02:03 Eos % (Auto) 0.0 % 01/23/22 02:03 Baso % (Auto) 0.0 % 01/23/22 02:03 Neut # (Auto) 7.72 10^3/uL (1.8-7.7) H 01/23/22 02:03 Lymph # (Auto) 0.7 10^3/uL (0.8-4.8) L 01/23/22 02:03 [place] # (Auto) 0.5 10^3/uL (0.2-0.9) 01/23/22 02:03 Eos # (Auto) 0.0 10^3/uL (0.0-0.8) 01/23/22 02:03 Baso # (Auto) 0.0 10^3/uL (0.0-0.1) 01/23/22 02:03 Nucleated RBC % (auto) 0 % 01/23/22 02:03 Nucleated RBCs # 0.0 /100WBC 01/23/22 02:03 ESR 62 mm/hr (0-15) H 01/23/22 02:03 PT 15.50 SECONDS (12.1-14.9) H 01/21/22 03:15 INR 1.20 (0.8-1.2) 01/21/22 03:15 APTT 35.4 SECONDS (23.9-36.7) 01/20/22 14:55 D-Dimer 4.25 ug/mIFEU (0-0.59) H 01/20/22 14:55 Sodium 135 mmol/L (136-145) L 01/23/22 02:03 Potassium 4.3 mmol/L (3.5-5.1) 01/23/22 02:03 Chloride 98 mmol/L (98-107) 01/23/22 02:03 Carbon Dioxide 27 mmol/L (22-29) 01/23/22 02:03 Anion Gap 14.3 (5-19) 01/23/22 02:03 BUN 37 mg/dL (8-23) H 01/23/22 02:03 Creatinine 1.2 mg/dL (0.5-0.9) H 01/23/22 02:03 GFR Calculation Not Reportable 01/23/22 02:03 Glucose 232 mg/dL (65-115) H 01/23/22 02:03 POC Glucose 190 mg/dL (70-110) H 01/23/22 11:41 Estimat Average Glucose 146 01/21/22 03:15 Hemoglobin A1c 6.7 % (4.0-6.0) H 01/21/22 03:15 Calculated Osmolality 296 mOsm/kg (285-295) H 01/23/22 02:03 Lactic Acid 1.3 mmol/L (0.5-2.2) 01/20/22 14:55 Calcium 9.3 mg/dL (8.5-10.5) 01/23/22 02:03 Phosphorus 3.3 mg/dL (2.5-4.5) 01/21/22 03:15 Magnesium 2.0 mg/dL (1.7-2.3) 01/23/22 02:03 Iron 15 ug/dL (37-145) L 01/22/22 03:28 TIBC 214 mcg/dl 01/22/22 03:28 % Saturation 7.0 % (20-50) L 01/22/22 03:28 Unsat Iron Binding 199 ug/dL (112-347) 01/22/22 03:28 Total Bilirubin 0.3 mg/dL (0.15-1.2) 01/23/22 02:03 AST 45 U/L (0-32) H 01/23/22 02:03 ALT 31 U/L (0-33) 01/23/22 02:03 Alkaline Phosphatase 110 U/L (35-105) H 01/23/22 02:03 Troponin T Baseline 18 ng/L (0-10) H 01/20/22 16:34 Troponin T 120 Minute 17.56 ng/L (0-10) H 01/20/22 18:39 Delta Troponin T -0.44 ABS# (0-10) L 01/20/22 18:39 Troponin T Hi Sens 6Hr 19.90 ng/L (0-10) H 01/20/22 22:40 Troponin T Hi Sens 6Hr Delta 1.90 ng/L (0-12) 01/20/22 22:40 C-Reactive Protein 36.3 mg/L (0.0-4.9) H 01/23/22 02:03 NT-Pro-B Natriuret Pep 2198 pg/mL (0-450) H 01/21/22 03:15 NT-Pro-B Natriuret Pep Cancelled 01/21/22 03:15 Total Protein 7.2 g/dL (6.6-8.7) 01/23/22 02:03 Albumin 3.5 g/dL (3.5-5.2) 01/23/22 02:03 Globulin 3.7 g/dL (1.3-4.6) 01/23/22 02:03 Triglycerides 83 mg/dL (0-150) 01/21/22 03:15 Triglycerides Cancelled 01/21/22 03:15 Cholesterol 105 mg/dL (0-200) 01/21/22 03:15 Cholesterol Cancelled 01/21/22 03:15 LDL Cholesterol, Calc 54 mg/dL (50-129) 01/21/22 03:15 LDL Cholesterol, Calc Cancelled 01/21/22 03:15 HDL Cholesterol 34 mg/dL (60-100) L 01/21/22 03:15 HDL Cholesterol Cancelled 01/21/22 03:15 LDL/HDL Ratio 1.59 RATIO (0.00-3.22) 01/21/22 03:15 LDL/HDL Ratio Cancelled 01/21/22 03:15 Cholesterol/HDL Ratio 3.09 mg/dL (0.0-4.40) 01/21/22 03:15 Cholesterol/HDL Ratio Cancelled 01/21/22 03:15 Lipase 7 U/L (13-60) L 01/20/22 14:55 Vitamin B12 355 pg/mL (232-1245) 01/22/22 03:28 Folate 12.7 ng/mL (4.8-37.3) 01/22/22 13:27 Procalcitonin 0.08 ng/mL (0-0.5) 01/20/22 14:55 TSH 0.33 uIU/mL (0.27-4.20) 01/21/22 03:15 Rheumatoid Factor 20.0 IU/mL (0-14) H 01/20/22 22:40 NAILA-1 Antibody <1.0 neg AI (<1.0 NEG) 01/20/22 22:40 SS-A Antibody <1.0 neg AI (<1.0 NEG) 01/20/22 22:40 SS-B Antibody <1.0 neg AI (<1.0 NEG) 01/20/22 22:40 Sm ([place]) Antibody <1.0 neg AI (<1.0 NEG) 01/20/22 22:40 PROVER Antibody <1.0 neg AI (<1.0 NEG) 01/20/22 22:40 Scl-70 Antibody <1.0 neg AI (<1.0 NEG) 01/20/22 22:40 Centromere B Antibody <1.0 neg AI (<1.0 NEG) 01/20/22 22:40 Complement C3c 188 mg/dL (83-193) 01/20/22 22:40 Complement C4c 57 mg/dL (15-57) 01/20/22 22:40 CH50 Classical Pathway >60 U/mL (31-60) H 01/20/22 22:40 SARS-CoV-2 Ag (Rapid) Negative (Negative) 01/20/22 15:33 Vitals Last Vital Signs Temp 97.5 F L 01/23/22 11:43 Pulse 84 01/23/22 11:43 Resp 27 H 01/23/22 11:43 BP 139/96 01/23/22 11:43 Pulse Ox 96 01/23/22 11:43 O2 Del Method 01/23/22 07:43 O2 Flow Rate 0 01/22/22 15:51 Discharge Plan Discharge Patient Disposition: Home Condition: Stable Prescriptions: New prednisone 20 mg Tablet See Taper PO DAILY Qty: 30 0RF Taper: predniSONE 60-10 40 mg Daily for 5 Days and 0 Hour 30 mg Daily for 5 Days and 0 Hour 20 mg Daily for 5 Days and 0 Hour 10 mg Daily for 5 Days and 0 Hour colchicine 0.6 mg Tablet 0.6 mg PO DAILY 30 Days Qty: 30 0RF cyanocobalamin (vitamin B-12) [Vitamin B-12] 1,000 mcg Tablet 500 mcg PO DAILY Qty: 30 0RF furosemide [Lasix] 20 mg tablet 20 mg PO BID Qty: 60 0RF Continued aspirin [Adult Low Dose Aspirin] 81 mg tablet,delayed release (DR/EC) 81 mg PO DAILY amlodipine 10 mg tablet 10 mg PO DAILY azelastine 0.15 % (205.5 mcg) spray,non-aerosol 1 spray INTRANASAL BID PRN (Reason: Nasal Congestion) pantoprazole [Protonix] 20 mg tablet,delayed release (DR/EC) 20 mg PO DAILY clopidogrel 75 mg tablet 75 mg PO DAILY bismuth subsalicylate [Pepto-Bismol] 262 mg/15 mL suspension 524 mg PO DAILY PRN (Reason: Stomach) artifi.tears(hypromellose)(PF) 0.3 % drops 1 drop ophthalmic (eye) BEDTIME PRN (Reason: Dry Eyes) lovastatin 40 mg tablet 40 mg PO DAILY magnesium hydroxide [Milk of Magnesia] 400 mg/5 mL suspension 30 - 60 ml PO DAILY PRN (Reason: Constipation) fluticasone propionate [Flonase Allergy Relief] 50 mcg/actuation spray,suspension 2 spray INTRANASAL DAILY PRN (Reason: Nasal Congestion) ferrous sulfate 325 mg (65 mg iron) tablet 325 mg PO DAILY alendronate 70 mg tablet 70 mg PO Q7D Label Comments: on fridays Rx Instructions: ON FRIDAYS buspirone 10 mg tablet 10 mg PO BID Qty: 60 3RF fluoxetine [Prozac] 20 mg capsule 20 mg PO QAM Qty: 30 3RF acetaminophen-codeine 300-30 mg Tablet 1 tab PO Q8H MDD 3 tabs PRN (Reason: Pain) Qty: 0 0RF acetaminophen [Tylenol Extra Strength] 500 mg Tablet 500 mg PO Q6H MDD 4 tabs PRN (Reason: pain (scale score 1-3)) Qty: 0 0RF metoprolol succinate 25 mg tablet extended release 24 hr 25 mg PO DAILY Qty: 30 0RF lutein-zeaxanthin [Ocuvite Lutein 25] 25-5 mg Capsule 1 cap PO DAILY promethazine-DM 6.25-15 mg/5 mL Syrup 5 ml PO Q6H PRN (Reason: Cough) ammonium lactate 12 % Lotion 1 applic TOPICAL BEDTIME trazodone 50 mg Tablet 50 - 100 mg PO BEDTIME Trulicity 1.5 mg/0.5 mL Pen Injector 1.5 mg SUBCUT Q7D Discharge Orders: Discharge Order (Routine); Ordered 01/23/22 Ordered By: Sid Cortez Referrals: Chidi Anaya DO [Primary Care Provider] - 4-7 days Annemarie Ocasio FNP [Nurse Practitioner] - 2 weeks Anupama Tirado MD [Physician] - 1 month Discharge Diet: Cardiac Discharge Activity: Resume usual activity and Increase activity as tolerated Patient Instructions: Opioid Safety Activity Restrictions/Additional Instructions: Please repeat CMP in 1 week. Follow-up with your primary care provider within next 1 week, with nurse practitioner from heart services in 2 weeks. Take prednisone steroid as directed being tapered down. Cardiovascular 0.6 mg daily. Discharge Attestations Time Spent in Discharge Care*: greater than 30 min Specific Discharge Activities: educating patient, discussing with pcp/other providers, discussing with therapeutic case manager/social workers/dc planners, documenting/other paperwork and evaluating patient/reviewing data Status at Discharge: Cognitive status at discharge: mildly impaired cognition, Behavioral status at discharge: cooperative, Functional status at discharge: uses cane/walker, Overall status at discharge: patient is progressing back to baseline Quality Metrics Clinical Quality Measures [ No reported AMI, CVA or VTE this stay] Coding Level of Care Code Acute Chg FW DC note History Comprehensive Exam Comprehensive Medical Decision Making High Complexity Diagnoses Chest pain R07.9 Acute pericardial effusion I30.9 Acute exacerbation of CHF (congestive heart failure) I50.9 Hypertension I10 Hypertension type: primary hypertension Diabetes E11.42 Diabetes mellitus type: type 2 Diabetes mellitus adjunct faculty for medical terminology insulin use: without adjunct faculty for medical terminology use Diabetes mellitus complication status: with neurologic complications Diabetes mellitus complication detail: with polyneuropathy
[2022-01-23 15:53] LABS: ANA SCREEN, IFA NEGATIVE (NEGATIVE)
[2022-01-23 15:57] LABS: THYROID PEROXIDASE ANTIBODIES <1 IU/mL (<9)
[2022-01-23 16:14] LABS: Glucose Point of Care 331 mg/dL (70-110)
--- NOTE | 2022-01-23 16:26 | PC.NURSE ---
discharge instructions given and explained.will return to assisted living facility.facility to transport.pt discharged at this time.
[2022-01-24 10:22] LABS: DNA AB (DS) CRITHIDIA,IFA NEGATIVE (NEGATIVE)
[2022-01-26 15:53] LABS: Adenovirus Not Detected (Not Detected); Human Metapneumovirus Not Detected (Not Detected); Human Parainflu Virus 1 Not Detected (Not Detected); Human Parainflu Virus 2 Not Detected (Not Detected); Human Parainflu Virus 3 Not Detected (Not Detected); Human Rsv A Not Detected (Not Detected); Influenza A Not Detected (Not Detected); Influenza B Not Detected (Not Detected); Rhinovirus/Enterovirus Not Detected (Not Detected)
== END 2022-01-23 16:31 | disposition home or self-care (01) | DRG 291 ==
LOC: ER 19:30 → ICU 20:00 → MEDSURG 01-22 04:27
PROVIDERS: Internal Medicine; Admitting Provider Family Medicine; Emergency Provider Emergency Medicine; PCP Internal Medicine; Visit Provider Student in an Organized Health Care Education/Training Program
DX: I13.0 Hypertensive heart and chronic kidney disease with heart failure and stage 1 through stage 4 chronic kidney disease, or unspecified chronic kidney disease (principal); I50.33 Acute on chronic diastolic (congestive) heart failure; I30.9 Acute pericarditis, unspecified; N17.9 Acute kidney failure, unspecified; N18.31 Chronic kidney disease, stage 3a; E11.22 Type 2 diabetes mellitus with diabetic chronic kidney disease; F33.42 Major depressive disorder, recurrent, in full remission; F41.9 Anxiety disorder, unspecified; E78.5 Hyperlipidemia, unspecified; E11.42 Type 2 diabetes mellitus with diabetic polyneuropathy; Z91.81 History of falling; H54.7 Unspecified visual loss; K21.9 Gastro-esophageal reflux disease without esophagitis; Z86.19 Personal history of other infectious and parasitic diseases; Z87.891 Personal history of nicotine dependence; I65.22 Occlusion and stenosis of left carotid artery; Z79.899 Other long term (current) drug therapy; Z79.891 Long term (current) use of opiate analgesic; Z79.02 Long term (current) use of antithrombotics/antiplatelets; Z79.82 Long term (current) use of aspirin
CPT/HCPCS: 36415; 36416; 71045; 71275; 80048; 80053; 80061; 82607; 82746; 82962; 83036; 83540; 83550; 83605; 83690; 83735; 83880; 84100; 84145; 84443; 84484; 85025; 85378; 85610; 85651; 85730; 86140; 86160; 86162; 86235; 86255; 86376; 86431; 87040; 87426; 87633; 93005; 93306; 93308; 94664; 96372; 96374; 97110; 97116; 97161; 97530; 99285; J1650; J1815; J1940; J2930; J3420; J3475; J7512; Q9967

== ENCOUNTER → 2022-02-01 12:58 | Outpatient (BNVA) | payer MEDICARE, MEDICAID, SELFPAY | PROVIDERS: PCP Internal Medicine; Visit Provider Podiatrist Foot & Ankle Surgery | DX: E11.621 Type 2 diabetes mellitus with foot ulcer (principal); L97.522 Non-pressure chronic ulcer of other part of left foot with fat layer exposed; M21.611 Bunion of right foot; M21.612 Bunion of left foot; M20.41 Other hammer toe(s) (acquired), right foot; M20.42 Other hammer toe(s) (acquired), left foot; L85.3 Xerosis cutis; M76.829 Posterior tibial tendinitis, unspecified leg; I73.9 Peripheral vascular disease, unspecified | CPT/HCPCS: 99213 ==

== ENCOUNTER → 2022-02-06 09:25 | Outpatient (BNVA) | payer MEDICARE, MEDICAID, SELFPAY | PROVIDERS: PCP Internal Medicine; Visit Provider Nurse Practitioner Family | DX: I13.0 Hypertensive heart and chronic kidney disease with heart failure and stage 1 through stage 4 chronic kidney disease, or unspecified chronic kidney disease (principal); E11.22 Type 2 diabetes mellitus with diabetic chronic kidney disease; N18.31 Chronic kidney disease, stage 3a; I50.32 Chronic diastolic (congestive) heart failure; Z87.891 Personal history of nicotine dependence; Z79.84 Long term (current) use of oral hypoglycemic drugs | CPT/HCPCS: 99213 ==

== ENCOUNTER 2022-02-16 09:28 | Emergency (ER) | payer MEDICARE, MEDICAID, SELFPAY ==
[2022-02-16] VITALS (8 sets, daily range): BP systolic 95–124; BP diastolic 57–72; PULSE 94–102; RESP 16–20; TEMP 36.6; O2SAT 94–97; BMI 38.2
--- NOTE | 2022-02-16 09:29 | XR_ITS ---
WS: [id number] XR chest 1V portable [id number] REASON FOR EXAM: cp FINDINGS: Compared to the examination of 01/20/2022 the cardiac silhouette with is less prominent and globular i n configuration which may be related to resolution of the pericardial effusion demonstrated on the CT of the chest 01/20/2022. Opacity of the lower left hemithorax is somewhat improved compared to 01/20/2022 indicating some resol ution of the left lower lung consolidation and left pleural effusion previously demonstrated on CT sc an of 01/20/2022. The right chest remains relatively clear with some clearing of the right costophrenic angle compared to the previous chest exam of 01/20/2022, possibly indicating decrease in previously demonstrated righ t pleural effusion. XR/XR chest 1V portable [id number] IMPRESSION: Abnormal chest with improvement compared to previous examination of 01/20/2022 a s above.
--- NOTE | 2022-02-16 09:29 | ECG_ITS ---
[facility] Test Date: 2022-02-16 Pat Name: Hyun Bowers Department: Room: Gender: Female Erp Implementation Consultant: : [id number] Requested By: Obdulia Mesa Order Number: [id number] Fátima MD: Anupama Tirado M.D. Measurements Intervals [place] Rate: 102 P: 71 ID: [id number] QRS: -24 QRSD: 104 T: 16 QT: 330 QTc: 430 Interpretive Statements SINUS TACHYCARDIA WITH OCCASIONAL SUPRAVENTRICULAR PREMATURE COMPLEXES POSSIBLE ANTERIOR MYOCARDIAL INFARCTION , OF INDETERMINATE AGE INFERIOR MYOCARDIAL INFARCTION , PROBABLY OLD Compared to ECG 01/20/2022 17:13:01 No significant changes Electronically Signed On 02-16-2022 13:42:35 CDT by Anupama Tirado M.D. [email or web address]
[2022-02-16 10:04] LABS: Basophils % 0.3 %; Eosinophils # 0.1 10^3/uL (0.0-0.8); Eosinophils % 1.7 %; Hematocrit 32.5 % (37.0-47.0); Hemoglobin 10.2 g/dL (11.5-15.3); Lymphocytes # 0.7 10^3/uL (0.8-4.8); Lymphocytes % 9.7 %; Mean Corpuscular HGB Conc 31.4 g/dL (30.0-36.0); Mean Corpuscular Hemoglobin 27.1 pg (28.0-34.0); Mean Corpuscular Volume 86.4 fl (81-99); Mean Platelet Volume 10.4 fL (7.4-10.4); Monocytes # 0.5 10^3/uL (0.2-0.9); Monocytes % 6.8 %; Neutrophils # 6.17 10^3/uL (1.8-7.7); Nucleated Red Blood Cells % 0 %; Platelet Count 256 10^3/cmm (130-400); Red Blood Count 3.76 10^6/uL (4.1-5.3); Red Cell Distribution Width 14.7 % (12.1-15.1); White Blood Count 7.6 10^3/uL (4.0-10.0)
--- NOTE | 2022-02-16 10:06 | PC.NURSE ---
PT PLACED ON CONTINUOUS NIBP, SPO2, AND CM
--- NOTE | 2022-02-16 10:18 | ED_ITS ---
HPI - Chest Pain General: Chief Complaint: Chest Pain Stated Complaint: CHEST PAIN Time Seen by Provider: 02/16/22 09:29 Source: patient and EMS Mode of arrival: EMS Limitations: no limitations History of Present Illness: 76-year-old female is here from [facility] states that this morning she is having some slight chest pain that is a sharp pain in the center of her chest [facility] states she had been confused as well here she is not confused she is answering all my questions appropriately is ANO x4 she denies any fever denies any shortness of breath states she is currently pain-free denies any worsening improving factors. Associated symptoms: Deny abdominal pain, dyspnea, fever(s), nausea or vomiting Review of Systems Const: Denies: fever(s), chills, body aches or change in appetite Eyes: Denies: blurry vision or eye discomfort ENMT: Denies: throat pain or dental pain Card: Reports: chest pain Resp: Denies: dyspnea GI: Denies: abdominal pain, nausea, vomiting or diarrhea : Denies: dysuria Musc: Denies: neck pain or back pain Skin/Breast: Denies: rash Neuro: Denies: headache(s) Psych: Denies: depression Ortiz/Lymph: Denies: easy bruising All/Imm: Denies: urticaria PFSH ED PFSH: Medical History Anxiety disorder, unspecified Blind Chronic kidney disease, stage 3a Diabetes Diastolic CHF GERD (gastroesophageal reflux disease) Hepatitis C Hyperlipidemia Hypertension Major depressive disorder, recurrent, in full remission Psychiatric care Surgical History History of eye surgery Social History Smoking and tobacco status: former smoker Quit status (tobacco): has quit using tobacco Year quit tobacco: 1196 Former quit date comment: 2 PPD since age 16 Second hand smoke exposure: No Physical Exam Const: COMMON NORMALS: no acute distress, patient oriented x3 and healthy appearing HENMT: COMMON NORMALS: normocephalic and atraumatic HEAD & SCALP: normocephalic and atraumatic Eye: COMMON NORMALS: Equal, round and reactive pupils present and EOMs intact bilaterally PUPIL: Yes Equal, round and reactive pupils present Neck/C-Spine: COMMON NORMALS: full ROM and supple Chest: COMMONS NORMALS: normal inspection of the chest and normal palpation of entire chest wall Resp: COMMON NORMALS: normal respiratory effort, No retractions, No use of ac cessory muscles and clear to auscultation bilaterally AUSCULTATION: clear to auscultation bilaterally Cardio: COMMON NORMALS: regular rate, regular rhythm and No murmurs present (Cardio) RATE: regular rate RHYTHM: regular rhythm GI: COMMON NORMALS: Normal to inspection, nondistended, normoactive bowel sounds present, Soft to palpation, non-tender and no masses PALPATION: Yes Soft to palpation Extremity: COMMON NORMALS: normal to inspection and full ROM Neuro: COMMON NORMALS: patient oriented x3, moves all extremities and no focal motor deficits Psych: COMMON NORMALS: mental status grossly normal, Normal thought process present and cooperative THOUGHT PROCESS: Normal thought process present Skin: COMMON NORMALS: no rashes or lesions noted and no wounds GENERAL SKIN EXAM: no rashes or lesions noted Course Vital Signs: Vital signs: Vital Signs Temperature 98 F 02/16/22 09:29 Pulse Rate 95 02/16/22 12:30 Respiratory Rate 20 H 02/16/22 12:30 Blood Pressure 101/59 02/16/22 12:30 Pulse Oximetry 94 02/16/22 12:30 Oxygen Delivery Me thod 02/16/22 12:30 [facility] - Chest Pain Medical Decision Making Patient presents here with chest pains atypical in nature he has been pain-free here patient's initial and repeat troponin here negative. Patient stable for discharge she is to follow-up PCP and return if worsening. Lab Data : 02/16/22 09:57 02/16/22 09:57 Radiology Impressions Chest X-Ray 02/16/22 09:29 IMPRESSION: Abnormal chest with improvement compared to previous examination of 01/20/2022 as above. Laboratory Results WBC 7.6 10^3/uL (4.0-10.0) 02/16/22 09:57 RBC 3.76 10^6/uL (4.1-5.3) L 02/16/22 09:57 Hgb 10.2 g/dL (11.5-15.3) L 02/16/22 09:57 Hct 32.5 % (37.0-47.0) L 02/16/22 09:57 MCV 86.4 fl (81-99) 02/16/22 09:57 MCH 27.1 pg (28.0-34.0) L 02/16/22 09:57 MCHC 31.4 g/dL (30.0-36.0) 02/16/22 09:57 RDW 14.7 % (12.1-15.1) 02/16/22 09:57 Plt Count 256 10^3/cmm (130-400) 02/16/22 09:57 MPV 10.4 fL (7.4-10.4) 02/16/22 09:57 Neut % (Auto) 81.0 % 02/16/22 09:57 Lymph % (Auto) 9.7 % 02/16/22 09:57 Pine % (Auto) 6.8 % 02/16/22 09:57 Eos % (Auto) 1.7 % 02/16/22 09:57 Baso % (Auto) 0.3 % 02/16/22 09:57 Neut # (Auto) 6.17 10^3/uL (1.8-7.7) 02/16/22 09:57 Lymph # (Auto) 0.7 10^3/uL (0.8-4.8) L 02/16/22 09:57 Pine # (Auto) 0.5 10^3/uL (0.2-0.9) 02/16/22 09:57 Eos # (Auto) 0.1 10^3/uL (0.0-0.8) 02/16/22 09:57 Baso # (Auto) 0.0 10^3/uL (0.0-0.1) 02/16/22 09:57 Nucleated RBC % (auto) 0 % 02/16/22 09:57 Nucleated RBCs # 0.0 /100WBC 02/16/22 09:57 Sodium 127 mmol/L (136-145) L 02/16/22 09:57 Potassium 4.1 mmol/L (3.5-5.1) 02/16/22 09:57 Chloride 90 mmol/L (98-107) L 02/16/22 09:57 Carbon Dioxide 24 mmol/L (22-29) 02/16/22 09:57 Anion Gap 17.1 (5-19) 02/16/22 09:57 BUN 26 mg/dL (8-23) H 02/16/22 09:57 Creatinine 1.6 mg/dL (0.5-0.9) H 02/16/22 09:57 GFR Calculation Not Reportable 02/16/22 09:57 Glucose 428 mg/dL (65-115) H 02/16/22 09:57 POC Glucose 298 mg/dL (70-110) H 02/16/22 11:57 Calculated Osmolality 287 mOsm/kg (285-295) 02/16/22 09:57 Calcium 8.6 mg/dL (8.5-10.5) 02/16/22 09:57 Total Bilirubin 0.4 mg/dL (0.15-1.2) 02/16/22 09:57 AST 18 U/L (0-32) 02/16/22 09:57 ALT 16 U/L (0-33) 02/16/22 09:57 Alkaline Phosphatase 138 U/L (35-105) H 02/16/22 09:57 Troponin T Baseline 38 ng/L (0-10) H 02/16/22 09:57 Troponin T 120 Minute 38.71 ng/L (0-10) H 02/16/22 12:34 Delta Troponin T 0.71 ABS# (0-10) 02/16/22 12:34 NT-Pro-B Natriuret Pep 2310 pg/mL (0-450) H 02/16/22 09:57 Total Protein 6.8 g/dL (6.6-8.7) 02/16/22 09:57 Albumin 2.4 g/dL (3.5-5.2) L 02/16/22 09:57 Globulin 4.4 g/dL (1.3-4.6) 02/16/22 09:57 EKG Data EKG 1: I personally reviewed and interpreted this EKG as follows: EKG interpretation date: 02/16/22 EKG interpretation time: 09:38 Interpretation: sinus tach hr [address] or t wave abnormalities qrs 104 qtc 389 Discharge Plan Discharge Patient Disposition: Home Clinical Impression: Chest pain Condition: Stable Prescriptions: No Action aspirin [Adult Low Dose Aspirin] 81 mg tablet,delayed release (DR/EC) 81 mg PO DAILY amlodipine 10 mg tablet 10 mg PO DAILY azelastine 0.15 % (205.5 mcg) spray,non-aerosol 1 spray INTRANASAL BID PRN (Reason: Nasal Congestion) pantoprazole [Protonix] 20 mg tablet,delayed release (DR/EC) 20 mg PO DAILY clopidogrel 75 mg tablet 75 mg PO DAILY bismuth subsalicylate [Pepto-Bismol] 262 mg/15 mL suspension 524 mg PO DAILY PRN (Reason: Stomach) artifi.tears(hypromellose)(PF) 0.3 % drops 1 drop ophthalmic (eye) BEDTIME PRN (Reason: Dry Eyes) lovastatin 40 mg tablet 40 mg PO DAILY magnesium hydroxide [Milk of Magnesia] 400 mg/5 mL suspension 30 - 60 ml PO DAILY PRN (Reason: Constipation) fluticasone propionate [Flonase Allergy Relief] 50 mcg/actuation spray,suspension 2 spray INTRANASAL DAILY PRN (Reason: Nasal Congestion) ferrous sulfate 325 mg (65 mg iron) tablet 325 mg PO DAILY alendronate 70 mg tablet 70 mg PO Q7D Label Comments: on fridays Rx Instructions: ON FRIDAYS buspirone 10 mg tablet 10 mg PO BID Qty: 60 2RF fluoxetine [Prozac] 20 mg capsule 20 mg PO QAM Qty: 30 2RF trazodone 50 mg tablet 50 - 100 mg PO BEDTIME PRN (Reason: insomnia) acetaminophen-codeine 300-30 mg Tablet 1 tab PO Q8H MDD 3 tabs PRN (Reason: Pain) Qty: 0 0RF acetaminophen [Tylenol Extra Strength] 500 mg Tablet 500 mg PO Q6H MDD 4 tabs PRN (Reason: pain (scale score 1-3)) Qty: 0 0RF metoprolol succinate 25 mg tablet extended release 24 hr 25 mg PO DAILY Qty: 30 0RF lutein-zeaxanthin [Ocuvite Lutein 25] 25-5 mg Capsule 1 cap PO DAILY promethazine-DM 6.25-15 mg/5 mL Syrup 5 ml PO Q6H PRN (Reason: Cough) ammonium lactate 12 % Lotion 1 applic TOPICAL BEDTIME Trulicity 1.5 mg/0.5 mL Pen Injector 1.5 mg SUBCUT Q7D furosemide [Lasix] 20 mg tablet 20 mg PO BID Qty: 60 0RF Discharge Orders: Discharge ED (Routine); Ordered 02/16/22 Ordered By: Obdulia Mesa Referrals: Chidi Anaya DO [Primary Care Provider] - Discharge Diet: Advance as tolerated Discharge Activity: Resume usual activity Patient Instructions: Chest Pain (ED) Coding Level of Care Code ED Operations And Maintenance Technican for Chg Fwd Exam Comprehensive
[2022-02-16 10:37] LABS: Troponin(5th) Baseline 38 ng/L (0-10)
[2022-02-16 10:47] LABS: Alanine Aminotransferase 16 U/L (0-33); Albumin Level 2.4 g/dL (3.5-5.2); Alkaline Phosphatase 138 U/L (35-105); Anion Gap 17.1 (5-19); Blood Urea Nitrogen 26 mg/dL (8-23); Calcium 8.6 mg/dL (8.5-10.5); Carbon Dioxide 24 mmol/L (22-29); Chloride 90 mmol/L (98-107); Globulin 4.4 g/dL (1.3-4.6); Glucose 428 mg/dL (65-115); NT Pro B Type Natriuretic Pept 2310 pg/mL (0-450); Osmolality Calculated 287 mOsm/kg (285-295); Potassium 4.1 mmol/L (3.5-5.1); Sodium 127 mmol/L (136-145); Total Bilirubin 0.4 mg/dL (0.15-1.2); Total Protein 6.8 g/dL (6.6-8.7)
[2022-02-16 10:48] LABS: Aspartate Amino Transferase 18 U/L (0-32)
[2022-02-16 11:01] LABS: Glucose Point of Care 446 mg/dL (70-110)
[2022-02-16 11:06] LABS: Glucose Point of Care 467 mg/dL (70-110)
[2022-02-16] MEDS: insulin regular-human 100 units/1 mL 8 UNIT IVP (11:09)
[2022-02-16 11:30] LABS: Glucose Point of Care 431 mg/dL (70-110)
--- NOTE | 2022-02-16 11:35 | ECG_ITS ---
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 Measurements Intervals Orwell Rate: 97 P: 0 OR: 200 QRS: -19 QRSD: 85 T: 15 QT: 316 QTc: 403 Interpretive Statements SINUS RHYTHM WITH SINUS ARRHYTHMIA MINIMAL VOLTAGE CRITERIA FOR LVH, CONSIDER NORMAL VARIANT ANTERIOR MYOCARDIAL INFARCTION , PROBABLY OLD INFERIOR MYOCARDIAL INFARCTION , PROBABLY OLD Compared to ECG 02/16/2022 09:38:17 Sinus tachycardia no longer present Myocardial infarct finding still present Electronically Signed On 02-17-2022 8:42:51 CDT by Anupama iTrado M.D. [email or web address] center [email or web address] medical specialty hospital - [id number]
[2022-02-16 12:00] LABS: Glucose Point of Care 298 mg/dL (70-110)
[2022-02-16 12:58] LABS: Troponin 5 2HR 38.71 ng/L (0-10); Troponin 5 2HR Delta 0.71 ABS# (0-10)
== END 2022-02-16 13:30 | disposition home or self-care (01) ==
PROVIDERS: Emergency Provider Emergency Medicine; PCP Internal Medicine
DX: R07.9 Chest pain, unspecified (principal); Z79.82 Long term (current) use of aspirin; E78.5 Hyperlipidemia, unspecified; K21.9 Gastro-esophageal reflux disease without esophagitis; I12.9 Hypertensive chronic kidney disease with stage 1 through stage 4 chronic kidney disease, or unspecified chronic kidney disease; E11.22 Type 2 diabetes mellitus with diabetic chronic kidney disease; N18.31 Chronic kidney disease, stage 3a
CPT/HCPCS: 36415; 36416; 71045; 80053; 82962; 83880; 84484; 85025; 93005; 96374; 99285; J1815

== ENCOUNTER → 2022-03-06 14:44 | Outpatient (BNVA) | payer MEDICARE, MEDICAID, SELFPAY | PROVIDERS: PCP Internal Medicine; Visit Provider Internal Medicine Cardiovascular Disease | DX: I13.0 Hypertensive heart and chronic kidney disease with heart failure and stage 1 through stage 4 chronic kidney disease, or unspecified chronic kidney disease (principal); E11.22 Type 2 diabetes mellitus with diabetic chronic kidney disease; Z79.84 Long term (current) use of oral hypoglycemic drugs; N18.31 Chronic kidney disease, stage 3a; I50.30 Unspecified diastolic (congestive) heart failure; Z87.891 Personal history of nicotine dependence; I31.39 Other pericardial effusion (noninflammatory); E78.5 Hyperlipidemia, unspecified | CPT/HCPCS: 99214 ==

== ENCOUNTER → 2022-05-23 08:38 | Outpatient (BNVA) | payer MEDICARE, MEDICAID, SELFPAY | PROVIDERS: PCP Internal Medicine; Visit Provider Podiatrist Foot & Ankle Surgery | DX: Z91.81 History of falling (principal); E11.42 Type 2 diabetes mellitus with diabetic polyneuropathy; M20.41 Other hammer toe(s) (acquired), right foot; M20.42 Other hammer toe(s) (acquired), left foot; L85.3 Xerosis cutis; I73.9 Peripheral vascular disease, unspecified; L97.522 Non-pressure chronic ulcer of other part of left foot with fat layer exposed; L60.3 Nail dystrophy; N18.31 Chronic kidney disease, stage 3a; E11.621 Type 2 diabetes mellitus with foot ulcer; M21.611 Bunion of right foot; M21.612 Bunion of left foot | CPT/HCPCS: 11042; 11721 ==

== ENCOUNTER 2022-05-26 17:29 | Emergency (ER) | payer MEDICARE, MEDICAID, SELFPAY ==
[2022-05-26] VITALS (8 sets, daily range): BP systolic 92–176; BP diastolic 53–93; PULSE 85–93; RESP 15–16; O2SAT 95–99
--- NOTE | 2022-05-26 17:31 | CTR_ITS ---
PROCEDURE INFORMATION: Exam: CT Head Without Contrast Exam date and time: 05/26/2022 5:59 PM Age: 76 years old Clinical indication: Injury or trauma; Fall; Blunt trauma (contusions or hematomas); Injury details: Hit back of head TECHNIQUE: Imaging protocol: Computed tomography of the head without contrast. Radiation optimization: All CT scans at this facility use at least one of these dose optimization techniques: automated exposure control; mA and/or kV adjustment per patient size (includes targeted exams where dose is matched to clinical indication); or iterative reconstruction. COMPARISON: CT head wo con* [id number] 12/10/2021 10:20 AM RADIATION DOSE METRICS: Total DLP (mGy-cm): 1139.9 FINDINGS: Brain: Mild to moderate diffuse white matter disease likely reflecting chronic microvascular ischemic changes. Cerebral ventricles: No ventriculomegaly. Paranasal sinuses: Visualized sinuses are unremarkable. No fluid levels. Mastoid air cells: Visualized mastoid air cells are well aerated. Bones/joints: Unremarkable. No acute fracture. Soft tissues: Unremarkable. CT/CT head wo con* [id number] IMPRESSION: Negative for intracranial hemorrhage or mass effect.
--- NOTE | 2022-05-26 17:52 | W.ED.DIZZY ---
Documented by User: Raza Laurent DO 05/28/22 06:24 HPI - Dizziness General: Chief Complaint: Dizziness Stated Complaint: HEAD PAIN S/P FALL Time Seen by Provider: 05/26/22 17:30 Source: patient Mode of arrival: EMS History of Present Illness: HPI Narrative: 76-year-old female presents emergency room after syncopal episode. She got up from seated position began to walk she is going to sit down on a chair had become lightheaded and dizzy fell hit her head on cabinet there was no full loss of consciousness. She is awake and alert at this time. She is on Plavix. She has a small occipital laceration. She answers questions appropriately denies difficulty speech or swallowing. She is currently on amlodipine and Lasix. Patient originally seen by Dr. Corral. This is a 76-year-old female presenting after getting up from a seated position. She was walking back from supper when she fell as she began to sit down in her chair. She was dizzy at the time. She struck her head on the bedside table MD elicited complaint: dizziness and lightheadedness Onset (ago): minute(s) Timing: gradual onset Severity: mild Description: lightheadedness, off-balance and difficulty walking Context: change in body position Exacerbating factors: change in body position Associated symptoms: Reports weakness; Denies change in hearing, chest pain, chills, cough, diaphoresis, ear pressure, fevers/chills, headache(s), malaise, nausea, nasal congestion, palpitations, rash, short of breath, syncope, tinnitus or vomiting Associated neuro symptoms: Deny confusion, difficulty speaking, dysphagia, diplopia, extremity weakness, facial numbness, facial weakness, gait changes, numbness in extremities or visual changes Review of Systems Const: Denies: fever(s), chills, fatigue, malaise or diaphoresis ENMT: Denies: throat pain, change in hearing, tinnitus or nasal congestion Card: Denies: chest pain, palpitations or syncope Resp: Denies: dyspnea, productive cough or non-productive cough GI: Denies: abdominal pain, nausea, vomiting or dysphagia : Denies: flank pain, difficulty voiding, dysuria, urinary frequency or urinary urgency Skin/Breast: Denies: rash or pruritus Neuro: Denies: headache(s), numbness in extremities or confusion PFS ED PFSH: Medical History Anxiety disorder, unspecified Blind Chronic kidney disease, stage 3a Diabetes Diastolic CHF GERD (gastroesophageal reflux disease) Hepatitis C Hyperlipidemia Hypertension Major depressive disorder, recurrent, in full remission Psychiatric care Surgical History History of eye surgery Social History Smoking and tobacco status: former smoker Quit status (tobacco): has quit using tobacco Year quit tobacco: 1196 Former quit date comment: 2 PPD since age 16 Second hand smoke exposure: No Physical Exam Const: GENERAL APPEARANCE: cooperative and comfortable ORIENTATION/CONSCIOUSNESS: Yes awake, Yes oriented to person, Yes oriented to place and Yes oriented to time HENMT: COMMON NORMALS: normocephalic and hearing grossly normal bilaterally HEAD & SCALP: normocephalic Resp: COMMON NORMALS: normal respiratory effort, No retractions, No use of accessory muscles and clear to auscultation bilaterally AUSCULTATION: clear to auscultation bilaterally Cardio: COMMON NORMALS: regular rate, regular rhythm and No murmurs present (Cardio) RATE: regular rate RHYTHM: regular rhythm GI: COMMON NORMALS: Soft to palpation and No hepatosplenomegaly present AUSCULTATION: Yes normoactive bowel sounds PALPATION: Yes Soft to palpation, No Tenderness to palpation present (GI), No Guarding due to palpation present (GI) and Yes No hepatosplenomegaly present Extremity: COMMON NORMALS: normal to inspection, capillary refill normal, no clubbing, cyanosis or edema, no calf tenderness and no pedal edema Neuro: SENSORIUM/ORIENTATION: Yes oriented to person, Yes oriented to place and Yes oriented to time Skin: COMMON NORMALS: no rashes or lesions noted GENERAL SKIN EXAM: no rashes or lesions noted Course Vital Signs: Vital signs: Vital Signs Pulse Rate 88 05/26/22 21:17 Respiratory Rate 16 05/26/22 21:17 Blood Pressure 146/93 05/26/22 21:20 Pulse Oximetry 97 05/26/22 21:17 Oxygen Delivery Me thod 05/26/22 17:31 MDM - Dizziness Medical Decision Making Patient here for 100 cc normal saline bolus labs pending CT head formal read is pending but I reviewed that I did not appreciate any active bleeding. Care signed out to Dr. Rincon at change of shift. See final notes for diagnosis and disposition. 76-year-old patient originally seen in checkup by Dr. Corral. This lady had fallen on her way back from supper. She struck her head. CT is negative. Her BMP shows a creatinine of 1.4 and a BUN of 25. CBC is evidently pending. After 500 mL fluid, she is significantly orthostatic, as her systolic pressure fell from 1 40-1 05 from sitting to standing she is given an extra liter of fluid. We will recheck following. On recheck of blood pressure, systolic blood pressure is significantly elevated on sitting position, but fell a bit on standing. Patient did get symptomatic. Suspect Norvasc in this patient is a potential culprit. We will have her stop the Norvasc for now, and check blood pressures. She will be placed on meclizine for dizziness, as BPPV or vestibular neuronitis are both in the differential Lab Data 05/26/22 18:[address] 05/26/22 17:31 IMPRESSION: Negative for intracranial hemorrhage or mass effect. Laboratory Results WBC 7.3 10^3/uL (4.0-10.0) 05/26/22 18:40 RBC 4.73 10^6/uL (4.1-5.3) 05/26/22 18:40 Hgb 13.3 g/dL (11.5-15.3) 05/26/22 18:40 Hct 41.7 % (37.0-47.0) 05/26/22 18:40 MCV 88.2 fl (81-99) 05/26/22 18:40 MCH 28.1 pg (28.0-34.0) 05/26/22 18:40 MCHC 31.9 g/dL (30.0-36.0) 05/26/22 18:40 RDW 15.3 % (12.1-15.1) H 05/26/22 18:40 Plt Count 227 10^3/cmm (130-400) 05/26/22 18:40 MPV 9.7 fL (7.4-10.4) 05/26/22 18:40 Neut % (Auto) 69.4 % 05/26/22 18:40 Lymph % (Auto) 21.2 % 05/26/22 18:40 [place] % (Auto) 6.8 % 05/26/22 18:40 Eos % (Auto) 1.8 % 05/26/22 18:40 Baso % (Auto) 0.7 % 05/26/22 18:40 Neut # (Auto) 5.08 10^3/uL (1.8-7.7) 05/26/22 18:40 Lymph # (Auto) 1.6 10^3/uL (0.8-4.8) 05/26/22 18:40 [place] # (Auto) 0.5 10^3/uL (0.2-0.9) 05/26/22 18:40 Eos # (Auto) 0.1 10^3/uL (0.0-0.8) 05/26/22 18:40 Baso # (Auto) 0.1 10^3/uL (0.0-0.1) 05/26/22 18:40 Nucleated RBC % (auto) 0 % 05/26/22 18:40 Nucleated RBCs # 0.0 /100WBC 05/26/22 18:40 Sodium 139 mmol/L (136-145) 05/26/22 18:40 Potassium 4.3 mmol/L (3.5-5.1) 05/26/22 18:40 Chloride 100 mmol/L (98-107) 05/26/22 18:40 Carbon Dioxide 29 mmol/L (22-29) 05/26/22 18:40 Anion Gap 14.3 (5-19) 05/26/22 18:40 BUN 25 mg/dL (8-23) H 05/26/22 18:40 Creatinine 1.4 mg/dL (0.5-0.9) H 05/26/22 18:40 GFR Calculation Not Reportable 05/26/22 18:40 Glucose 215 mg/dL (65-115) H 05/26/22 18:40 Calculated Osmolality 299 mOsm/kg (285-295) H 05/26/22 18:40 Calcium 9.8 mg/dL (8.5-10.5) 05/26/22 18:40 Total Bilirubin 0.3 mg/dL (0.15-1.2) 05/26/22 18:40 AST 13 U/L (0-32) 05/26/22 18:40 ALT 9 U/L (0-33) 05/26/22 18:40 Alkaline Phosphatase 118 U/L (35-105) H 05/26/22 18:40 Total Protein 7.5 g/dL (6.6-8.7) 05/26/22 18:40 Albumin 4.0 g/dL (3.5-5.2) 05/26/22 18:40 Globulin 3.5 g/dL (1.3-4.6) 05/26/22 18:40 Discharge Plan Discharge Patient Disposition: Home Clinical Impression: Dizziness, Orthostatic hypotension Condition: Stable Prescriptions: New meclizine 25 mg tablet 25 mg PO BID Qty: 14 0RF No Action aspirin [Adult Low Dose Aspirin] 81 mg tablet,delayed release (DR/EC) 81 mg PO DAILY azelastine 0.15 % (205.5 mcg) spray,non-aerosol 1 spray INTRANASAL BID PRN (Reason: Nasal Congestion) pantoprazole [Protonix] 20 mg tablet,delayed release (DR/EC) 20 mg PO DAILY clopidogrel 75 mg tablet 75 mg PO DAILY bismuth subsalicylate [Pepto-Bismol] 262 mg/15 mL suspension 524 mg PO DAILY PRN (Reason: Stomach) artifi.tears(hypromellose)(PF) 0.3 % drops 1 drop ophthalmic (eye) BEDTIME PRN (Reason: Dry Eyes) lovastatin 40 mg tablet 40 mg PO DAILY magnesium hydroxide [Milk of Magnesia] 400 mg/5 mL suspension 30 - 60 ml PO DAILY PRN (Reason: Constipation) fluticasone propionate [Flonase Allergy Relief] 50 mcg/actuation spray,suspension 2 spray INTRANASAL DAILY PRN (Reason: Nasal Congestion) ferrous sulfate 325 mg (65 mg iron) tablet 325 mg PO DAILY alendronate 70 mg tablet 70 mg PO Q7D Label Comments: on fridays Rx Instructions: ON FRIDAYS isosorbide mononitrate 30 mg tablet extended release 24 hr 30 mg PO DAILY furosemide 40 mg tablet 40 mg PO DIRECTED Qty: 97 3RF Rx Instructions: Take 40mg BID X1 week then decrease to 40mg daily buspirone 10 mg tablet 10 mg PO BID Qty: 60 3RF Rx Instructions: Take one tablet by mouth twice daily fluoxetine [Prozac] 20 mg capsule 20 mg PO QAM Qty: 30 3RF Rx Instructions: Take one capsule by mouth every morning trazodone 50 mg tablet See Rx Instructions PO DAILY PRN (Reason: insomnia) Qty: 30 3RF Rx Instructions: Take 1/2 to 1 tablet daily at bedtime, if needed for insomnia amlodipine 10 mg tablet 5 mg PO DAILY Qty: 50 3RF potassium chloride 20 mEq tablet extended release 20 meq PO DAILY Qty: 90 3RF acetaminophen-codeine 300-30 mg Tablet 1 tab PO Q8H MDD 3 tabs PRN (Reason: Pain) Qty: 0 0RF acetaminophen [Tylenol Extra Strength] 500 mg Tablet 500 mg PO Q6H MDD 4 tabs PRN (Reason: pain (scale score 1-3)) Qty: 0 0RF metoprolol succinate 25 mg tablet extended release 24 hr 25 mg PO DAILY Qty: 30 0RF lutein-zeaxanthin [Ocuvite Lutein 25] 25-5 mg Capsule 1 cap PO DAILY promethazine-DM 6.25-15 mg/5 mL Syrup 5 ml PO Q6H PRN (Reason: Cough) ammonium lactate 12 % Lotion 1 applic TOPICAL BEDTIME Trulicity 1.5 mg/0.5 mL Pen Injector 1.5 mg SUBCUT Q7D Discharge Orders: Discharge ED (Routine); Ordered 05/26/22 Ordered By: Jesús Rincon Referrals: Chidi Anaya, [Primary Care Provider] - Patient Instructions: Hypotension (ED), Dizziness (ED) Activity Restrictions/Additional Instructions: Stop amlodipine for now. Take blood pressures twice daily. If they are significantly elevated, amlodipine may be restarted, however blood pressure from sitting to standing should be checked prior to restarting the Norvasc. Medication as directed otherwise. Take for the next 3 days and then as needed. Coding Level of Care Code ED Maintenance Foreman for Chg Fwd Exam Detailed Documented by User: Jesús Rincon DO 05/26/22 21:57 HPI - Dizziness General: Chief Complaint: Dizziness Stated Complaint: HEAD PAIN S/P FALL Time Seen by Provider: 05/26/22 17:30 History of Present Illness: HPI Narrative: Patient originally seen by Dr. Corral. This is a 76-year-old female presenting after getting up from a seated position. She was walking back from supper when she fell as she began to sit down in her chair. She was dizzy at the time. She struck her head on the bedside table FORMERLY [facility], [facility]–1983 ED PFSH: Medical History Anxiety disorder, unspecified Blind Chronic kidney disease, stage 3a Diabetes Diastolic CHF GERD (gastroesophageal reflux disease) Hepatitis C Hyperlipidemia Hypertension Major depressive disorder, recurrent, in full remission Psychiatric care Surgical History History of eye surgery Social History Smoking and tobacco status: former smoker Quit status (tobacco): has quit using tobacco Year quit tobacco: 1196 Former quit date comment: 2 PPD since age 16 Second hand smoke exposure: No Course Vital Signs: Vital signs: Vital Signs Pulse Rate 88 05/26/22 21:17 Respiratory Rate 16 05/26/22 21:17 Blood Pressure 146/93 05/26/22 21:20 Pulse Oximetry 97 05/26/22 21:17 Oxygen Delivery Me thod 05/26/22 17:31 MDM - Dizziness Medical Decision Making 76-year-old patient originally seen in checkup by Dr. Corral. This lady had fallen on her way back from supper. She struck her head. CT is negative. Her BMP shows a creatinine of 1.4 and a BUN of 25. CBC is evidently pending. After 500 mL fluid, she is significantly orthostatic, as her systolic pressure fell from 1 40-1 05 from sitting to standing she is given an extra liter of fluid. We will recheck following. On recheck of blood pressure, systolic blood pressure is significantly elevated on sitting position, but fell a bit on standing. Patient did get symptomatic. Suspect Norvasc in this patient is a potential culprit. We will have her stop the Norvasc for now, and check blood pressures. She will be placed on meclizine for dizziness, as BPPV or vestibular neuronitis are both in the differential Lab Data 05/26/22 18:[address] 05/26/22 17:31 IMPRESSION: Negative for intracranial hemorrhage or mass effect. Laboratory Results WBC 7.3 10^3/uL (4.0-10.0) 05/26/22 18:40 RBC 4.73 10^6/uL (4.1-5.3) 05/26/22 18:40 Hgb 13.3 g/dL (11.5-15.3) 05/26/22 18:40 Hct 41.7 % (37.0-47.0) 05/26/22 18:40 MCV 88.2 fl (81-99) 05/26/22 18:40 MCH 28.1 pg (28.0-34.0) 05/26/22 18:40 MCHC 31.9 g/dL (30.0-36.0) 05/26/22 18:40 RDW 15.3 % (12.1-15.1) H 05/26/22 18:40 Plt Count 227 10^3/cmm (130-400) 05/26/22 18:40 MPV 9.7 fL (7.4-10.4) 05/26/22 18:40 Neut % (Auto) 69.4 % 05/26/22 18:40 Lymph % (Auto) 21.2 % 05/26/22 18:40 [place] % (Auto) 6.8 % 05/26/22 18:40 Eos % (Auto) 1.8 % 05/26/22 18:40 Baso % (Auto) 0.7 % 05/26/22 18:40 Neut # (Auto) 5.08 10^3/uL (1.8-7.7) 05/26/22 18:40 Lymph # (Auto) 1.6 10^3/uL (0.8-4.8) 05/26/22 18:40 [place] # (Auto) 0.5 10^3/uL (0.2-0.9) 05/26/22 18:40 Eos # (Auto) 0.1 10^3/uL (0.0-0.8) 05/26/22 18:40 Baso # (Auto) 0.1 10^3/uL (0.0-0.1) 05/26/22 18:40 Nucleated RBC % (auto) 0 % 05/26/22 18:40 Nucleated RBCs # 0.0 /100WBC 05/26/22 18:40 Sodium 139 mmol/L (136-145) 05/26/22 18:40 Potassium 4.3 mmol/L (3.5-5.1) 05/26/22 18:40 Chloride 100 mmol/L (98-107) 05/26/22 18:40 Carbon Dioxide 29 mmol/L (22-29) 05/26/22 18:40 Anion Gap 14.3 (5-19) 05/26/22 18:40 BUN 25 mg/dL (8-23) H 05/26/22 18:40 Creatinine 1.4 mg/dL (0.5-0.9) H 05/26/22 18:40 GFR Calculation Not Reportable 05/26/22 18:40 Glucose 215 mg/dL (65-115) H 05/26/22 18:40 Calculated Osmolality 299 mOsm/kg (285-295) H 05/26/22 18:40 Calcium 9.8 mg/dL (8.5-10.5) 05/26/22 18:40 Total Bilirubin 0.3 mg/dL (0.15-1.2) 05/26/22 18:40 AST 13 U/L (0-32) 05/26/22 18:40 ALT 9 U/L (0-33) 05/26/22 18:40 Alkaline Phosphatase 118 U/L (35-105) H 05/26/22 18:40 Total Protein 7.5 g/dL (6.6-8.7) 05/26/22 18:40 Albumin 4.0 g/dL (3.5-5.2) 05/26/22 18:40 Globulin 3.5 g/dL (1.3-4.6) 05/26/22 18:40 Discharge Plan Discharge Patient Disposition: Home Clinical Impression: Dizziness, Orthostatic hypotension Condition: Stable Prescriptions: New meclizine 25 mg tablet 25 mg PO BID Qty: 14 0RF No Action aspirin [Adult Low Dose Aspirin] 81 mg tablet,delayed release (DR/EC) 81 mg PO DAILY azelastine 0.15 % (205.5 mcg) spray,non-aerosol 1 spray INTRANASAL BID PRN (Reason: Nasal Congestion) pantoprazole [Protonix] 20 mg tablet,delayed release (DR/EC) 20 mg PO DAILY clopidogrel 75 mg tablet 75 mg PO DAILY bismuth subsalicylate [Pepto-Bismol] 262 mg/15 mL suspension 524 mg PO DAILY PRN (Reason: Stomach) artifi.tears(hypromellose)(PF) 0.3 % drops 1 drop ophthalmic (eye) BEDTIME PRN (Reason: Dry Eyes) lovastatin 40 mg tablet 40 mg PO DAILY magnesium hydroxide [Milk of Magnesia] 400 mg/5 mL suspension 30 - 60 ml PO DAILY PRN (Reason: Constipation) fluticasone propionate [Flonase Allergy Relief] 50 mcg/actuation spray,suspension 2 spray INTRANASAL DAILY PRN (Reason: Nasal Congestion) ferrous sulfate 325 mg (65 mg iron) tablet 325 mg PO DAILY alendronate 70 mg tablet 70 mg PO Q7D Label Comments: on fridays Rx Instructions: ON FRIDAYS isosorbide mononitrate 30 mg tablet extended release 24 hr 30 mg PO DAILY furosemide 40 mg tablet 40 mg PO DIRECTED Qty: 97 3RF Rx Instructions: Take 40mg BID X1 week then decrease to 40mg daily buspirone 10 mg tablet 10 mg PO BID Qty: 60 3RF Rx Instructions: Take one tablet by mouth twice daily fluoxetine [Prozac] 20 mg capsule 20 mg PO QAM Qty: 30 3RF Rx Instructions: Take one capsule by mouth every morning trazodone 50 mg tablet See Rx Instructions PO DAILY PRN (Reason: insomnia) Qty: 30 3RF Rx Instructions: Take 1/2 to 1 tablet daily at bedtime, if needed for insomnia amlodipine 10 mg tablet 5 mg PO DAILY Qty: 50 3RF potassium chloride 20 mEq tablet extended release 20 meq PO DAILY Qty: 90 3RF acetaminophen-codeine 300-30 mg Tablet 1 tab PO Q8H MDD 3 tabs PRN (Reason: Pain) Qty: 0 0RF acetaminophen [Tylenol Extra Strength] 500 mg Tablet 500 mg PO Q6H MDD 4 tabs PRN (Reason: pain (scale score 1-3)) Qty: 0 0RF metoprolol succinate 25 mg tablet extended release 24 hr 25 mg PO DAILY Qty: 30 0RF lutein-zeaxanthin [Ocuvite Lutein 25] 25-5 mg Capsule 1 cap PO DAILY promethazine-DM 6.25-15 mg/5 mL Syrup 5 ml PO Q6H PRN (Reason: Cough) ammonium lactate 12 % Lotion 1 applic TOPICAL BEDTIME Trulicity 1.5 mg/0.5 mL Pen Injector 1.5 mg SUBCUT Q7D Discharge Orders: Discharge ED (Routine); Ordered 05/26/22 Ordered By: Jesús Rincon Referrals: Chidi Anaya DO [Primary Care Provider] - Patient Instructions: Hypotension (ED), Dizziness (ED) Activity Restrictions/Additional Instructions: Stop amlodipine for now. Take blood pressures twice daily. If they are significantly elevated, amlodipine may be restarted, however blood pressure from sitting to standing should be checked prior to restarting the Norvasc. Medication as directed otherwise. Take for the next 3 days and then as needed. Coding Level of Care Code ED Maintenance Foreman for Chg Fwd Exam Detailed
[2022-05-26] MEDS: sodium chloride 0.9% 500 ML 999 ML IV (18:41)
--- NOTE | 2022-05-26 18:46 | PC.NURSE ---
DR. AYERS PLACED TWO ABIMBOLA TO CLOSE POSTERIOR HEAD LAC
[2022-05-26 19:09] LABS: Alanine Aminotransferase 9 U/L (0-33); Alkaline Phosphatase 118 U/L (35-105); Anion Gap 14.3 (5-19); Aspartate Amino Transferase 13 U/L (0-32); Blood Urea Nitrogen 25 mg/dL (8-23); Calcium 9.8 mg/dL (8.5-10.5); Carbon Dioxide 29 mmol/L (22-29); Chloride 100 mmol/L (98-107); Globulin 3.5 g/dL (1.3-4.6); Glucose 215 mg/dL (65-115); Osmolality Calculated 299 mOsm/kg (285-295); Potassium 4.3 mmol/L (3.5-5.1); Sodium 139 mmol/L (136-145); Total Bilirubin 0.3 mg/dL (0.15-1.2); Total Protein 7.5 g/dL (6.6-8.7)
[2022-05-26 20:09] LABS: Basophils # 0.1 10^3/uL (0.0-0.1); Basophils % 0.7 %; Eosinophils # 0.1 10^3/uL (0.0-0.8); Eosinophils % 1.8 %; Hematocrit 41.7 % (37.0-47.0); Hemoglobin 13.3 g/dL (11.5-15.3); Lymphocytes # 1.6 10^3/uL (0.8-4.8); Lymphocytes % 21.2 %; Mean Corpuscular HGB Conc 31.9 g/dL (30.0-36.0); Mean Corpuscular Hemoglobin 28.1 pg (28.0-34.0); Mean Corpuscular Volume 88.2 fl (81-99); Mean Platelet Volume 9.7 fL (7.4-10.4); Monocytes # 0.5 10^3/uL (0.2-0.9); Monocytes % 6.8 %; Neutrophils # 5.08 10^3/uL (1.8-7.7); Neutrophils % 69.4 %; Nucleated Red Blood Cells % 0 %; Platelet Count 227 10^3/cmm (130-400); Red Blood Count 4.73 10^6/uL (4.1-5.3); Red Cell Distribution Width 15.3 % (12.1-15.1); White Blood Count 7.3 10^3/uL (4.0-10.0)
[2022-05-26] MEDS: sodium chloride 0.9% 1,000 ML 999 ML IV (20:09)
== END 2022-05-26 22:47 | disposition home or self-care (01) ==
PROVIDERS: Family Medicine; Emergency Provider Emergency Medicine; PCP Internal Medicine
DX: I95.1 Orthostatic hypotension (principal); Z79.85 Long-term (current) use of injectable non-insulin antidiabetic drugs; Z79.02 Long term (current) use of antithrombotics/antiplatelets; Z79.82 Long term (current) use of aspirin; I13.0 Hypertensive heart and chronic kidney disease with heart failure and stage 1 through stage 4 chronic kidney disease, or unspecified chronic kidney disease; E11.22 Type 2 diabetes mellitus with diabetic chronic kidney disease; N18.31 Chronic kidney disease, stage 3a; I50.30 Unspecified diastolic (congestive) heart failure; Z86.19 Personal history of other infectious and parasitic diseases; E78.5 Hyperlipidemia, unspecified; Z87.891 Personal history of nicotine dependence
CPT/HCPCS: 70450; 80053; 85025; 96360; 99284; J7030; J7040

== ENCOUNTER 2022-06-07 11:39 | Outpatient (CLI) | payer MEDICARE, MEDICAID, SELFPAY ==
--- NOTE | 2022-06-07 11:48 | USCV_ITS ---
Hyun Bowers Age: 76 Gender: F : 1945 Exam Date: 06/07/2022 12:02 Ordering Phys: Anupama Tirado MD ([email or web address]) Technologist: Exam [place] [facility] [place]: ? pe BP: 134 / 72 HR: 82 Rhythm: Sinus Technical Quality: Adequate MEASUREMENTS (Male / Female) Normal Values 2D ECHO LV Diastolic Diameter PLAX 3.8 cm 4.2 - 5.9 / 3.9 - 5.3 cm LV Systolic Diameter PLAX 2.8 cm IVS Diastolic Thickness 1.1 cm 0.6 - 1.0 / 0.6 - 0.9 cm IVS Systolic Thickness 1.5 cm LVPW Diastolic Thickness 1.1 cm 0.6 - 1.0 / 0.6 - 0.9 cm LVPW Systolic Thickness 1.4 cm LVOT Diameter 2.0 cm LV Ejection Fraction 2D Teich 44.5 % LV Ejection Fraction MOD 2C 66.9 % LV Ejection Fraction 2C AL 67.0 % LA Diameter 3.9 cm Aorta at Sinotubular Diameter 2.7 cm M-MODE Aortic Annulus Diameter 3.0 cm LA Ao Ratio MM 1.4 FINDINGS Left Ventricle Normal left ventricular size, systolic function and wall thickness, with no regional wall motion abnormalities. Left ventricular ejection fraction is estimated at 70-75 %. Right Ventricle Normal right ventricular size and systolic function. Right Atrium Normal right atrial size. Left Atrium Mildly increased left atrial size. Mitral Valve Mildly thickened mitral valve. Moderate mitral annular calcification. Aortic Valve Aortic valve not well visualized. Tricuspid Valve Structurally normal tricuspid valve. Pulmonic Valve Pulmonic valve not well visualized. No pulmonary valve stenosis. Pericardium Trivial pericardial effusion. Prominent epicardial fat. Aorta Normal sized aortic root. IVC Inferior vena cava not visualized. CONCLUSIONS 1. Normal left ventricular size, systolic function and wall thickness, with no regional wall motion abnormalities. Left ventricular ejection fraction is estimated at 70-75 %. 2. Mildly increased left atrial size. 3. When compared to study dated 01/23/2022, pericardial effusion has decreased in size. Anupama Tirado MD (Electronically Signed) Final Date: 13 June 2022 19:36 S
== END 2022-06-07 11:40 | disposition home or self-care (01) ==
LOC: RAD 11:41
PROVIDERS: PCP Internal Medicine; Visit Provider Internal Medicine Cardiovascular Disease
DX: R06.02 Shortness of breath (principal); J90 Pleural effusion, not elsewhere classified; I51.7 Cardiomegaly
CPT/HCPCS: 93308

== ENCOUNTER → 2022-06-19 08:48 | Outpatient (BNVA) | payer MEDICARE, MEDICAID, SELFPAY | PROVIDERS: PCP Internal Medicine; Visit Provider Podiatrist Foot & Ankle Surgery | DX: Z91.81 History of falling (principal); E11.42 Type 2 diabetes mellitus with diabetic polyneuropathy; M21.619 Bunion of unspecified foot; M20.41 Other hammer toe(s) (acquired), right foot; M20.42 Other hammer toe(s) (acquired), left foot; L85.3 Xerosis cutis; M76.829 Posterior tibial tendinitis, unspecified leg; I73.9 Peripheral vascular disease, unspecified; L60.3 Nail dystrophy; N18.31 Chronic kidney disease, stage 3a | CPT/HCPCS: 99214 ==

== ENCOUNTER → 2023-01-22 09:02 | Outpatient (BNVA) | payer MEDICARE, MEDICAID, OTHER, SELFPAY | PROVIDERS: PCP Internal Medicine; Visit Provider Podiatrist Foot & Ankle Surgery | DX: Z91.81 History of falling (principal); E11.42 Type 2 diabetes mellitus with diabetic polyneuropathy; M20.41 Other hammer toe(s) (acquired), right foot; M20.42 Other hammer toe(s) (acquired), left foot; L85.3 Xerosis cutis; M76.829 Posterior tibial tendinitis, unspecified leg; I73.9 Peripheral vascular disease, unspecified; L60.3 Nail dystrophy; N18.31 Chronic kidney disease, stage 3a; L84 Corns and callosities; M21.612 Bunion of left foot; M21.611 Bunion of right foot; E11.22 Type 2 diabetes mellitus with diabetic chronic kidney disease; Z79.84 Long term (current) use of oral hypoglycemic drugs | CPT/HCPCS: 11056; 11721 ==

== ENCOUNTER → 2023-04-09 08:43 | Outpatient (BNVA) | payer MEDICARE, MEDICAID, SELFPAY | PROVIDERS: PCP Internal Medicine; Visit Provider Podiatrist Foot & Ankle Surgery | DX: Z91.81 History of falling (principal); E11.42 Type 2 diabetes mellitus with diabetic polyneuropathy; L60.3 Nail dystrophy; N18.31 Chronic kidney disease, stage 3a; L84 Corns and callosities; M21.612 Bunion of left foot; M21.611 Bunion of right foot; E11.22 Type 2 diabetes mellitus with diabetic chronic kidney disease; Z79.84 Long term (current) use of oral hypoglycemic drugs | CPT/HCPCS: 11056; 11721 ==

== ENCOUNTER → 2023-07-24 08:58 | Outpatient (BNVA) | payer MEDICARE, MEDICAID, SELFPAY | PROVIDERS: PCP Internal Medicine; Visit Provider Podiatrist Foot & Ankle Surgery | DX: Z91.81 History of falling; E11.42 Type 2 diabetes mellitus with diabetic polyneuropathy; L60.3 Nail dystrophy; N18.31 Chronic kidney disease, stage 3a; L84 Corns and callosities; M21.612 Bunion of left foot; M21.611 Bunion of right foot; Z79.84 Long term (current) use of oral hypoglycemic drugs | CPT/HCPCS: 11056; 11721 ==

== ENCOUNTER 2023-08-15 11:53 | Outpatient (CLI) | payer MEDICARE, MEDICAID, SELFPAY ==
--- NOTE | 2023-08-15 11:57 | XR_ITS ---
WS: [id number] SCREENING DEXA SCAN [employer] CLINICAL INFORMATION: OSTEOPOROSIS COMPARISON: 2020 FINDINGS: The L1-L4 bone mineral density measures 1.344 g/cm2. This corresponds to a T score score of 1.4 and Z score of 2.7. Left femoral neck bone mineral density measures 0.667 g/cm2. This corresponds to a T score of -2.7 an d Z score of -1.1. Right femoral neck bone mineral density measures 0.808 g/cm2. This corresponds to a T score -1.6of an d Z score of 0.0. Mean femoral neck bone mineral density measures 0.738 g/cm2. This corresponds to a T score of -2.1 an d Z score of -0.5. IMPRESSION: Normal bone mineralization lumbar spine. Osteopenia femoral necks. Patient's FRAX calculated 10 year probability for major osteoporotic fracture is 27.6% and osteoporot ic hip fracture is 9.2%. Bone marrow density lumbar spine decreased -1.1% Bone mineral density femoral necks increased 1.2%
== END 2023-08-15 11:54 | disposition home or self-care (01) ==
LOC: RAD 11:53
PROVIDERS: PCP Internal Medicine; Visit Provider Family Medicine
DX: Z13.820 Encounter for screening for osteoporosis (principal); M81.0 Age-related osteoporosis without current pathological fracture; M85.852 Other specified disorders of bone density and structure, left thigh; M85.851 Other specified disorders of bone density and structure, right thigh
CPT/HCPCS: 77080

== ENCOUNTER → 2023-10-07 14:38 | Outpatient (BNVA) | payer MEDICARE, MEDICAID, SELFPAY | PROVIDERS: PCP Internal Medicine; Visit Provider Internal Medicine | DX: I13.0 Hypertensive heart and chronic kidney disease with heart failure and stage 1 through stage 4 chronic kidney disease, or unspecified chronic kidney disease (principal); I50.9 Heart failure, unspecified; N18.31 Chronic kidney disease, stage 3a; E78.5 Hyperlipidemia, unspecified; I31.39 Other pericardial effusion (noninflammatory); Z87.891 Personal history of nicotine dependence | CPT/HCPCS: 99214 ==

== ENCOUNTER → 2023-10-15 09:22 | Outpatient (BNVA) | payer MEDICARE, MEDICAID, SELFPAY | PROVIDERS: PCP Internal Medicine; Visit Provider Podiatrist Foot & Ankle Surgery | DX: Z91.81 History of falling; L60.3 Nail dystrophy; N18.31 Chronic kidney disease, stage 3a; L84 Corns and callosities; E11.42 Type 2 diabetes mellitus with diabetic polyneuropathy; M21.619 Bunion of unspecified foot; E11.22 Type 2 diabetes mellitus with diabetic chronic kidney disease; M21.611 Bunion of right foot; M21.612 Bunion of left foot; Z79.84 Long term (current) use of oral hypoglycemic drugs | CPT/HCPCS: 11056; 11721 ==

== ENCOUNTER 2023-11-05 09:10 | Outpatient (CLI) | payer MEDICARE, MEDICAID, SELFPAY ==
--- NOTE | 2023-11-05 09:30 | USCV_ITS ---
Hyun Bowers Age: 77 Gender: F : 1945 Exam Date: 11/05/2023 09:27 Ordering Phys: Filiberto Molina M.D ([email or web address]) Technologist: CT [place] [facility] [place]: stenosis Risk Factors: Previous Vascular Surgery: Right Brachial BP: / Left Brachial BP: / Right Left Velocity (cm/s) Spectral Plaque Velocity (cm/s) Spectral Plaque Syst/Diast Broadening Syst/Diast Broadening 67.70/ 11.70 Prox CCA 67.70 / 11.90 49.20/ 11.10 Mid CCA 50.50 / 9.70 53.90/ 15.30 Distal CCA 54.50 / 14.10 59.10/ 20.10 Prox ICA 89.30 / 19.90 66.60/ 16.80 Mid ICA 67.40 / 8.90 63.10/ 18.40 Distal ICA 40.80 / 11.00 95.00 ECA 91.10 1.20 ICA/CCA 1.60 Antegrade Vertebral Occluded 35.30/ 10.60 cm/s / cm/s Tri Subclavian Tri 107.9 105.1 0 0 FINDINGS Comparison:. 12/11/21 No significant elevation of systolic or diastolic velocities. Bilateral scattered calcified plaque and intimal thickening throughout the common carotid arteries and extending through the bifurcation. Non visualization left vertebral artery. CONCLUSIONS Bilateral ICA stenosis less than 50%. Non visualized left vertebral artery may be occluded. Mild diffuse scattered plaque. Dr. Yanci Larios DO (Electronically Signed) Final Date: 05 November 2023 10:43 S
== END 2023-11-05 09:11 | disposition home or self-care (01) ==
LOC: RAD 09:11
PROVIDERS: PCP Internal Medicine; Visit Provider Internal Medicine
DX: I65.23 Occlusion and stenosis of bilateral carotid arteries (principal)
CPT/HCPCS: 93880

== ENCOUNTER 2023-12-17 13:40 | Emergency (ER) | payer MEDICARE, MEDICAID, SELFPAY ==
[2023-12-17 13:44] VITALS: BP 109/69; PULSE 82; RESP 16; O2SAT 97
--- NOTE | 2023-12-17 14:04 | XRR_ITS ---
PROCEDURE INFORMATION: Exam: XR Chest Exam date and time: 12/17/2023 2:09 PM Age: 78 years old Clinical indication: Other: Weakness TECHNIQUE: Imaging protocol: Radiologic exam of the chest. Views: 1 view. COMPARISON: CR XR chest 1V portable [id number] 02/16/2022 10:07 AM FINDINGS: Lungs: Unremarkable. No consolidation. Pleural spaces: Unremarkable. No pleural effusion. No pneumothorax. Heart/Mediastinum: Unremarkable. No cardiomegaly. Bones/joints: Mild scoliosis. Otherwise, unremarkable. XR/XR chest 1V portable [id number] IMPRESSION: No acute disease.
--- NOTE | 2023-12-17 14:05 | ECG_ITS ---
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 Measurements Intervals [place] Rate: 81 P: 88 NV: 220 QRS: 4 QRSD: 88 T: 55 QT: 368 QTc: 430 Interpretive Statements SINUS RHYTHM WITH FIRST DEGREE AV BLOCK Compared to ECG 02/16/2022 11:35:48 First degree AV block now present Sinus arrhythmia no longer present Myocardial infarct finding no longer present Electronically Signed On 12-17-2023 21:32:09 CDT by Britney Grace M.D. [email or web address]
[2023-12-17 14:30] VITALS: BP 95/62; PULSE 82; RESP 16; O2SAT 95
--- NOTE | 2023-12-17 14:55 | CTR_ITS ---
PROCEDURE INFORMATION: Exam: CT Head Without Contrast Exam date and time: 12/17/2023 3:18 PM Age: 78 years old Clinical indication: Fever; Patient HX: PT has been having dizzy spells for a couple of weeks. PT had dizzy episode today followed by a vision loss for a couple of minutes . No vision changes at this time. ; Additional info: Dizziness vision loss TECHNIQUE: Imaging protocol: Computed tomography of the head without contrast. Radiation optimization: All CT scans at this facility use at least one of these dose optimization techniques: automated exposure control; mA and/or kV adjustment per patient size (includes targeted exams where dose is matched to clinical indication); or iterative reconstruction. COMPARISON: CT head wo con* [id number] 05/26/2022 5:59 PM RADIATION DOSE METRICS: Total DLP (mGy-cm): 1104.78 FINDINGS: Brain: Unchanged moderate, diffuse atrophy of the brain.There is ill-defined, fairly symmetric low-density within the cerebral deep white matter bilaterally which is likely the sequela of chronic ischemic change due to small vessel disease. This is unchanged. No CT evidence of mass effect, intracranial hemorrhage, or acute infarct. Cerebral ventricles: Mildly prominent ventricles due to the atrophy. Otherwise, unremarkable. Paranasal sinuses: Visualized sinuses are unremarkable. No fluid levels. Mastoid air cells: Visualized mastoid air cells are well aerated. Bones: Unremarkable. No acute fracture. Soft tissues: Unremarkable. CT/CT head wo con* [id number] IMPRESSION: No acute findings.
--- NOTE | 2023-12-17 14:55 | ED_ITS ---
Documented by User: Raza Laurent DO 12/18/23 06:57 HPI - Weakness 2 General: Chief complaint: Weakness Stated complaint: dizzy, vision went back, vitals low Time Seen by Provider: 12/17/23 14:54 Source: patient Mode of arrival: wheelchair History of Present Illness: 78-year-old female presents to the [facility] ency room from the longterm complaining of dizziness but could go out for a couple weeks. She has loss of vision in her left eye from previous trauma and has been slowly losing vision in her right eye. No pain or weakness no difficulty with speech or swallowing. She denies abdominal pain fever sweats chills or shortness of breath. She has no facial weakness or asymmetry. Associated symptoms: Denies chest pain, chills, confusion, melena, decreased appetite, diaphoresis, dysuria, easy bruising, fever(s), headache(s), myalgias, nausea, rash, short of breath, syncope or vomiting Review of Systems 2 Const: Denies: fever(s), chills or diaphoresis Card: Denies: chest pain or syncope Resp: Denies: dyspnea GI: Denies: abdominal pain, nausea, vomiting or melena : Denies: dysuria, urinary frequency or urinary urgency Musc: Denies: neck pain or back pain Skin/Breast: Denies: rash Neuro: Denies: headache(s) or confusion Ortiz/Lymph: Denies: easy bruising PFSH ED 2 PFSH: Medical History Chronic kidney disease, stage 3a Diastolic CHF GERD (gastroesophageal reflux disease) Diabetes Hyperlipidemia Blind Hepatitis C Hypertension Psychiatric care Anxiety disorder, unspecified Major depressive disorder, recurrent, in full remission Surgical History History of eye surgery Social History Smoking and tobacco/nicotine status: former use of tobacco/nicotine Quit status (tobacco/nicotine): has quit using Year quit tobacco: 1196 Former quit date comment: 2 PPD since age 16 Second hand smoke exposure: No Physical Exam 2 Const: COMMON NORMALS: no acute distress GENERAL APPEARANCE: cooperative and comfortable ORIENTATION/CONSCIOUSNESS: Yes awake, Yes oriented to person, Yes oriented to place and Yes oriented to time HENMT: COMMON NORMALS: normocephalic, atraumatic and hearing grossly normal bilaterally HEAD & SCALP: normocephalic and atraumatic OTHER: 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 eye poor vision in the right Resp: COMMON NORMALS: normal respiratory effort, No retractions, No use of accessory muscles and clear to auscultation bilaterally AUSCULTATION: clear to auscultation bilaterally Cardio: COMMON NORMALS: regular rate, regular rhythm and No murmurs present (Cardio) RATE: regular rate RHYTHM: regular rhythm GI: COMMON NORMALS: Soft to palpation and No hepatosplenomegaly present A USCULTATION: Yes normoactive bowel sounds PALPATION: Yes Soft to palpation, No Tenderness to palpation present (GI), No Guarding due to palpation present (GI) and Yes No hepatosplenomegaly present Extremity: COMMON NORMALS: normal to inspection, capillary refill normal, no clubbing, cyanosis or edema, no calf tenderness and no pedal edema Neuro: SENSORIUM/ORIENTATION: Yes oriented to person, Yes oriented to place and Yes oriented to time 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 Sensation bilaterally normal no facial asymmetry baseline has loss of vision in the left eye and significant deterioration of vision in the right eye. No focal neurologic deficits Skin: COMMON NORMALS: no rashes or lesions noted GENERAL SKIN EXAM: no rashes or lesions noted Course 2 Vital Signs: Vital signs: Vital Signs Pulse Rate 77 12/17/23 19:00 Respiratory Rate 16 12/17/23 19:00 Blood Pressure 106/47 12/17/23 19:00 Pulse Oximetry 97 12/17/23 19:00 Oxygen Delivery Me thod Room Air 12/17/23 19:00 MDM - Weakness Medical Decision Making Care signed out to Dr. Dalton at change of shift. See final notes for diagnosis and disposition. Patient care was turned over to myself at shift change, lab work was reviewed, anion gap did go down as well as BUN and creatinine head CT and chest x-ray was negative. Patient be discharged back to her facility. Lab Data 12/17/23 14:50 12/17/23 17:26 Radiology Impressions Chest X-Ray 12/17/23 14:04 IMPRESSION: No acute disease. Head CT 12/17/23 14:55 IMPRESSION: No acute findings. Laboratory Results WBC 7.29 10^3/uL (3.29-11.43) 12/17/23 14:50 RBC 4.11 10^6/uL (3.85-5.65) 12/17/23 14:50 Hgb 12.30 g/dL (11.27-16.99) 12/17/23 14:50 Hct 38.5 % (36-47) 12/17/23 14:50 MCV 93.7 fl (85-98) 12/17/23 14:50 MCH 29.9 pg (27-33) 12/17/23 14:50 MCHC 31.9 g/dL (30-55) 12/17/23 14:50 RDW 12.7 % (12.1-15.1) 12/17/23 14:50 Plt Count 205 10^3/cmm (157-399) 12/17/23 14:50 MPV 9.8 fL (7.4-10.4) 12/17/23 14:50 Neut % (Auto) 62.5 % 12/17/23 14:50 Lymph % (Auto) 27.2 % 12/17/23 14:50 Charlton % (Auto) 8.4 % 12/17/23 14:50 Eos % (Auto) 1.1 % 12/17/23 14:50 Baso % (Auto) 0.7 % 12/17/23 14:50 Neut # (Auto) 4.56 10^3/uL (1.8-7.7) 12/17/23 14:50 Lymph # (Auto) 2.0 10^3/uL (0.8-4.8) 12/17/23 14:50 Charlton # (Auto) 0.6 10^3/uL (0.2-0.9) 12/17/23 14:50 Eos # (Auto) 0.1 10^3/uL (0.0-0.8) 12/17/23 14:50 Baso # (Auto) 0.1 10^3/uL (0.0-0.1) 12/17/23 14:50 Nucleated RBC % (auto) 0 % 12/17/23 14:50 Nucleated RBCs # 0.0 /100WBC 12/17/23 14:50 PT 12.90 SECONDS (12.1-14.9) 12/17/23 14:50 INR 0.94 (0.8-1.2) 12/17/23 14:50 Sodium 136 mmol/L (136-145) 12/17/23 17:26 Potassium 5.4 mmol/L (3.5-5.1) H 12/17/23 17:26 Chloride 102 mmol/L (98-107) 12/17/23 17:26 Carbon Dioxide 20 mmol/L (22-29) L 12/17/23 17:26 Anion Gap 19.4 (5-19) H 12/17/23 17:26 BUN 41 mg/dL (8-23) H 12/17/23 17:26 Creatinine 1.8 mg/dL (0.5-0.9) H 12/17/23 17:26 GFR Calculation Not Reportable 12/17/23 17:26 Glucose 155 mg/dL (65-115) H 12/17/23 17:26 Calculated Osmolality 295 mOsm/kg (285-295) 12/17/23 17:26 Calcium 9.1 mg/dL (8.5-10.5) 12/17/23 17:26 Total Bilirubin 0.2 mg/dL (0.15-1.2) 12/17/23 14:50 AST 15 U/L (0-32) 12/17/23 14:50 ALT 11 U/L (0-33) 12/17/23 14:50 Alkaline Phosphatase 79 U/L (35-105) 12/17/23 14:50 Total Protein 7.2 g/dL (6.6-8.7) 12/17/23 14:50 Albumin 4.1 g/dL (3.5-5.2) 12/17/23 14:50 Globulin 3.1 g/dL (1.3-4.6) 12/17/23 14:50 Urine Color Yellow (Yellow) 12/17/23 16:07 Urine Appearance Clear (CLEAR) 12/17/23 16:07 Urine pH 5 (5-7) 12/17/23 16:07 Ur Specific [place] 1.015 (1.005-1.030) 12/17/23 16:07 Urine Protein Neg (Negative) 12/17/23 16:07 Urine Glucose (UA) 4+ (Normal) H 12/17/23 16:07 Urine Ketones Negative (Negative) 12/17/23 16:07 Urine Blood Neg (Negative) 12/17/23 16:07 Urine Nitrate Negative (Negative) 12/17/23 16:07 Urine Bilirubin Neg (Negative) 12/17/23 16:07 Urine Urobilinogen Norm mg/dL (Negative) 12/17/23 16:07 Ur Leukocyte Esterase Negative (Negative) 12/17/23 16:07 Discharge Plan Discharge Patient Disposition: Home Clinical Impression: Dizziness Condition: Stable Prescriptions: No Action aspirin [Adult Low Dose Aspirin] 81 mg tablet,delayed release (DR/EC) 81 mg PO DAILY pantoprazole [Protonix] 20 mg tablet,delayed release (DR/EC) 20 mg PO DAILY clopidogrel 75 mg tablet 75 mg PO DAILY magnesium hydroxide [Milk of Magnesia] 400 mg/5 mL suspension 30 - 60 ml PO DAILY PRN (Reason: Constipation) fluticasone propionate [Flonase Allergy Relief] 50 mcg/actuation spray,suspension 2 spray INTRANASAL DAILY PRN (Reason: Nasal Congestion) ferrous sulfate 325 mg (65 mg iron) tablet 325 mg PO DAILY alendronate 70 mg tablet 70 mg PO Q7D Patient Comments: on fridays Rx Instructions: ON FRIDAYS isosorbide mononitrate 30 mg tablet extended release 24 hr 30 mg PO DAILY lorazepam 0.5 mg tablet 0.5 mg PO BID PRN metformin 500 mg tablet 1,000 mg PO DAILY felodipine 5 mg tablet extended release 24 hr 5 mg PO DAILY Jardiance 25 mg tablet 25 mg PO DAILY mupirocin 2 % ointment 1 applic topical BID Qty: 15 0RF Healthy Eyes 300 mcg-200 mg-27 mg-2 mg tablet 1 tab PO DAILY Rx Instructions: administer after a meal lisinopril 2.5 mg tablet 2.5 mg PO DAILY rosuvastatin 40 mg tablet 40 mg PO DAILY Ozempic 0.25 mg or 0.5 mg (2 mg/3 mL) pen injector SUBCUT .Weekly ammonium lactate 12 % lotion 1 applic topical .HS erythromycin 5 mg/gram (0.5 %) ointment 1 applic ophthalmic (eye) DAILY PRN Stomach Relief 525 mg/15 mL suspension 1,050 mg PO Q30M Rx Instructions: do not exceed 8 doses in a 24 hour period Systane Ultra 0.4-0.3 % drops 1 drp ophthalmic (eye) QID PRN triamcinolone acetonide 0.1 % cream 1 applic topical BID PRN furosemide 20 mg tablet 20 mg PO DAILY buspirone 10 mg tablet 10 mg PO BID Qty: 60 3RF Rx Instructions: Take one tablet by mouth twice daily fluoxetine [Prozac] 20 mg capsule 20 mg PO QAM Qty: 30 3RF Rx Instructions: Take one capsule by mouth every morning potassium chloride 20 mEq tablet extended release 20 meq PO DAILY Qty: 90 3RF acetaminophen [Tylenol Extra Strength] 500 mg Tablet 500 mg PO Q6H MDD 4 tabs PRN (Reason: pain (scale score 1-3)) Qty: 0 0RF metoprolol succinate 25 mg tablet extended release 24 hr 25 mg PO DAILY Qty: 30 0RF Discharge Orders: Discharge ED (Routine); Ordered 12/17/23 Ordered By: Alexis Dalton Referrals: Umair Kay MD [Primary Care Provider] - 1 week Patient Instructions: Dizziness Activity Restrictions/Additional Instructions: He had lab work performed in the ER before and after you are given 1 L normal saline and your IV. All of your lab work improved however unexplainably your potassium went up after the fluid bolus. Please follow-up with your family practice physician within the next 7 to 10 days and have them recheck your potassium. Otherwise if your symptoms worsen please feel free to return to the ER for further evaluation and treatment. Coding Level of Care Code ED Bag Builder for Chg Fwd Documented by User: Alexis Dalton DO 12/17/23 20:37 HPI - Weakness 2 General: Chief complaint: Weakness Stated complaint: dizzy, vision went back, vitals low Time Seen by Provider: 12/17/23 14:54 PFSH ED 2 PFSH: Medical History Chronic kidney disease, stage 3a Diastolic CHF GERD (gastroesophageal reflux disease) Diabetes Hyperlipidemia Blind Hepatitis C Hypertension Psychiatric care Anxiety disorder, unspecified Major depressive disorder, recurrent, in full remission Surgical History History of eye surgery Social History Smoking and tobacco/nicotine status: former use of tobacco/nicotine Quit status (tobacco/nicotine): has quit using Year quit tobacco: 1196 Former quit date comment: 2 PPD since age 16 Second hand smoke exposure: No Course 2 Vital Signs: Vital signs: Vital Signs Pulse Rate 77 12/17/23 19:00 Respiratory Rate 16 12/17/23 19:00 Blood Pressure 106/47 12/17/23 19:00 Pulse Oximetry 97 12/17/23 19:00 Oxygen Delivery Me thod Room Air 12/17/23 19:00 MDM - Weakness Medical Decision Making Patient care was turned over to myself at shift change, lab work was reviewed, anion gap did go down as well as BUN and creatinine head CT and chest x-ray was negative. Patient be discharged back to her facility. Lab Data 12/17/23 14:50 12/17/23 17:26 Radiology Impressions Chest X-Ray 12/17/23 14:04 IMPRESSION: No acute disease. Head CT 12/17/23 14:55 IMPRESSION: No acute findings. Laboratory Results WBC 7.29 10^3/uL (3.29-11.43) 12/17/23 14:50 RBC 4.11 10^6/uL (3.85-5.65) 12/17/23 14:50 Hgb 12.30 g/dL (11.27-16.99) 12/17/23 14:50 Hct 38.5 % (36-47) 12/17/23 14:50 MCV 93.7 fl (85-98) 12/17/23 14:50 MCH 29.9 pg (27-33) 12/17/23 14:50 MCHC 31.9 g/dL (30-55) 12/17/23 14:50 RDW 12.7 % (12.1-15.1) 12/17/23 14:50 Plt Count 205 10^3/cmm (157-399) 12/17/23 14:50 MPV 9.8 fL (7.4-10.4) 12/17/23 14:50 Neut % (Auto) 62.5 % 12/17/23 14:50 Lymph % (Auto) 27.2 % 12/17/23 14:50 Charlton % (Auto) 8.4 % 12/17/23 14:50 Eos % (Auto) 1.1 % 12/17/23 14:50 Baso % (Auto) 0.7 % 12/17/23 14:50 Neut # (Auto) 4.56 10^3/uL (1.8-7.7) 12/17/23 14:50 Lymph # (Auto) 2.0 10^3/uL (0.8-4.8) 12/17/23 14:50 Charlton # (Auto) 0.6 10^3/uL (0.2-0.9) 12/17/23 14:50 Eos # (Auto) 0.1 10^3/uL (0.0-0.8) 12/17/23 14:50 Baso # (Auto) 0.1 10^3/uL (0.0-0.1) 12/17/23 14:50 Nucleated RBC % (auto) 0 % 12/17/23 14:50 Nucleated RBCs # 0.0 /100WBC 12/17/23 14:50 PT 12.90 SECONDS (12.1-14.9) 12/17/23 14:50 INR 0.94 (0.8-1.2) 12/17/23 14:50 Sodium 136 mmol/L (136-145) 12/17/23 17:26 Potassium 5.4 mmol/L (3.5-5.1) H 12/17/23 17:26 Chloride 102 mmol/L (98-107) 12/17/23 17:26 Carbon Dioxide 20 mmol/L (22-29) L 12/17/23 17:26 Anion Gap 19.4 (5-19) H 12/17/23 17:26 BUN 41 mg/dL (8-23) H 12/17/23 17:26 Creatinine 1.8 mg/dL (0.5-0.9) H 12/17/23 17:26 GFR Calculation Not Reportable 12/17/23 17:26 Glucose 155 mg/dL (65-115) H 12/17/23 17:26 Calculated Osmolality 295 mOsm/kg (285-295) 12/17/23 17:26 Calcium 9.1 mg/dL (8.5-10.5) 12/17/23 17:26 Total Bilirubin 0.2 mg/dL (0.15-1.2) 12/17/23 14:50 AST 15 U/L (0-32) 12/17/23 14:50 ALT 11 U/L (0-33) 12/17/23 14:50 Alkaline Phosphatase 79 U/L (35-105) 12/17/23 14:50 Total Protein 7.2 g/dL (6.6-8.7) 12/17/23 14:50 Albumin 4.1 g/dL (3.5-5.2) 12/17/23 14:50 Globulin 3.1 g/dL (1.3-4.6) 12/17/23 14:50 Urine Color Yellow (Yellow) 12/17/23 16:07 Urine Appearance Clear (CLEAR) 12/17/23 16:07 Urine pH 5 (5-7) 12/17/23 16:07 Ur Specific [place] 1.015 (1.005-1.030) 12/17/23 16:07 Urine Protein Neg (Negative) 12/17/23 16:07 Urine Glucose (UA) 4+ (Normal) H 12/17/23 16:07 Urine Ketones Negative (Negative) 12/17/23 16:07 Urine Blood Neg (Negative) 12/17/23 16:07 Urine Nitrate Negative (Negative) 12/17/23 16:07 Urine Bilirubin Neg (Negative) 12/17/23 16:07 Urine Urobilinogen Norm mg/dL (Negative) 12/17/23 16:07 Ur Leukocyte Esterase Negative (Negative) 12/17/23 16:07 All radiology interpretation(s) finalized by discharge Discharge Plan Discharge Patient Disposition: Home Clinical Impression: Dizziness Condition: Stable Prescriptions: No Action aspirin [Adult Low Dose Aspirin] 81 mg tablet,delayed release (DR/EC) 81 mg PO DAILY pantoprazole [Protonix] 20 mg tablet,delayed release (DR/EC) 20 mg PO DAILY clopidogrel 75 mg tablet 75 mg PO DAILY magnesium hydroxide [Milk of Magnesia] 400 mg/5 mL suspension 30 - 60 ml PO DAILY PRN (Reason: Constipation) fluticasone propionate [Flonase Allergy Relief] 50 mcg/actuation spray,suspension 2 spray INTRANASAL DAILY PRN (Reason: Nasal Congestion) ferrous sulfate 325 mg (65 mg iron) tablet 325 mg PO DAILY alendronate 70 mg tablet 70 mg PO Q7D Patient Comments: on fridays Rx Instructions: ON FRIDAYS isosorbide mononitrate 30 mg tablet extended release 24 hr 30 mg PO DAILY lorazepam 0.5 mg tablet 0.5 mg PO BID PRN metformin 500 mg tablet 1,000 mg PO DAILY felodipine 5 mg tablet extended release 24 hr 5 mg PO DAILY Jardiance 25 mg tablet 25 mg PO DAILY mupirocin 2 % ointment 1 applic topical BID Qty: 15 0RF Healthy Eyes 300 mcg-200 mg-27 mg-2 mg tablet 1 tab PO DAILY Rx Instructions: administer after a meal lisinopril 2.5 mg tablet 2.5 mg PO DAILY rosuvastatin 40 mg tablet 40 mg PO DAILY Ozempic 0.25 mg or 0.5 mg (2 mg/3 mL) pen injector SUBCUT .Weekly ammonium lactate 12 % lotion 1 applic topical .HS erythromycin 5 mg/gram (0.5 %) ointment 1 applic ophthalmic (eye) DAILY PRN Stomach Relief 525 mg/15 mL suspension 1,050 mg PO Q30M Rx Instructions: do not exceed 8 doses in a 24 hour period Systane Ultra 0.4-0.3 % drops 1 drp ophthalmic (eye) QID PRN triamcinolone acetonide 0.1 % cream 1 applic topical BID PRN furosemide 20 mg tablet 20 mg PO DAILY buspirone 10 mg tablet 10 mg PO BID Qty: 60 3RF Rx Instructions: Take one tablet by mouth twice daily fluoxetine [Prozac] 20 mg capsule 20 mg PO QAM Qty: 30 3RF Rx Instructions: Take one capsule by mouth every morning potassium chloride 20 mEq tablet extended release 20 meq PO DAILY Qty: 90 3RF acetaminophen [Tylenol Extra Strength] 500 mg Tablet 500 mg PO Q6H MDD 4 tabs PRN (Reason: pain (scale score 1-3)) Qty: 0 0RF metoprolol succinate 25 mg tablet extended release 24 hr 25 mg PO DAILY Qty: 30 0RF Discharge Orders: Discharge ED (Routine); Ordered 12/17/23 Ordered By: Alexis Dalton Referrals: Umair Kay MD [Primary Care Provider] - 1 week Patient Instructions: Dizziness Activity Restrictions/Additional Instructions: He had lab work performed in the ER before and after you are given 1 L normal saline and your IV. All of your lab work improved however unexplainably your potassium went up after the fluid bolus. Please follow-up with your family practice physician within the next 7 to 10 days and have them recheck your potassium. Otherwise if your symptoms worsen please feel free to return to the ER for further evaluation and treatment. Coding Level of Care Code ED Bag Builder for Peggy Hope
[2023-12-17 14:58] VITALS: BP 107/65; PULSE 85; RESP 14; O2SAT 96
[2023-12-17 15:06] LABS: Basophils # 0.1 10^3/uL (0.0-0.1); Basophils % 0.7 %; Eosinophils # 0.1 10^3/uL (0.0-0.8); Eosinophils % 1.1 %; Hematocrit 38.5 % (36-47); Lymphocytes % 27.2 %; Mean Corpuscular HGB Conc 31.9 g/dL (30-55); Mean Corpuscular Hemoglobin 29.9 pg (27-33); Mean Corpuscular Volume 93.7 fl (85-98); Mean Platelet Volume 9.8 fL (7.4-10.4); Monocytes # 0.6 10^3/uL (0.2-0.9); Monocytes % 8.4 %; Neutrophils # 4.56 10^3/uL (1.8-7.7); Neutrophils % 62.5 %; Nucleated Red Blood Cells % 0 %; Platelet Count 205 10^3/cmm (157-399); Red Blood Count 4.11 10^6/uL (3.85-5.65); Red Cell Distribution Width 12.7 % (12.1-15.1); White Blood Count 7.29 10^3/uL (3.29-11.43)
[2023-12-17 15:18] LABS: INR 0.94 (0.8-1.2)
[2023-12-17 15:24] LABS: Alanine Aminotransferase 11 U/L (0-33); Albumin Level 4.1 g/dL (3.5-5.2); Alkaline Phosphatase 79 U/L (35-105); Anion Gap 22.8 (5-19); Aspartate Amino Transferase 15 U/L (0-32); Blood Urea Nitrogen 44 mg/dL (8-23); Calcium 9.3 mg/dL (8.5-10.5); Carbon Dioxide 20 mmol/L (22-29); Chloride 98 mmol/L (98-107); Creatinine Clr Calc Pharmacy 25.7465; Globulin 3.1 g/dL (1.3-4.6); Glucose 181 mg/dL (65-115); Osmolality Calculated 298 mOsm/kg (285-295); Potassium 4.8 mmol/L (3.5-5.1); Sodium 136 mmol/L (136-145); Total Bilirubin 0.2 mg/dL (0.15-1.2); Total Protein 7.2 g/dL (6.6-8.7)
[2023-12-17 16:48] LABS: Add Urine Microscopic? NO; Charge for UA Resulting for Rev
[2023-12-17 17:51] LABS: Blood Urea Nitrogen 41 mg/dL (8-23); Calcium 9.1 mg/dL (8.5-10.5); Carbon Dioxide 20 mmol/L (22-29); Chloride 102 mmol/L (98-107); Creatinine Clr Calc Pharmacy 28.6073; Glucose 155 mg/dL (65-115); Osmolality Calculated 295 mOsm/kg (285-295); Sodium 136 mmol/L (136-145)
[2023-12-17 17:52] LABS: Bilirubin Urine Neg (Negative); Blood Urine Neg (Negative); Ketones Urine Negative (Negative); Leukocyte Esterase Urine Negative (Negative); Nitrate Urine Negative (Negative); Protein Urine Neg (Negative); Specific Gravity, Urine 1.015 (1.005-1.030); Urine Appearance Clear (CLEAR); Urine Color Yellow (Yellow); Urobilinogen Urine Norm (Negative); pH Urine 5 (5-7)
[2023-12-17 17:55] LABS: Glucose Urine UA 4+ (Normal)
[2023-12-17 17:56] LABS: Anion Gap 19.4 (5-19); Potassium 5.4 mmol/L (3.5-5.1)
[2023-12-17] MEDS: sodium chloride 0.9% 1,000 ML 999 ML IV (18:13)
[2023-12-17 19:00] VITALS: BP 106/47; PULSE 77; RESP 16; O2SAT 97
[2023-12-17] MEDS: acetaminophen 500 mg Tablet 1000 MG PO (19:21)
== END 2023-12-17 19:41 | disposition home or self-care (01) ==
PROVIDERS: Emergency Medicine; Emergency Provider Family Medicine; PCP Family Medicine
DX: R42 Dizziness and giddiness (principal); Z79.02 Long term (current) use of antithrombotics/antiplatelets; Z79.82 Long term (current) use of aspirin; Z79.84 Long term (current) use of oral hypoglycemic drugs; Z79.85 Long-term (current) use of injectable non-insulin antidiabetic drugs; E11.22 Type 2 diabetes mellitus with diabetic chronic kidney disease; I13.0 Hypertensive heart and chronic kidney disease with heart failure and stage 1 through stage 4 chronic kidney disease, or unspecified chronic kidney disease; N18.31 Chronic kidney disease, stage 3a; I50.30 Unspecified diastolic (congestive) heart failure; E78.5 Hyperlipidemia, unspecified; Z86.19 Personal history of other infectious and parasitic diseases; Z87.891 Personal history of nicotine dependence
CPT/HCPCS: 36415; 70450; 71045; 80048; 80053; 81003; 85025; 85610; 93005; 99285; J7030

== ENCOUNTER → 2024-01-06 11:30 | Outpatient (BNVA) | payer MEDICARE, MEDICAID, SELFPAY | PROVIDERS: PCP Family Medicine; Visit Provider Podiatrist Foot & Ankle Surgery | DX: L84 Corns and callosities (principal); Z91.81 History of falling; L60.3 Nail dystrophy; N18.31 Chronic kidney disease, stage 3a; E11.8 Type 2 diabetes mellitus with unspecified complications; E11.42 Type 2 diabetes mellitus with diabetic polyneuropathy; M21.611 Bunion of right foot; M21.612 Bunion of left foot | CPT/HCPCS: 11056; 11721 ==

== ENCOUNTER 2024-02-06 09:30 | Emergency (ER) | payer MEDICARE, MEDICAID, SELFPAY ==
[2024-02-06] VITALS (7 sets, daily range): BP systolic 90–153; BP diastolic 47–70; PULSE 65–96; RESP 16–18; TEMP 36.9; O2SAT 95–99; BMI 29.3
--- NOTE | 2024-02-06 09:37 | XR_ITS ---
WS: [id number] Examination: XR chest 1V portable [id number] Reason for Exam: dyspnea/cough Date: 02/06/2024 Comparison: 12/17/2023 Findings: The heart is not enlarged. The mediastinum is not widened. There is no pulmonary edema or pleural effusion. No dense consolidation is identified. XR/XR chest 1V portable [id number] Impression: No acute lung process is seen.
--- NOTE | 2024-02-06 10:07 | W.ED.DIZZY ---
HPI - Dizziness General: Chief Complaint: Dizziness Stated Complaint: SOB Time Seen by Provider: 02/06/24 09:37 History of Present Illness: HPI Narrative: 78-year-old female presents emergency room complaining of dizziness and shortness of breath.. She states the dizziness was worse earlier but was anytime she moved her head. It is better now. She denies any chest pain. She states that about a week ago she had some dizziness on her left side. She denies any abdominal pain. Denies any chest pain at this time. She not had any flulike symptoms. She has had problems multiple times in the past with dizziness. She states she has partial vision loss, there are no new focal deficits or lateralizing deficits at this time Associated symptoms: Denies chest pain or chills Related Data Home Medications Medication Instructions Recorded Confirmed clopidogrel 75 mg tablet 75 mg PO DAILY 07/10/19 02/06/24 fluticasone propionate 50 2 spray intranasal DAILY Nasal 07/10/19 02/06/24 mcg/actuation nasal Congestion spray,suspension (Flonase Allergy Relief) aspirin 81 mg tablet,delayed 81 mg PO DAILY 07/13/19 02/06/24 release (Adult Low Dose Aspirin) ferrous sulfate 325 mg (65 mg 325 mg PO DAILY 10/16/21 02/06/24 iron) tablet isosorbide mononitrate 30 mg 30 mg PO DAILY 03/06/22 02/06/24 tablet,extended release 24 hr lorazepam 0.5 mg tablet 0.5 mg PO BID PRN Anxiety 08/02/22 02/06/24 empagliflozin 25 mg tablet 25 mg PO DAILY 10/16/22 02/06/24 (Jardiance) rosuvastatin 40 mg tablet 40 mg PO BEDTIME 10/07/23 02/06/24 vit A 300 mcg-C 200 mg-E 27 1 tab PO DAILY 10/07/23 02/06/24 mg-lutein 2 mg and minerals tablet (Healthy Eyes) ammonium lactate 12 % lotion 1 applic topical BEDTIME 11/15/23 02/06/24 bismuth subsalicylate 525 mg/15 mL 1,050 mg PO Q30M PRN Indigestion 11/15/23 02/06/24 oral suspension (Stomach Relief) erythromycin 5 mg/gram (0.5 %) eye 1 applic ophthalmic (eye) DAILY 11/15/23 02/06/24 ointment (3.5 gram tube) PRN infection peg 400-propylene glycol 0.4 %-0.3 1 drp ophthalmic (eye) QID PRN Dry 11/15/23 02/06/24 % eye drops (Systane Ultra) Eyes pantoprazole 20 mg tablet,delayed 40 mg PO DAILY 01/06/24 02/06/24 release (Protonix) acetaminophen 300 mg-codeine 30 mg 1 tab PO Q8H PRN chronic pain 02/06/24 02/06/24 tablet felodipine 2.5 mg tablet,extended 50 mg PO DAILY 02/06/24 02/06/24 release 24 hr insulin degludec 100 unit/mL (3 8 unit SUBCUT QAM 02/06/24 02/06/24 mL) subcutaneous pen (Tresiba FlexTouch U-100 insulin) insulin glargine 100 unit/mL (3 8 unit SUBCUT DAILY 02/06/24 02/06/24 mL) subcutaneous pen (Lantus Solostar U-100 Insulin) lisinopril 5 mg tablet 5 mg PO QPM 02/06/24 02/06/24 magnesium hydroxide 400 mg/5 mL 30 - 60 ml PO DAILY PRN 02/06/24 02/06/24 oral suspension (Milk of Magnesia) Constipation mupirocin 2 % topical ointment 1 applic topical BID PRN Skin 02/06/24 02/06/24 Irritation Previous Rx's Medication Instructions Recorded acetaminophen 500 mg tablet 500 mg PO Q6H PRN pain (scale 12/13/21 (Tylenol Extra Strength) score 1-3) #0 tabs metoprolol succinate 25 mg 25 mg PO DAILY #30 tabs 12/13/21 tablet,extended release 24 hr potassium chloride 20 mEq 20 meq PO DAILY #90 tabs 05/29/22 tablet,extended release buspirone 10 mg tablet 10 mg PO BID #60 tabs 11/15/23 fluoxetine 20 mg capsule (Prozac) 20 mg PO QAM #30 caps 11/15/23 meclizine 25 mg tablet 25 mg PO TID PRN dizziness #20 tabs 02/06/24 Allergies Allergy/AdvReac Type Severity Reaction Status Date / Time No Known Allergies Allergy Verified 01/06/24 11:49 Review of Systems Const: Denies: fever(s) or chills Card: Denies: chest pain Resp: Denies: dyspnea GI: Denies: abdominal pain : Denies: dysuria, urinary frequency or urinary urgency Musc: Denies: neck pain or back pain Skin/Breast: Denies: rash PFSH ED PFSH: Medical History Chronic kidney disease, stage 3a Diastolic CHF GERD (gastroesophageal reflux disease) Diabetes Hyperlipidemia Blind Hepatitis C Hypertension Psychiatric care Anxiety disorder, unspecified Major depressive disorder, recurrent, in full remission Surgical History History of eye surgery Social History Smoking and tobacco/nicotine status: former use of tobacco/nicotine Quit status (tobacco/nicotine): has quit using Year quit tobacco: 1196 Former quit date comment: 2 PPD since age 16 Second hand smoke exposure: No Physical Exam Const: COMMON NORMALS: no acute distress GENERAL APPEARANCE: cooperative and comfortable ORIENTATION/CONSCIOUSNESS: Yes awake, Yes oriented to person, Yes oriented to place and Yes oriented to time HENMT: COMMON NORMALS: normocephalic, atraumatic and hearing grossly normal bilaterally HEAD & SCALP: normocephalic and atraumatic Resp: COMMON NORMALS: normal respiratory effort, No retractions, No use of accessory muscles and clear to auscultation bilaterally AUSCULTATION: clear to auscultation bilaterally Cardio: COMMON NORMALS: regular rate, regular rhythm and No murmurs present (Cardio) RATE: regular rate RHYTHM: regular rhythm GI: COMMON NORMALS: Soft to palpation and No hepatosplenomegaly present AUSCULTATION: Yes normoactive bowel sounds PALPATION: Yes Soft to palpation, No Tenderness to palpation present (GI), No Guarding due to palpation present (GI) and Yes No hepatosplenomegaly present Extremity: COMMON NORMALS: normal to inspection, capillary refill normal, no clubbing, cyanosis or edema, no calf tenderness and no pedal edema Neuro: SENSORIUM/ORIENTATION: Yes oriented to person, Yes oriented to place and Yes oriented to time OTHER: No focal neurologic deficits. 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 No ataxia no weakness in the extremities. Skin: COMMON NORMALS: no rashes or lesions noted GENERAL SKIN EXAM: no rashes or lesions noted Course Vital Signs: Vital signs: Vital Signs Temperature 98.4 F 02/06/24 09:41 Pulse Rate 68 02/06/24 15:39 Respiratory Rate 18 02/06/24 15:11 Blood Pressure 153/56 02/06/24 15:39 Pulse Oximetry 98 02/06/24 15:39 Oxygen Delivery Me thod Room Air 02/06/24 15:11 MDM - Dizziness Medical Decision Making Labs EKG and imaging reviewed as found in the chart. Noted there is no focal neurologic deficits. She has had problems with dizziness multiple times in the past. Creatinine is elevated however this is essentially her baseline. Glucose is elevated but does not have a significant anion gap she is a known diabetic. Troponins not significantly elevated today she is not having any further chest discomfort at the time the workup was completed she is feeling much better will discharge patient home continue to monitor glucose at home can use meclizine as needed and follow-up with primary care Medical Records I reviewed the patient's medical records. Lab Data I reviewed the patient's lab results. 02/06/24 10:26 02/06/24 10:26 Radiology Impressions Chest X-Ray 02/06/24 09:37 Impression: No acute lung process is seen. Laboratory Results WBC 7.92 10^3/uL (3.29-11.43) 02/06/24 10:26 RBC 4.10 10^6/uL (3.85-5.65) 02/06/24 10:26 Hgb 12.30 g/dL (11.27-16.99) 02/06/24 10:26 Hct 38.9 % (36-47) 02/06/24 10:26 MCV 94.9 fl (85-98) 02/06/24 10:26 MCH 30.0 pg (27-33) 02/06/24 10: MCHC 31.6 g/dL (30-55) 02/06/24 10:26 RDW 12.8 % (12.1-15.1) 02/06/24 10:26 Plt Count 192 10^3/cmm (157-399) 02/06/24 10:26 MPV 9.4 fL (7.4-10.4) 02/06/24 10:26 Neut % (Auto) 73.1 % 02/06/24 10:26 Lymph % (Auto) 17.9 % 02/06/24 10:26 [place] % (Auto) 7.2 % 02/06/24 10:26 Eos % (Auto) 0.9 % 02/06/24 10:26 Baso % (Auto) 0.5 % 02/06/24 10:26 Neut # (Auto) 5.79 10^3/uL (1.8-7.7) 02/06/24 10:26 Lymph # (Auto) 1.4 10^3/uL (0.8-4.8) 02/06/24 10: [place] # (Auto) 0.6 10^3/uL (0.2-0.9) 02/06/24 10: Eos # (Auto) 0.1 10^3/uL (0.0-0.8) 02/06/24 10: Baso # (Auto) 0.0 10^3/uL (0.0-0.1) 02/06/24 10:26 Nucleated RBC % (auto) 0 % 02/06/24 10: Nucleated RBCs # 0.0 /100WBC 02/06/24 10:26 Sodium 140 mmol/L (136-145) 02/06/24 10:26 Potassium 4.8 mmol/L (3.5-5.1) 02/06/24 10:26 Chloride 103 mmol/L (98-107) 02/06/24 10:26 Carbon Dioxide 25 mmol/L (22-29) 02/06/24 10:26 Anion Gap 16.8 (5-19) 02/06/24 10:26 BUN 32 mg/dL (8-23) H 02/06/24 10:26 Creatinine 1.5 mg/dL (0.5-0.9) H 02/06/24 10:26 GFR Calculation Not Reportable 02/06/24 10:26 Glucose 295 mg/dL (65-115) H 02/06/24 10:26 Calculated Osmolality 308 mOsm/kg (285-295) H 02/06/24 10:26 Calcium 9.1 mg/dL (8.5-10.5) 09/05/24 10:26 Total Bilirubin 0.2 mg/dL (0.15-1.2) 02/06/24 10:26 AST 14 U/L (0-32) 02/06/24 10:26 ALT 10 U/L (0-33) 02/06/24 10:26 Alkaline Phosphatase 84 U/L (35-105) 02/06/24 10:26 Troponin T Baseline 23 ng/L (0-10) H 02/06/24 10:26 Troponin T 120 Minute 18.14 ng/L (0-10) H 02/06/24 13:47 Delta Troponin T -4.86 ABS# (0-10) L 02/06/24 13:47 NT-Pro-B Natriuret Pep 1536 pg/mL (0-450) H 02/06/24 10:26 Total Protein 6.7 g/dL (6.6-8.7) 02/06/24 10:26 Albumin 3.9 g/dL (3.5-5.2) 02/06/24 10:26 Globulin 2.8 g/dL (1.3-4.6) 02/06/24 10:26 All radiology interpretation(s) finalized by discharge Discharge Plan Discharge Patient Disposition: Home Clinical Impression: Dizziness, Recurrent syncope Hypertension Qualifiers: Hypertension type: primary hypertension Qualified Code(s): I10 - Essential (primary) hypertension Condition: Stable Prescriptions: New meclizine 25 mg tablet 25 mg PO TID PRN (Reason: dizziness) Qty: 20 0RF No Action aspirin [Adult Low Dose Aspirin] 81 mg tablet,delayed release (DR/EC) 81 mg PO DAILY clopidogrel 75 mg tablet 75 mg PO DAILY fluticasone propionate [Flonase Allergy Relief] 50 mcg/actuation spray,suspension 2 spray INTRANASAL DAILY pantoprazole [Protonix] 20 mg tablet,delayed release (DR/EC) 40 mg PO DAILY ferrous sulfate 325 mg (65 mg iron) tablet 325 mg PO DAILY isosorbide mononitrate 30 mg tablet extended release 24 hr 30 mg PO DAILY lorazepam 0.5 mg tablet 0.5 mg PO BID PRN (Reason: Anxiety) Jardiance 25 mg tablet 25 mg PO DAILY Healthy Eyes 300 mcg-200 mg-27 mg-2 mg tablet 1 tab PO DAILY Rx Instructions: administer after a meal rosuvastatin 40 mg tablet 40 mg PO BEDTIME ammonium lactate 12 % lotion 1 applic topical BEDTIME erythromycin 5 mg/gram (0.5 %) ointment 1 applic ophthalmic (eye) DAILY PRN (Reason: infection) Stomach Relief 525 mg/15 mL suspension 1,050 mg PO Q30M PRN (Reason: Indigestion) Rx Instructions: do not exceed 8 doses in a 24 hour period Systane Ultra 0.4-0.3 % drops 1 drp ophthalmic (eye) QID PRN (Reason: Dry Eyes) buspirone 10 mg tablet 10 mg PO BID Qty: 60 3RF fluoxetine [Prozac] 20 mg capsule 20 mg PO QAM Qty: 30 3RF potassium chloride 20 mEq tablet extended release 20 meq PO DAILY Qty: 90 3RF acetaminophen [Tylenol Extra Strength] 500 mg Tablet 500 mg PO Q6H MDD 4 tabs PRN (Reason: pain (scale score 1-3)) Qty: 0 0RF metoprolol succinate 25 mg tablet extended release 24 hr 25 mg PO DAILY Qty: 30 0RF felodipine 2.5 mg tablet extended release 24 hr 50 mg PO DAILY acetaminophen-codeine 300-30 mg tablet 1 tab PO Q8H PRN (Reason: chronic pain) Milk of Magnesia 400 mg/5 mL Suspension 30 - 60 ml PO DAILY PRN (Reason: Constipation) lisinopril 5 mg tablet 5 mg PO QPM Lantus Solostar U-100 Insulin 100 unit/mL (3 mL) insulin pen 8 unit SUBCUT DAILY Tresiba FlexTouch U-100 100 unit/mL (3 mL) insulin pen 8 unit SUBCUT QAM mupirocin 2 % ointment 1 applic topical BID PRN (Reason: Skin Irritation) Discharge Orders: Discharge ED (Routine); Ordered 02/06/24 Ordered By: Raza Laurent Referrals: Umair Kay MD [Primary Care Provider] - Discharge Diet: Usual diet Discharge Activity: Resume usual activity Patient Instructions: Opioid Safety, Pain Management Activity Restrictions/Additional Instructions: Thank you for choosing [facility] for your healthcare needs today. It is very important that you follow up as instructed or that you return to the Emergency Department should you have concerns or if your condition changes or worsens in any way. You were seen today for episodes of dizziness. Blood pressure was slightly low but improved after you arrive. Your laboratory test did not show significant abnormality. Reviewing chart you have had similar complaints in the past. Sometimes these can be related to medications. Recommend you follow-up with your primary care doctor and nutrient management specialist to review your medication list. Additionally you can use the meclizine given to you today as needed once every 8 hours if you have symptoms of dizziness. 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
--- NOTE | 2024-02-06 10:10 | ECG_ITS ---
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 Measurements Intervals [place] Rate: 69 P: 0 [place]: 0 QRS: -35 QRSD: 88 T: 37 QT: 391 QTc: 420 Interpretive Statements SINUS RHYTHM. BASELINE ELECTRICAL ARTIFACT LOW QRS VOLTAGE IN PRECORDIAL LEADS [QRS DEFLECTION < 1.0 mV IN CHEST LEADS] INFERIOR MYOCARDIAL INFARCTION , OF INDETERMINATE AGE [40+ ms Q WAVE AND/OR ST/T ABNORMALITY IN II/aVF] ANTEROSEPTAL MYOCARDIAL INFARCTION , OF INDETERMINATE AGE [40+ ms Q WAVE IN V1-V4] Compared to ECG 12/17/2023 14:12:47 Supraventricular rhythm now present Low QRS voltage now present Myocardial infarct finding now present First degree AV block no longer present Electronically Signed On 02-06-2024 14:43:44 CDT by Filiberto Molina M.D. [id number]
--- NOTE | 2024-02-06 10:10 | PC.PHAR ---
[facility]
[2024-02-06 10:36] LABS: Basophils % 0.5 %; Eosinophils # 0.1 10^3/uL (0.0-0.8); Eosinophils % 0.9 %; Hematocrit 38.9 % (36-47); Lymphocytes # 1.4 10^3/uL (0.8-4.8); Lymphocytes % 17.9 %; Mean Corpuscular HGB Conc 31.6 g/dL (30-55); Mean Corpuscular Volume 94.9 fl (85-98); Mean Platelet Volume 9.4 fL (7.4-10.4); Monocytes # 0.6 10^3/uL (0.2-0.9); Monocytes % 7.2 %; Neutrophils # 5.79 10^3/uL (1.8-7.7); Neutrophils % 73.1 %; Nucleated Red Blood Cells % 0 %; Platelet Count 192 10^3/cmm (157-399); Red Cell Distribution Width 12.8 % (12.1-15.1); White Blood Count 7.92 10^3/uL (3.29-11.43)
[2024-02-06 10:56] LABS: Troponin(5th) Baseline 23 ng/L (0-10)
[2024-02-06 10:59] LABS: Alanine Aminotransferase 10 U/L (0-33); Albumin Level 3.9 g/dL (3.5-5.2); Alkaline Phosphatase 84 U/L (35-105); Aspartate Amino Transferase 14 U/L (0-32); Blood Urea Nitrogen 32 mg/dL (8-23); Calcium 9.1 mg/dL (8.5-10.5); Carbon Dioxide 25 mmol/L (22-29); Chloride 103 mmol/L (98-107); Creatinine Clr Calc Pharmacy 32.9351; Globulin 2.8 g/dL (1.3-4.6); Glucose 295 mg/dL (65-115); Osmolality Calculated 308 mOsm/kg (285-295); Sodium 140 mmol/L (136-145); Total Bilirubin 0.2 mg/dL (0.15-1.2); Total Protein 6.7 g/dL (6.6-8.7)
[2024-02-06 11:00] LABS: Anion Gap 16.8 (5-19); Potassium 4.8 mmol/L (3.5-5.1)
[2024-02-06 11:05] LABS: NT Pro B Type Natriuretic Pept 1536 pg/mL (0-450)
[2024-02-06] MEDS: sodium chloride 0.9% 1,000 ML 999 ML IV (11:20)
--- NOTE | 2024-02-06 11:38 | ECG_ITS ---
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 Measurements Intervals [place] Rate: 66 P: 0 [place]: 0 QRS: -36 QRSD: 93 T: 50 QT: 408 QTc: 428 Interpretive Statements SUPRAVENTRICULAR RHYTHM. ELECTRICAL ARTIFACT LEFT AXIS DEVIATION [QRS AXIS < -30] LOW QRS VOLTAGE IN PRECORDIAL LEADS [QRS DEFLECTION < 1.0 mV IN CHEST LEADS] SEPTAL MYOCARDIAL INFARCTION , PROBABLY OLD [40+ ms Q WAVE IN V1/V2] Compared to ECG 02/06/2024 10:10:06 Left-axis deviation now present Myocardial infarct finding still present Electronically Signed On 02-06-2024 14:46:21 CDT by Filiberto Molina M.D. [id number]
[2024-02-06 14:31] LABS: Troponin 5 2HR 18.14 ng/L (0-10)
[2024-02-06 14:32] LABS: Troponin 5 2HR Delta -4.86 ABS# (0-10)
--- NOTE | 2024-02-06 15:38 | ECG_ITS ---
[facility] Test Date: 2024-02-06 Pat Name: Hyun Bowers Department: Room: Gender: Female Pt Sitter: : 1945 Requested By: Raza Yap Order Number: [id number] Reading MD: Filiberto Molina M.D. Measurements Intervals [place] Rate: 68 P: 0 [place]: 0 QRS: -27 QRSD: 104 T: 46 QT: 398 QTc: 424 Interpretive Statements SUPRAVENTRICULAR RHYTHM LOW QRS VOLTAGE IN PRECORDIAL LEADS [QRS DEFLECTION < 1.0 mV IN CHEST LEADS] SEPTAL MYOCARDIAL INFARCTION , OF INDETERMINATE AGE [40+ ms Q WAVE IN V1/V2] Compared to ECG 02/06/2024 12:29:25 Left-axis deviation no longer present Myocardial infarct finding still present Electronically Signed On 02-06-2024 16:08:34 CDT by Filiberto Molina M.D. [id number]
== END 2024-02-06 15:40 | disposition home or self-care (01) ==
PROVIDERS: Emergency Provider Family Medicine; PCP Family Medicine
DX: R42 Dizziness and giddiness (principal); R55 Syncope and collapse; Z79.02 Long term (current) use of antithrombotics/antiplatelets; Z79.82 Long term (current) use of aspirin; Z79.4 Long term (current) use of insulin; Z87.891 Personal history of nicotine dependence; I13.0 Hypertensive heart and chronic kidney disease with heart failure and stage 1 through stage 4 chronic kidney disease, or unspecified chronic kidney disease; E11.22 Type 2 diabetes mellitus with diabetic chronic kidney disease; N18.31 Chronic kidney disease, stage 3a; I50.30 Unspecified diastolic (congestive) heart failure; E78.5 Hyperlipidemia, unspecified; Z86.19 Personal history of other infectious and parasitic diseases
CPT/HCPCS: 36415; 71045; 80053; 83880; 84484; 85025; 93005; 96360; 96361; 99285; J7030

== ENCOUNTER 2024-02-16 10:07 | Emergency (ER) | payer MEDICARE, MEDICAID, SELFPAY ==
[2024-02-16] VITALS (8 sets, daily range): BP systolic 94–138; BP diastolic 51–72; PULSE 61–78; RESP 15–18; TEMP 37; O2SAT 95–98; BMI 29.3
--- NOTE | 2024-02-16 10:13 | ECG_ITS ---
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 Measurements Intervals [place] Rate: 72 P: 87 SD: 223 QRS: -38 QRSD: 89 T: 15 QT: 386 QTc: 423 Interpretive Statements SINUS RHYTHM WITH FIRST DEGREE AV BLOCK INFERIOR MYOCARDIAL INFARCTION , PROBABLY OLD [40+ ms Q WAVE AND/OR ST/T ABNORMALITY IN II/aVF] ANTEROSEPTAL MYOCARDIAL INFARCTION , PROBABLY OLD [40+ ms Q WAVE IN V1-V4] Compared to ECG 02/06/2024 15:05:49 First degree AV block now present Supraventricular rhythm no longer present Myocardial infarct finding still present Electronically Signed On 02-16-2024 17:43:55 CDT by Filiberto Molina M.D. [id number]
--- NOTE | 2024-02-16 10:13 | XRR_ITS ---
PROCEDURE INFORMATION: Exam: XR Chest Exam date and time: 02/16/2024 10:19 AM Age: 78 years old Clinical indication: Pain; Chest pressure; Additional info: Chest pain TECHNIQUE: Imaging protocol: Radiologic exam of the chest. Views: 1 view. COMPARISON: CR XR chest 1V portable [id number] 02/06/2024 9:51 AM FINDINGS: Lungs: Unremarkable. No consolidation. Pleural spaces: Unremarkable. No pleural effusion. No pneumothorax. Heart/Mediastinum: Unremarkable. No cardiomegaly. Bones/joints: Unremarkable. XR/XR chest 1V portable [id number] IMPRESSION: No acute findings.
--- NOTE | 2024-02-16 10:16 | ED_ITS ---
HPI - General Adult 2 General: Chief complaint: Extremity Problem,Nontraumatic Stated complaint: left arm pain Time Seen by Provider: 02/16/24 10:09 History of Present Illness: Presents to the ER from assisted living by EMS with complaints of chest pain that has resolved and left arm numbness that is minimal but still present. Patient's original complaint was chest pain that radiated to her left arm and then it started easing up on her left arm started becoming having decreased sensation. Chest pain now is totally resolved as well as arm pain however she says arm is still having decreased sensation. 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 Related Data Home Medications Medication Instructions Recorded Confirmed clopidogrel 75 mg tablet 75 mg PO DAILY 07/10/19 02/06/24 fluticasone propionate 50 2 spray intranasal DAILY Nasal 07/10/19 02/06/24 mcg/actuation nasal Congestion spray,suspension (Flonase Allergy Relief) aspirin 81 mg tablet,delayed 81 mg PO DAILY 07/13/19 02/06/24 release (Adult Low Dose Aspirin) ferrous sulfate 325 mg (65 mg 325 mg PO DAILY 10/16/21 02/06/24 iron) tablet isosorbide mononitrate 30 mg 30 mg PO DAILY 03/06/22 02/06/24 tablet,extended release 24 hr lorazepam 0.5 mg tablet 0.5 mg PO BID PRN Anxiety 08/02/22 02/06/24 empagliflozin 25 mg tablet 25 mg PO DAILY 10/16/22 02/06/24 (Jardiance) rosuvastatin 40 mg tablet 40 mg PO BEDTIME 10/07/23 02/06/24 vit A 300 mcg-C 200 mg-E 27 1 tab PO DAILY 10/07/23 02/06/24 mg-lutein 2 mg and minerals tablet (Healthy Eyes) ammonium lactate 12 % lotion 1 applic topical BEDTIME 11/15/23 02/06/24 bismuth subsalicylate 525 mg/15 mL 1,050 mg PO Q30M PRN Indigestion 11/15/23 02/06/24 oral suspension (Stomach Relief) erythromycin 5 mg/gram (0.5 %) eye 1 applic ophthalmic (eye) DAILY 06/14/24 09/05/24 ointment (3.5 gram tube) PRN infection peg 400-propylene glycol 0.4 %-0.3 1 drp ophthalmic (eye) QID PRN Dry 11/15/23 02/06/24 % eye drops (Systane Ultra) Eyes pantoprazole 20 mg tablet,delayed 40 mg PO DAILY 01/06/24 02/06/24 release (Protonix) acetaminophen 300 mg-codeine 30 mg 1 tab PO Q8H PRN chronic pain 02/06/24 02/06/24 tablet felodipine 2.5 mg tablet,extended 50 mg PO DAILY 02/06/24 02/06/24 release 24 hr insulin degludec 100 unit/mL (3 8 unit SUBCUT QAM 02/06/24 02/06/24 mL) subcutaneous pen (Tresiba FlexTouch U-100 insulin) insulin glargine 100 unit/mL (3 8 unit SUBCUT DAILY 02/06/24 02/06/24 mL) subcutaneous pen (Lantus Solostar U-100 Insulin) lisinopril 5 mg tablet 5 mg PO QPM 02/06/24 02/06/24 magnesium hydroxide 400 mg/5 mL 30 - 60 ml PO DAILY PRN 02/06/24 02/06/24 oral suspension (Milk of Magnesia) Constipation mupirocin 2 % topical ointment 1 applic topical BID PRN Skin 02/06/24 02/06/24 Irritation Previous Rx's Medication Instructions Recorded acetaminophen 500 mg tablet 500 mg PO Q6H PRN pain (scale 12/13/21 (Tylenol Extra Strength) score 1-3) #0 tabs metoprolol succinate 25 mg 25 mg PO DAILY #30 tabs 12/13/21 tablet,extended release 24 hr potassium chloride 20 mEq 20 meq PO DAILY #90 tabs 05/29/22 tablet,extended release buspirone 10 mg tablet 10 mg PO BID #60 tabs 11/15/23 fluoxetine 20 mg capsule (Prozac) 20 mg PO QAM #30 caps 11/15/23 meclizine 25 mg tablet 25 mg PO TID PRN dizziness #20 tabs 02/06/24 Allergies Allergy/AdvReac Type Severity Reaction Status Date / Time No Known Allergies Allergy Verified 02/16/24 10:16 Review of Systems 2 General: Reports: 10 or more systems reviewed and unremarkable except in HPI and below PFSH ED 2 PFSH: Medical History Chronic kidney disease, stage 3a Diastolic CHF GERD (gastroesophageal reflux disease) Diabetes Hyperlipidemia Blind Hepatitis C Hypertension Psychiatric care Anxiety disorder, unspecified Major depressive disorder, recurrent, in full remission Surgical History History of eye surgery Social History Smoking and tobacco/nicotine status: former use of tobacco/nicotine Quit status (tobacco/nicotine): has quit using Year quit tobacco: 1196 Former quit date comment: 2 PPD since age 16 Second hand smoke exposure: No Physical Exam 2 Const: COMMON NORMALS: no acute distress, average body habitus, patient oriented x3, no limitations, healthy appearing, alert and well nourished HENMT: COMMON NORMALS: normocephalic, atraumatic, hearing grossly normal bilaterally, external ears normal, Normal external nose present and moist oral mucous membranes HEAD & SCALP: normocephalic and atraumatic NOSE: Normal external nose present EXTERNAL EAR: Yes external ears normal Neck/C-Spine: COMMON NORMALS: no JVD Chest: COMMONS NORMALS: normal inspection of the chest and normal palpation of entire chest wall Resp: COMMON NORMALS: normal respiratory effort, No retractions, No use of accessory muscles and clear to auscultation bilaterally AUSCULTATION: clear to auscultation bilaterally Cardio: COMMON NORMALS: no JVD, regular rate, regular rhythm, S1 normal heart sound present, S2 normal heart sound present, No gallops present (Cardio), No clicks present (Cardio), No murmurs present (Cardio) and No rub (Cardio) R ATE: regular rate RHYTHM: regular rhythm HEART SOUNDS: S1 normal heart sound present and S2 normal heart sound present GI: COMMON NORMALS: Normal to inspection, nondistended, normoactive bowel sounds present, Soft to palpation, non-tender, No hepatosplenomegaly present and no masses PALPATION: Yes Soft to palpation and Yes No hepatosplenomegaly present Neuro: COMMON NORMALS: patient oriented x3 SENSORIUM/ORIENTATION: Yes alert Course 2 Vital Signs: Vital signs: Vital Signs Temperature 98.6 F 02/16/24 10:09 Pulse Rate 61 09/15/24 13:05 Respiratory Rate 17 02/16/24 13:05 Blood Pressure 138/72 02/16/24 13:05 Pulse Oximetry 96 02/16/24 13:05 Oxygen Delivery Me thod Room Air 02/16/24 10:09 MDM - General Adult Medical Decision Making Patient arrived with chest pain and left arm pain and numbness, patient was worked up in a standard chest pain fashion with serial EKGs, enzymes, chest x- ray, all essentially benign. Patient be discharged back home to follow-up with her PCP. Medical Records I reviewed the patient's medical records. Lab Data I reviewed the patient's lab results. 02/16/24 10:42 02/16/24 10:42 Radiology Impressions Chest X-Ray 02/16/24 10:13 IMPRESSION: No acute findings. Laboratory Results WBC 7.59 10^3/uL (3.29-11.43) 02/16/24 10:42 RBC 4.28 10^6/uL (3.85-5.65) 02/16/24 10:42 Hgb 12.70 g/dL (11.27-16.99) 02/16/24 10:42 Hct 40.3 % (36-47) 02/16/24 10:42 MCV 94.2 fl (85-98) 02/16/24 10:42 MCH 29.7 pg (27-33) 02/16/24 10:42 MCHC 31.5 g/dL (30-55) 02/16/24 10:42 RDW 12.7 % (12.1-15.1) 02/16/24 10:42 Plt Count 202 10^3/cmm (157-399) 02/16/24 10:42 MPV 9.3 fL (7.4-10.4) 02/16/24 10:42 Neut % (Auto) 74.7 % 02/16/24 10:42 Lymph % (Auto) 16.5 % 02/16/24 10:42 Gibson % (Auto) 7.0 % 02/16/24 10:42 Eos % (Auto) 0.8 % 02/16/24 10:42 Baso % (Auto) 0.7 % 02/16/24 10:42 Neut # (Auto) 5.68 10^3/uL (1.8-7.7) 02/16/24 10:42 Lymph # (Auto) 1.3 10^3/uL (0.8-4.8) 02/16/24 10:42 Gibson # (Auto) 0.5 10^3/uL (0.2-0.9) 02/16/24 10:42 Eos # (Auto) 0.1 10^3/uL (0.0-0.8) 02/16/24 10:42 Baso # (Auto) 0.1 10^3/uL (0.0-0.1) 02/16/24 10:42 Nucleated RBC % (auto) 0 % 02/16/24 10:42 Nucleated RBCs # 0.0 /100WBC 02/16/24 10:42 PT 13.10 SECONDS (12.1-14.9) 02/16/24 10:42 INR 0.97 (0.8-1.2) 02/16/24 10:42 Sodium 139 mmol/L (136-145) 02/16/24 10:42 Potassium 4.8 mmol/L (3.5-5.1) 02/16/24 10:42 Chloride 103 mmol/L (98-107) 02/16/24 10:42 Carbon Dioxide 25 mmol/L (22-29) 02/16/24 10:42 Anion Gap 15.8 (5-19) 02/16/24 10:42 BUN 30 mg/dL (8-23) H 02/16/24 10:42 Creatinine 1.4 mg/dL (0.5-0.9) H 02/16/24 10:42 GFR Calculation Not Reportable 02/16/24 10:42 Glucose 80 mg/dL (65-115) 02/16/24 10:42 Calculated Osmolality 293 mOsm/kg (285-295) 02/16/24 10:42 Calcium 9.2 mg/dL (8.5-10.5) 02/16/24 10:42 Magnesium 2.2 mg/dL (1.7-2.3) 02/16/24 10:42 Total Bilirubin 0.3 mg/dL (0.15-1.2) 02/16/24 10:42 AST 15 U/L (0-32) 02/16/24 10:42 ALT 8 U/L (0-33) 02/16/24 10:42 Alkaline Phosphatase 90 U/L (35-105) 02/16/24 10:42 Troponin T Baseline 18 ng/L (0-10) H 02/16/24 10:42 Troponin T 120 Minute 17.06 ng/L (0-10) H 02/16/24 12:43 Delta Troponin T -0.94 ABS# (0-10) L 02/16/24 12:43 Total Protein 6.7 g/dL (6.6-8.7) 02/16/24 10:42 Albumin 4.2 g/dL (3.5-5.2) 02/16/24 10:42 Globulin 2.5 g/dL (1.3-4.6) 02/16/24 10:42 All radiology interpretation(s) finalized by discharge Discharge Plan Discharge Patient Disposition: Home Clinical Impression: Chest pain Qualifiers: Chest pain type: unspecified Qualified Code(s): R07.9 - Chest pain, unspecified Condition: Stable Prescriptions: No Action aspirin [Adult Low Dose Aspirin] 81 mg tablet,delayed release (DR/EC) 81 mg PO DAILY clopidogrel 75 mg tablet 75 mg PO DAILY fluticasone propionate [Flonase Allergy Relief] 50 mcg/actuation spray,suspension 2 spray INTRANASAL DAILY pantoprazole [Protonix] 20 mg tablet,delayed release (DR/EC) 40 mg PO DAILY ferrous sulfate 325 mg (65 mg iron) tablet 325 mg PO DAILY isosorbide mononitrate 30 mg tablet extended release 24 hr 30 mg PO DAILY lorazepam 0.5 mg tablet 0.5 mg PO BID PRN (Reason: Anxiety) Jardiance 25 mg tablet 25 mg PO DAILY Healthy Eyes 300 mcg-200 mg-27 mg-2 mg tablet 1 tab PO DAILY Rx Instructions: administer after a meal rosuvastatin 40 mg tablet 40 mg PO BEDTIME ammonium lactate 12 % lotion 1 applic topical BEDTIME erythromycin 5 mg/gram (0.5 %) ointment 1 applic ophthalmic (eye) DAILY PRN (Reason: infection) Stomach Relief 525 mg/15 mL suspension 1,050 mg PO Q30M PRN (Reason: Indigestion) Rx Instructions: do not exceed 8 doses in a 24 hour period Systane Ultra 0.4-0.3 % drops 1 drp ophthalmic (eye) QID PRN (Reason: Dry Eyes) buspirone 10 mg tablet 10 mg PO BID Qty: 60 3RF fluoxetine [Prozac] 20 mg capsule 20 mg PO QAM Qty: 30 3RF potassium chloride 20 mEq tablet extended release 20 meq PO DAILY Qty: 90 3RF acetaminophen [Tylenol Extra Strength] 500 mg Tablet 500 mg PO Q6H MDD 4 tabs PRN (Reason: pain (scale score 1-3)) Qty: 0 0RF metoprolol succinate 25 mg tablet extended release 24 hr 25 mg PO DAILY Qty: 30 0RF felodipine 2.5 mg tablet extended release 24 hr 50 mg PO DAILY acetaminophen-codeine 300-30 mg tablet 1 tab PO Q8H PRN (Reason: chronic pain) Milk of Magnesia 400 mg/5 mL Suspension 30 - 60 ml PO DAILY PRN (Reason: Constipation) lisinopril 5 mg tablet 5 mg PO QPM Lantus Solostar U-100 Insulin 100 unit/mL (3 mL) insulin pen 8 unit SUBCUT DAILY Tresiba FlexTouch U-100 100 unit/mL (3 mL) insulin pen 8 unit SUBCUT QAM mupirocin 2 % ointment 1 applic topical BID PRN (Reason: Skin Irritation) meclizine 25 mg tablet 25 mg PO TID PRN (Reason: dizziness) Qty: 20 0RF Discharge Orders: Discharge ED (Routine); Ordered 02/16/24 Ordered By: Alexis Dalton Referrals: Umair Kay MD [Primary Care Provider] - 1 week Patient Instructions: Chest Pain (DC) Activity Restrictions/Additional Instructions: Your evaluation ER did not show any acute cause of your chest pain or arm pain numbness. It is felt that is noncardiac in nature. Please follow-up with your family proximal physician within next 7 days for further evaluation and treatment. Coding Level of Care Code ED Senior Mobile Web Developer for Peggy Hope
[2024-02-16 10:49] LABS: Basophils # 0.1 10^3/uL (0.0-0.1); Basophils % 0.7 %; Eosinophils # 0.1 10^3/uL (0.0-0.8); Eosinophils % 0.8 %; Hematocrit 40.3 % (36-47); Lymphocytes # 1.3 10^3/uL (0.8-4.8); Lymphocytes % 16.5 %; Mean Corpuscular HGB Conc 31.5 g/dL (30-55); Mean Corpuscular Hemoglobin 29.7 pg (27-33); Mean Corpuscular Volume 94.2 fl (85-98); Mean Platelet Volume 9.3 fL (7.4-10.4); Monocytes # 0.5 10^3/uL (0.2-0.9); Neutrophils # 5.68 10^3/uL (1.8-7.7); Neutrophils % 74.7 %; Nucleated Red Blood Cells % 0 %; Platelet Count 202 10^3/cmm (157-399); Red Blood Count 4.28 10^6/uL (3.85-5.65); Red Cell Distribution Width 12.7 % (12.1-15.1); White Blood Count 7.59 10^3/uL (3.29-11.43)
[2024-02-16 11:00] LABS: INR 0.97 (0.8-1.2)
[2024-02-16 11:05] LABS: Alanine Aminotransferase 8 U/L (0-33); Albumin Level 4.2 g/dL (3.5-5.2); Alkaline Phosphatase 90 U/L (35-105); Anion Gap 15.8 (5-19); Aspartate Amino Transferase 15 U/L (0-32); Blood Urea Nitrogen 30 mg/dL (8-23); Calcium 9.2 mg/dL (8.5-10.5); Carbon Dioxide 25 mmol/L (22-29); Chloride 103 mmol/L (98-107); Globulin 2.5 g/dL (1.3-4.6); Glucose 80 mg/dL (65-115); Magnesium 2.2 mg/dL (1.7-2.3); Osmolality Calculated 293 mOsm/kg (285-295); Potassium 4.8 mmol/L (3.5-5.1); Sodium 139 mmol/L (136-145); Total Bilirubin 0.3 mg/dL (0.15-1.2); Total Protein 6.7 g/dL (6.6-8.7)
[2024-02-16 11:06] LABS: Troponin(5th) Baseline 18 ng/L (0-10)
[2024-02-16 11:11] LABS: Creatinine Clr Calc Pharmacy 35.2876
--- NOTE | 2024-02-16 12:13 | ECG_ITS ---
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 Measurements Intervals [employer] Rate: 62 P: 0 LA: 0 QRS: -36 QRSD: 92 T: 12 QT: 413 QTc: 423 Interpretive Statements SUPRAVENTRICULAR RHYTHM INFERIOR MYOCARDIAL INFARCTION , PROBABLY OLD [40+ ms Q WAVE AND/OR ST/T ABNORMALITY IN II/aVF] ANTEROSEPTAL MYOCARDIAL INFARCTION , PROBABLY OLD [40+ ms Q WAVE IN V1-V4] Compared to ECG 02/16/2024 10:13:11 Supraventricular rhythm now present Sinus rhythm no longer present First degree AV block no longer present Myocardial infarct finding still present Electronically Signed On 02-16-2024 17:44:36 CDT by Filiberto Molina M.D. [id number]
[2024-02-16 13:07] LABS: Troponin 5 2HR 17.06 ng/L (0-10)
[2024-02-16 13:18] LABS: Troponin 5 2HR Delta -0.94 ABS# (0-10)
== END 2024-02-16 13:54 | disposition home or self-care (01) ==
PROVIDERS: Emergency Provider Emergency Medicine; PCP Family Medicine
DX: R07.9 Chest pain, unspecified (principal); Z79.02 Long term (current) use of antithrombotics/antiplatelets; Z79.82 Long term (current) use of aspirin; Z79.4 Long term (current) use of insulin; Z87.891 Personal history of nicotine dependence; E11.22 Type 2 diabetes mellitus with diabetic chronic kidney disease; I13.0 Hypertensive heart and chronic kidney disease with heart failure and stage 1 through stage 4 chronic kidney disease, or unspecified chronic kidney disease; N18.31 Chronic kidney disease, stage 3a; I50.30 Unspecified diastolic (congestive) heart failure; E78.5 Hyperlipidemia, unspecified; Z86.19 Personal history of other infectious and parasitic diseases
CPT/HCPCS: 71045; 80053; 83735; 84484; 85025; 85610; 93005; 99285

== ENCOUNTER → 2024-03-20 13:09 | Outpatient (BNVA) | payer MEDICARE, MEDICAID, SELFPAY | PROVIDERS: PCP Family Medicine; Visit Provider Podiatrist Foot & Ankle Surgery | DX: Z91.81 History of falling (principal); L60.3 Nail dystrophy; N18.31 Chronic kidney disease, stage 3a; E11.42 Type 2 diabetes mellitus with diabetic polyneuropathy; Z79.4 Long term (current) use of insulin | CPT/HCPCS: 99213 ==

== ENCOUNTER → 2024-04-15 10:30 | Outpatient (BNVA) | payer MEDICARE, MEDICAID, SELFPAY | PROVIDERS: PCP Family Medicine; Visit Provider Nurse Practitioner Family | DX: I11.0 Hypertensive heart disease with heart failure (principal); E78.2 Mixed hyperlipidemia; I50.33 Acute on chronic diastolic (congestive) heart failure; I65.29 Occlusion and stenosis of unspecified carotid artery; Z87.891 Personal history of nicotine dependence; R60.9 Edema, unspecified | CPT/HCPCS: 99214 ==

== ENCOUNTER → 2024-07-21 07:57 | Outpatient (BNVA) | payer MEDICARE, MEDICAID, SELFPAY | PROVIDERS: PCP Family Medicine; Visit Provider Podiatrist Foot & Ankle Surgery | DX: E11.42 Type 2 diabetes mellitus with diabetic polyneuropathy (principal); L60.3 Nail dystrophy; L84 Corns and callosities; Z91.81 History of falling; N18.31 Chronic kidney disease, stage 3a; Z79.4 Long term (current) use of insulin | CPT/HCPCS: 11055; 11721 ==

== ENCOUNTER → 2024-09-17 15:48 | Outpatient (BNVA) | payer MEDICARE, MEDICAID, SELFPAY | PROVIDERS: PCP Family Medicine; Visit Provider Internal Medicine | DX: I13.0 Hypertensive heart and chronic kidney disease with heart failure and stage 1 through stage 4 chronic kidney disease, or unspecified chronic kidney disease (principal); N18.31 Chronic kidney disease, stage 3a; I50.9 Heart failure, unspecified; E78.2 Mixed hyperlipidemia; I31.39 Other pericardial effusion (noninflammatory); Z72.0 Tobacco use | CPT/HCPCS: 99213 ==

== ENCOUNTER → 2024-10-20 08:48 | Outpatient (BNVA) | payer MEDICARE, MEDICAID, SELFPAY | PROVIDERS: PCP Family Medicine; Visit Provider Podiatrist Foot & Ankle Surgery | DX: E11.42 Type 2 diabetes mellitus with diabetic polyneuropathy (principal); L60.3 Nail dystrophy; L84 Corns and callosities; Z91.81 History of falling; N18.31 Chronic kidney disease, stage 3a; Z79.4 Long term (current) use of insulin | CPT/HCPCS: 11055; 11721 ==

== ENCOUNTER → 2024-12-22 09:58 | Outpatient (BNVA) | payer MEDICARE, MEDICAID, SELFPAY | PROVIDERS: PCP Family Medicine; Referring Provider Family Medicine; Visit Provider Specialist | DX: R20.0 Anesthesia of skin (principal); R20.2 Paresthesia of skin; R29.898 Other symptoms and signs involving the musculoskeletal system; G60.0 Hereditary motor and sensory neuropathy | CPT/HCPCS: 95911 ==

== ENCOUNTER → 2025-01-12 09:29 | Outpatient (BNVA) | payer MEDICARE, MEDICAID, SELFPAY | PROVIDERS: PCP Family Medicine; Visit Provider Podiatrist Foot & Ankle Surgery | DX: E11.42 Type 2 diabetes mellitus with diabetic polyneuropathy (principal); L60.3 Nail dystrophy; E11.8 Type 2 diabetes mellitus with unspecified complications; Z91.81 History of falling; N18.31 Chronic kidney disease, stage 3a; L84 Corns and callosities; Z79.4 Long term (current) use of insulin | CPT/HCPCS: 11055; 11721 ==

== ENCOUNTER 2025-03-05 15:13 | Emergency (ER) | payer MEDICARE, MEDICAID, SELFPAY ==
[2025-03-05 15:19] VITALS: BP 131/84; PULSE 66; RESP 18; TEMP 36.7; O2SAT 98
--- OUTSIDE RECORDS SUMMARY | 2025-03-05 15:21 | XMS_ITS | Clinical Summary ---
Author Organization [facility] Address [address] [place]: Epic Prelude ADT [place] [address] Care Team Providers Care Graduate Rn Name Role Phone Chidi Anaya DO Primary Care Provide r Allergies No known active allergies Medications metoprolol succinate (TOPROL XL) 100 mg Extended Release 24 hour tablet 100 mg daily am. 09/07/2014 Active traZODone (DESYREL) 50 mg tablet 50 mg daily at bedtime . 09/07/2014 Active amLODIPine (NORVASC) 10 mg tablet 10 mg daily pm. 09/07/2014 Active HYDROCHLOROTHIA ZIDE ORAL 25 mg daily . 09/07/2014 Active amoxicillin-cla vulanate (AUGMENTIN) 875-125 mg tablet Take 1 Tab by mouth every 12 hours. 09/08/2014 Active metformin HCl (METFORMIN ORAL) 500 mg 2 times daily . 09/07/2014 Active fluoxetine HCl (PROZAC ORAL) 40 mg daily grounds restoration specialist Takes 80 mg. 09/07/2014 Active lisinopriL (PRINIVIL) 40 mg tablet 40 mg 2 times daily . 09/07/2014 Active lovastatin (MEVACOR) 40 mg tablet 09/07/2014 Active busPIRone (BUSPAR) 10 mg tablet 10 mg 3 times daily . 09/07/2014 Active aspirin (ASPIR-81 ORAL) 09/07/2014 Act nura ARIPiprazole (ABILIFY) 5 mg tablet 5 mg daily . 09/07/2014 Active sitagliptin phosphate (JANUVIA ORAL) 100 mg daily grounds restoration specialist . 09/07/2014 Active omeprazole (PriLOSEC) 20 mg Capsule, Delayed Release(E.C.) 20 mg daily . 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 07/06/2015 Choroidal hemorrhage - left eye 09/07/2014 Hyphema of left eye 09/07/2014 Type 2 diabetes mellitus wit h mild nonproliferative diabetic retinopathy without macular edema 09/07/2014 Vitreous hemorrhage - left eye 09/07/2014 Ruptured globe, s/p scleral patch graft 09/09/2014 - left eye 09/07/2014 Trauma to eye, left 09/07/2014 Family History Medical History Relation Name Comments Diabetes Father Diabetes Mother Relation Name Status Comments Father Mother Social History Tobacco Use Types Packs/Day Years Used Date Smoking Tobacco: Former Alcohol Use Standard Drinks/Week Comments No 0 (1 standard drink = 0.6 oz pur e alcohol) Comments Unknown Sex and Gender Information Value Date Recorded Sex Assigned at Not on file Legal Sex Female 7:40 AM EQUIPMENT VALIDATION SPECIALIST Gender Identity Not on file Sexual Orientation Not on file Last Filed Vital Signs Vital Sign Reading Time Taken Comments Blood Pressure 135/73 01/06/2016 10:42 AM CDT Pulse 86 07/06/2015 10:20 AM EQUIPMENT VALIDATION SPECIALIST Temperature 35.5 C (95.9 F) 09/09/2014 12:10 PM CDT Respiratory Rate 14 09/09/2014 1:12 PM CDT Oxygen Saturation - - Inhaled Oxygen Concentration - - Weight 83.9 kg (185 lb) 01/06/2016 10:42 AM CDT Height 167.6 cm (5' 6 ) 01/06/2016 10:42 AM CDT Body Mass Index 29.86 01/06/2016 10:42 AM CDT Plan of Treatment Health Maintenance Due Date Last Done Comments DIABETES ANNUAL FOOT EXAM 1962 DIABETES HBA1C Q 6 MONTHS 1962 DIABETES MICROALBUMIN ANNUAL SCREEN 1962 LDL CHOLESTEROL ANNUAL 1962 DTAP/TDAP/TD VACCINES (1 - Tdap) 12/10/1963 PNEUMOCOCCAL VACCINE 50+ YEA RS (1 of 2 - PCV) 12/10/1963 ZOSTER VACCINE (1 of 2) 1994 OSTEOPOROSIS SCREENING 2009 DIABETES ANNUAL RETINAL EXAM 01/05/201710/2015, 01/06/2016, 01/06/2016, Additional history exists RSV VACCINE (60+ or ) (1 - 1-dose 75+ series) 12/10/2019 INFLUENZA VACCINE (#1) 2025 Medical Devices Implanted Type Area Manager Money Device Identifier Shelf Expiration Date Model / Serial / Lot Niko Cornea Tutoplast 0.5 34151 - [id number] Implanted:Qty: 1 on 09/09/2014 by Pierre Boo MD Graft Left: Eye [employer] 08/09/2018 [id number] / / [id number] Procedures Procedure Name Priority Date/Time Associated Diagnosis Comments OPHTHALMIC DIAGNOSTIC IMAGING RETINA RIGHT Routine 01/06/2016 11:43 AM CDT Ruptured globe of left eye, subsequent encounter from Last 3 Months or Most Recently Relevant to Health Maintenance Results * OPHTHALMIC DIAGNOSTIC IMAGING RETINA RIGHT (01/06/2016 11:43 AM CDT) Narrative INTERFACE SYSTEM - 01/06/2016 11:43 AM CDT Pierre Boo MD 01/06/2016 11:43 AM Optical Coherent Topography Report Indication: To evaluate the macula. Right Eye: background diabetic retinopathy. There is no macular edema or subretinal fluid. Left Eye: choroidal elevation. No overlying cystoid macular edema nor submacular fluid. Diagnosis: background diabetic retinopathy, right eye(s). Choroidal rupture, left eye Procedure Note Conversion, Auto Data - 09/06/2021 Pierre Boo MD 01/06/2016 11:43 AM Optical Coherent Topography Report Indication: To evaluate the macula. Right Eye: background diabetic retinopathy. There is no macular edema or subretinal fluid. Left Eye: choroidal elevation. No overlying cystoid macular edema nor submacular fluid. Diagnosis: background diabetic retinopathy, right eye(s). Choroidal rupture, left eye Pierre Boo MD OPH OTHER Final Result INTERFACE SYSTEM Refer to clinic/hospital department from Last 3 Months or Most Recently Relevant to Health Maintenance Care Teams Graduate Rn Relationship Specialty Start Date End Date Chidi Anaya DO [address] [address] PCP - General Internal Medicine 09/07/14
--- OUTSIDE RECORDS SUMMARY | 2025-03-05 15:21 | XMS_ITS | Clinical Summary ---
Author Organization [facility] Address [address] [place] [address] Care Team Providers Care Montessori Teacher Name Role Phone Chidi Anaya Primary Care Provide r Allergies No known active allergies Medications ARIPiprazole (ABILIFY) 5 mg tablet 5 mg daily . Active amLODIPine (NORVASC) 10 mg tablet 10 mg daily pm. Active ASPIRIN (ASPIR-81 ORAL) Acti ve busPIRone (BUSPAR) 10 mg tablet 10 mg 3 times daily . Active HYDROCHLOROTHIA ZIDE ORAL 25 mg daily . Active SITAGLIPTIN PHOSPHATE (JANUVIA ORAL) 100 mg daily drupal developer . Active lisinopril (PRINIVIL) 40 mg tablet 40 mg 2 times daily . Active lovastatin (MEVACOR) 40 mg tablet Active METFORMIN HCL (METFORMIN ORAL) 500 mg 2 times daily . Active metoprolol succinate (TOPROL XL) 100 mg Extended Release 24 hour tablet 100 mg daily am. Active omeprazole (PRILOSEC) 20 mg Capsule, Delayed Release(E.C.) 20 mg daily . Active FLUOXETINE HCL (PROZAC ORAL) 40 mg daily drupal developer Takes 80 mg. Active traZODone (DESYREL) 50 mg tablet 50 mg daily at bedtime . Active amoxicillin-cla vulanate (AUGMENTIN) 875-125 mg tablet Take 1 Tab by mouth every 12 hours. 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 07/06/2015 Choroidal hemorrhage - left eye 09/07/2014 Vitreous hemorrhage - left eye 09/07/2014 Hyphema of left eye 09/07/2014 Ruptured globe, s/p scleral patch graft 09/09/2014 - left eye 09/07/2014 Type 2 diabetes mellitus wit h mild nonproliferative diabetic retinopathy without macular edema 09/07/2014 Trauma to eye, left 09/07/2014 Family History Medical History Relation Name Comments Diabetes Father Diabetes Mother Relation Name Status Comments Father Mother Social History Tobacco Use Types Packs/Day Years Used Date Smoking Tobacco: Former Alcohol Use Standard Drinks/Week Comments No 0 (1 standard drink = 0.6 oz pur e alcohol) Comments No Sex and Gender Information Value Date Recorded Sex Assigned at Not on file Legal Sex Female 12:52 PM CDT Gender Identity Not on file Sexual Orientation Not on file Last Filed Vital Signs Vital Sign Reading Time Taken Comments Blood Pressure 135/73 01/06/2016 10:42 AM CDT Pulse 86 07/06/2015 10:20 AM SUPERVISOR BILLPOSTING Temperature 35.5 C (95.9 F) 09/09/2014 12:10 PM CDT Respiratory Rate 14 09/09/2014 1:12 PM CDT Oxygen Saturation 96% 09/09/2014 1:12 PM CDT Inhaled Oxygen Concentration - - Weight 83.9 [...] (#1) 2025 Medical Devices Implanted Type Area Cotton Presser Device Identifier Shelf Expiration Date Model / Serial / Lot Allgrft Cornea Tutoplast 0.5 98236 - [id number] Implanted:Qty: 1 on 09/09/2014 by Pierre Boo MD at [facility] Left: Eye [employer]I [employer] 08/09/2018 [id number] / / [id number] Procedures Procedure Name Priority Date/Time Associated Diagnosis Comments SC CPTRIZED OPH DX IMG PST SEGMENT UNI/BI RETINA Routine 01/06/2016 11:43 AM CDT Ruptured globe of left eye, subsequent encounter from Last 3 Months or Most Recently Relevant to Health Maintenance Results * SC CPTRIZED OPH DX IMG PST SEGMENT UNI/BI RETINA (01/06/2016 11:43 AM CDT) Narrative [facility] [place] - 01/06/2016 11:43 AM CDT Pierre Boo MD 01/06/2016 11:43 AM Optical Coherent Topography Report Indication: To evaluate the macula. Right Eye: background diabetic retinopathy. There is no macular edema or subretinal fluid. Left Eye: choroidal elevation. No overlying cystoid macular edema nor submacular fluid. Diagnosis: background diabetic retinopathy, right eye(s). Choroidal rupture, left eye X Bella Boo MD OPH OTHER Final Result [facility] [place] [facility] from Last 3 Months or Most Recently Relevant to Health Maintenance Insurance [place] Member Subscriber Plan / Payer (Ef fective 2014-Present) Name:Hyun Helton Relation to Subscriber:Self Name:Hyun Helton Payer ID:[id number] Group ID:Not on file Type:Medicaid Address: [id number] [place] [address] DUAL COMPLETE [facility] PPO D-SNP Advance Directives For more information, please contact: [phone] * Full Code (Latest Code Status on File) Date Activated Date Inactivated Comments 09/09/2014 9:41 AM 09/09/2014 3:34 PM Care Teams Montessori Teacher Relationship Specialty Start Date End Date Chidi Anaya DO [address] [address] PCP - General Internal Medicine 09/07/14
--- NOTE | 2025-03-05 15:32 | USR_ITS ---
PROCEDURE INFORMATION: Exam: US Duplex Left Upper Extremity Veins, Limited Exam date and time: 03/05/2025 4:08 PM Age: 79 years old Clinical indication: Swelling (edema) of limb; Upper extremity, left TECHNIQUE: Imaging protocol: Real-time duplex ultrasound of the left extremity with 2-D cdoy scale, color Doppler flow and spectral waveform analysis including responses to compression and other maneuvers (when performed) with image documentation. Limited exam focused on the left upper extremity veins. COMPARISON: CR XR wrist LT min 3V* [id number] 05/15/2024 12:28 PM FINDINGS: Left deep veins: Unremarkable. Axillary and brachial veins are patent throughout without thrombus. Normal Doppler waveforms. Normal compressibility and/or augmentation response. Visualized internal jugular and subclavian veins are patent. Superficial veins: Unremarkable. Visualized cephalic and basilic veins are patent without thrombus. Soft tissues: Unremarkable. US/[place] [id number] IMPRESSION: No evidence of deep vein thrombosis.
--- NOTE | 2025-03-05 15:34 | W.ED.SKABFB ---
HPI - Skin/Abscess/Foreign Bdy General: Chief complaint: Skin/Abscess/Foreign Body Stated complaint: L arm pain and numbness going to back,R arm Time Seen by Provider: 03/05/25 15:21 Source: patient Mode of arrival: ambulatory Limitations: no limitations History of Present Illness: 79-year-old female who is here from [facility] she has been having bilateral hand pain and swelling that been going on for months caregiver states they have been getting her worked up with nerve studies outpatient and states she had some slight increase in her swelling in redness and pain. Patient is now resting comfortably denies any pain does have some swelling to the left hand denies any injury denies any fevers Related Data Home Medications ?Medication ?Instructions ?Recorded ?Confirmed fluticasone propionate 50 2 spray intranasal DAILY Nasal 07/10/19 01/12/25 mcg/actuation nasal Congestion spray,suspension (Flonase Allergy Relief) lorazepam 0.5 mg tablet 0.5 mg PO BID PRN Anxiety 08/02/22 01/12/25 empagliflozin 25 mg tablet 25 mg PO DAILY 10/16/22 01/12/25 (Jardiance) rosuvastatin 40 mg tablet 40 mg PO BEDTIME 10/07/23 01/12/25 vit A 300 mcg-C 200 mg-E 27 1 tab PO DAILY 10/07/23 01/12/25 mg-lutein 2 mg and minerals tablet (Healthy Eyes) ammonium lactate 12 % lotion 1 applic topical BEDTIME 11/15/23 01/12/25 bismuth subsalicylate 525 mg/15 mL 1,050 mg PO Q30M PRN Indigestion 11/15/23 01/12/25 oral suspension (Stomach Relief) erythromycin 5 mg/gram (0.5 %) eye 1 applic ophthalmic (eye) DAILY 11/15/23 01/12/25 ointment (3.5 gram tube) PRN infection peg 400-propylene glycol 0.4 %-0.3 1 drp ophthalmic (eye) QID PRN Dry 11/15/23 01/12/25 % eye drops (Systane Ultra) Eyes pantoprazole 20 mg tablet,delayed 40 mg PO DAILY 01/06/24 01/12/25 release (Protonix) acetaminophen 300 mg-codeine 30 mg 1 tab PO Q8H PRN chronic pain 02/06/24 01/12/25 tablet lisinopril 5 mg tablet 5 mg PO QPM 02/06/24 01/12/25 magnesium hydroxide 400 mg/5 mL 30 - 60 ml PO DAILY PRN 02/06/24 01/12/25 oral suspension (Milk of Magnesia) Constipation insulin NPH isoph U-100 human 100 25 unit SUBCUT TID 03/13/24 01/12/25 unit/mL (3 mL) subcutaneous pen (Humulin N NPH U-100 Insulin KwikPen) insulin degludec 100 unit/mL (3 10 unit SUBCUT DAILY 09/17/24 01/12/25 mL) subcutaneous pen (Tresiba FlexTouch U-100 insulin) Previous Rx's ?Medication ?Instructions ?Recorded acetaminophen 500 mg tablet 500 mg PO Q6H PRN pain (scale 12/13/21 (Tylenol Extra Strength) score 1-3) #0 tabs metoprolol succinate 25 mg 25 mg PO DAILY #30 tabs 12/13/21 tablet,extended release 24 hr potassium chloride 20 mEq 20 meq PO DAILY #90 tabs 05/29/22 tablet,extended release meclizine 25 mg tablet 25 mg PO TID PRN dizziness #20 tabs 02/06/24 mupirocin 2 % topical ointment 1 applic topical BID 2 weeks #22 03/20/24 grams buspirone 10 mg tablet 10 mg PO BID #60 tabs 11/09/24 fluoxetine 20 mg capsule 20 mg PO QAM #30 caps 11/09/24 Allergies Allergy/AdvReac Type Severity Reaction Status Date / Time No Known Allergies Allergy Verified 01/12/25 09:54 [facility] ED PFS: Medical History Diastolic CHF Chronic kidney disease, stage 3a GERD (gastroesophageal reflux disease) Diabetes Hyperlipidemia Blind Hepatitis C Hypertension Psychiatric care Anxiety disorder, unspecified Major depressive disorder, recurrent, in full remission Surgical History History of eye surgery Social History Smoking and tobacco/nicotine status: former use of tobacco/nicotine Quit status (tobacco/nicotine): has quit using Year quit tobacco: 1196 Former quit date comment: 2 PPD since age 16 Second hand smoke exposure: No Physical Exam Const: COMMON NORMALS: patient oriented x3 HENMT: COMMON NORMALS: normocephalic and atraumatic HEAD & SCALP: normocephalic and atraumatic Neck/C-Spine: COMMON NORMALS: full ROM and supple Chest: COMMONS NORMALS: normal inspection of the chest Resp: COMMON NORMALS: normal respiratory effort Cardio: COMMON NORMALS: regular rate RATE: regular rate Extremity: COMMON NORMALS: full ROM NARRATIVE EXTREMITY EXAM: Slight swelling to left hand no obvious deformities good cap refill bilateral extremities no erythema or warmth to touch no rash Neuro: COMMON NORMALS: patient oriented x3, moves all extremities and no focal motor deficits Psych: COMMON NORMALS: mental status grossly normal, Normal thought process present and cooperative THOUGHT PROCESS: Normal thought process present Skin: COMMON NORMALS: no rashes or lesions noted and no wounds GENERAL SKIN EXAM: no rashes or lesions noted Course Vital Signs: Vital signs: Vital Signs Temperature 98.0 F 03/05/25 15:19 Pulse Rate 66 03/05/25 15:19 Respiratory Rate 18 03/05/25 15:19 Blood Pressure 131/84 03/05/25 15:19 Pulse Oximetry 98 03/05/25 15:19 Oxygen Delivery Me thod Room Air 03/05/25 15:19 MDM - Skin/Abscess/Foreign Bdy Medicial Decision Making Patient presents here with bilateral hand pains been chronic in nature exam here is benign she has no signs of septic arthritis did do an ultrasound rule out DVT she had some slight swelling of the left no signs of DVT she has no signs of arterial occlusion this is likely arthralgia. She is to follow back up with her PCP and return if worsening I did discuss this with her caregiver they understand and agree to plan Medical Records I reviewed the patient's medical records. All radiology interpretation(s) finalized by discharge Discharge Plan Discharge Patient Disposition: Home Clinical Impression: Bilateral hand pain Condition: Stable Prescriptions: No Action fluticasone propionate [Flonase Allergy Relief] 50 mcg/actuation spray,suspension 2 spray INTRANASAL DAILY pantoprazole [Protonix] 20 mg tablet,delayed release (DR/EC) 40 mg PO DAILY lorazepam 0.5 mg tablet 0.5 mg PO BID PRN (Reason: Anxiety) buspirone 10 mg tablet 10 mg PO BID Qty: 60 4RF Rx Instructions: Take one tablet twice a day, morning and evening fluoxetine 20 mg capsule 20 mg PO QAM Qty: 30 4RF Rx Instructions: Take one capsule by mouth every morning Jardiance 25 mg tablet 25 mg PO DAILY Healthy Eyes 300 mcg-200 mg-27 mg-2 mg tablet 1 tab PO DAILY Rx Instructions: administer after a meal rosuvastatin 40 mg tablet 40 mg PO BEDTIME ammonium lactate 12 % lotion 1 applic topical BEDTIME erythromycin 5 mg/gram (0.5 %) ointment 1 applic ophthalmic (eye) DAILY PRN (Reason: infection) Stomach Relief 525 mg/15 mL suspension 1,050 mg PO Q30M PRN (Reason: Indigestion) Rx Instructions: do not exceed 8 doses in a 24 hour period Systane Ultra 0.4-0.3 % drops 1 drp ophthalmic (eye) QID PRN (Reason: Dry Eyes) Humulin N NPH Insulin KwikPen 100 unit/mL (3 mL) insulin pen 25 unit SUBCUT TID Rx Instructions: per sliding scale mupirocin 2 % ointment 1 applic topical BID 14 Days Qty: 22 0RF Rx Instructions: Apply with band-aid BID for 2 weeks insulin degludec [Tresiba FlexTouch U-100] 100 unit/mL (3 mL) insulin pen 10 unit SUBCUT DAILY potassium chloride 20 mEq tablet extended release 20 meq PO DAILY Qty: 90 3RF acetaminophen [Tylenol Extra Strength] 500 mg Tablet 500 mg PO Q6H MDD 4 tabs PRN (Reason: pain (scale score 1-3)) Qty: 0 0RF metoprolol succinate 25 mg tablet extended release 24 hr 25 mg PO DAILY Qty: 30 0RF acetaminophen-codeine 300-30 mg tablet 1 tab PO Q8H PRN (Reason: chronic pain) Milk of Magnesia 400 mg/5 mL Suspension 30 - 60 ml PO DAILY PRN (Reason: Constipation) lisinopril 5 mg tablet 5 mg PO QPM meclizine 25 mg tablet 25 mg PO TID PRN (Reason: dizziness) Qty: 20 0RF Discharge Orders: Discharge ED (Routine); Ordered 03/05/25 Ordered By: Obdulia Mesa Referrals: Umair Kay MD [Primary Care Provider, Family Practice] - 4-7 days Discharge Diet: Advance as tolerated Discharge Activity: Resume usual activity Patient Instructions: Arthralgia (ED) Print Language: Portuguese Coding Level of Care Code ED Project Geophysicist for Peggy Hope
== END 2025-03-05 18:05 | disposition home or self-care (01) ==
PROVIDERS: Emergency Provider Emergency Medicine; PCP Family Medicine
DX: M79.642 Pain in left hand (principal); M79.641 Pain in right hand; Z79.4 Long term (current) use of insulin; Z87.891 Personal history of nicotine dependence; E11.22 Type 2 diabetes mellitus with diabetic chronic kidney disease; I13.0 Hypertensive heart and chronic kidney disease with heart failure and stage 1 through stage 4 chronic kidney disease, or unspecified chronic kidney disease; N18.31 Chronic kidney disease, stage 3a; I50.30 Unspecified diastolic (congestive) heart failure
CPT/HCPCS: 93971; 99284

== ENCOUNTER → 2025-04-07 08:05 | Outpatient (BNVA) | payer MEDICARE, MEDICAID, SELFPAY | PROVIDERS: PCP Family Medicine; Visit Provider Student in an Organized Health Care Education/Training Program | DX: G56.23 Lesion of ulnar nerve, bilateral upper limbs (principal); G56.03 Carpal tunnel syndrome, bilateral upper limbs; Z46.89 Encounter for fitting and adjustment of other specified devices | CPT/HCPCS: 73130 ==

== ENCOUNTER 2025-04-07 09:33 | Outpatient (CLI) | payer MEDICARE, MEDICAID, SELFPAY | END 2025-04-07 09:34 | disposition home or self-care (01) | LOC: SPT 09:33 | PROVIDERS: PCP Family Medicine; Visit Provider Student in an Organized Health Care Education/Training Program | DX: Z46.89 Encounter for fitting and adjustment of other specified devices (principal); G56.03 Carpal tunnel syndrome, bilateral upper limbs; G56.23 Lesion of ulnar nerve, bilateral upper limbs | CPT/HCPCS: L3908 ==

== ENCOUNTER 2025-04-22 11:07 | Outpatient (CLI) | payer MEDICARE, MEDICAID, SELFPAY ==
--- NOTE | 2025-04-22 11:16 | USCV_ITS ---
Hyun Bowers Age: 79 Gender: F : 1945 Exam Date: 04/22/2025 11:40 Ordering Phys: Umair Kay MD Technologist: Exam Location: [facility] [place] Indication: as BP: 120 / 70 HR: 67 Rhythm: Sinus Technical Quality: Adequate MEASUREMENTS (Male / Female) Normal Values 2D ECHO LV Diastolic Diameter PLAX 4.3 cm 4.2 - 5.9 / 3.9 - 5.3 cm IVS Diastolic Thickness 1.4 cm 0.6 - 1.0 / 0.6 - 0.9 cm IVS Systolic Thickness 2.0 cm LVPW Diastolic Thickness 1.6 cm 0.6 - 1.0 / 0.6 - 0.9 cm LVPW Systolic Thickness 1.9 cm LVOT Diameter 2.0 cm LV Ejection Fraction 2D Teich 67.0 % LV Ejection Fraction MOD 4C 70.0 % LV Ejection Fraction MOD 2C 67.1 % LV Ejection Fraction 2C AL 66.6 % LA Diameter 3.4 cm RA Systolic Volume 4C AL 36.4 ml RA Systolic Volume 4C MOD 34.8 ml Aorta at Sinotubular Diameter 2.8 cm IVC Diameter 2.1 cm M-MODE LA Ao Ratio MM 1.1 AV Cusp Separation MM 2.3 cm DOPPLER AV Peak Velocity 202.0 cm/s LVOT Peak Velocity 76.0 cm/s AV Area Cont Eq vti 1.4 cm squared AV Area Cont Eq pk 1.2 cm squared MV Peak Velocity 124.0 cm/s MV Area PHT 3.2 cm squared Mitral E to A Ratio 0.7 TR Peak Velocity 126.0 cm/s TR Peak Gradient 6.4 mmHg PV Peak Velocity 98.0 cm/s FINDINGS Left Ventricle Normal left ventricular size and systolic function, EF of 60- 65%. No regional wall motion abnormalities. Grade 1 diastolic dysfunction Right Ventricle Normal in size and function Right Atrium Normal in size Left Atrium Normal in size IA Septum Grossly normal Mitral Valve Mild to moderate mitral annular calcification. Trace mitral regurgitation Aortic Valve Aortic valve is thickened and calcified. Mild aortic stenosis with aortic valve area of 1.39 cm squared and mean gradient of 7.74 mmHg Tricuspid Valve Insufficient TR jet to calculate RVSP Pulmonic Valve Not well-visualized Pericardium Normal Aorta Normal in size IVC Not well visualized CONCLUSIONS LV systolic function is normal with EF of 60 to 65%. Grade 1 diastolic dysfunction. Trace mitral regurgitation Mild aortic stenosis Filiberto Molina MD (Electronically Signed) Final Date: 24 April 2025 13:54 S
== END 2025-04-22 11:08 | disposition home or self-care (01) ==
LOC: RAD 11:07
PROVIDERS: PCP Family Medicine; Visit Provider Family Medicine
DX: R01.1 Cardiac murmur, unspecified (principal); I51.89 Other ill-defined heart diseases; I34.0 Nonrheumatic mitral (valve) insufficiency; I35.0 Nonrheumatic aortic (valve) stenosis
CPT/HCPCS: 93306

== ENCOUNTER → 2025-05-10 10:39 | Outpatient (BNVA) | payer MEDICARE, MEDICAID, SELFPAY | PROVIDERS: PCP Family Medicine; Visit Provider Podiatrist Foot & Ankle Surgery | DX: E11.8 Type 2 diabetes mellitus with unspecified complications (principal); L60.3 Nail dystrophy; L84 Corns and callosities; Z91.81 History of falling; N18.31 Chronic kidney disease, stage 3a; E11.42 Type 2 diabetes mellitus with diabetic polyneuropathy; Z79.4 Long term (current) use of insulin | CPT/HCPCS: 11055; 11721 ==